=== PATIENT | male | born 1965 | race Caucasian/White ===

== ENCOUNTER → 2018-06-15 20:23 | Outpatient (CLI) | payer OTHER, SELFPAY | PROVIDERS: Visit Provider Family Medicine | DX: G47.33 Obstructive sleep apnea (adult) (pediatric) (principal) | CPT/HCPCS: 95811 ==

== ENCOUNTER → 2018-07-01 10:51 | Outpatient (CLI) | payer OTHER, SELFPAY ==
[2018-07-01 11:22] LABS: Hematocrit 40.5 % (40-54); Hemoglobin 13.4 g/dl (13.0-16.5); Mean Corp Hgb Conc 33.1 g/gl (32-36); Mean Corpuscular Hgb 29.5 pg (27.0-32.0); Mean Platelet Vol. 10.6 fl (6.2-12.0); Platelet Count 250 K/mm3 (150-450); RBC Distribution Width CV 12.7 % (11.6-14.6); RBC Distribution Width SD 40.6 fl (35.1-43.9); Red Blood Count 4.55 M/mm3 (4.6-6.2); White Blood Count 6.9 K/mm3 (4.4-11.0)
[2018-07-01 11:23] LABS: Scan Indicated on CBC? Y/N NO
[2018-07-01 12:01] LABS: ALB/GLOB Ratio 0.9 RATIO (0.9-2.4); AST(SGOT) 21 U/L (15-37); Alanine Aminotransfer ALT/SGPT 30 U/L (16-61); Albumin, Serum 3.4 g/dL (3.2-5.0); Alkaline Phosphatase 79 U/L (45-117); Anion Gap 5 (5-15); BUN 9 mg/dL (7-18); BUN/Creat Ratio 7.3 RATIO (10-20); Calcium,Total 8.2 mg/dL (8.5-10.1); Chloride 106 mmol/L (98-107); Cholesterol 159 mg/dL (200); Creatinine, Serum 1.23 mg/dL (0.70-1.30); EST Glomerular Filtration Rate 65 mL/min (>60); Est Glom Filt Rate - Afr Amer 79 mL/min (>60); Globulin 3.7 g/dL (2.2-4.2); Glucose 99 mg/dL (74-106); High Density Lipoprotein 36 mg/dL; Potassium 3.7 mmol/L (3.5-5.1); Protein, Total 7.1 g/dL (6.4-8.2); Sodium Level 140 mmol/L (136-145); Thyroid Stim Hormone (TSH) 2.18 uIU/mL (0.358-3.74); Triglycerides 140 mg/dL; Very Low Density Lipoprotein 28 mg/dL (5-40)
== END ==
PROVIDERS: Family Provider Family Medicine; PCP Family Medicine; Visit Provider Family Medicine
DX: Z00.00 Encounter for general adult medical examination without abnormal findings (principal); E03.9 Hypothyroidism, unspecified; E55.9 Vitamin D deficiency, unspecified
CPT/HCPCS: 36415; 80053; 80061; 82306; 84443; 85027

== ENCOUNTER → 2020-08-14 13:02 | Outpatient (CLI) | payer OTHER, SELFPAY ==
[2019-12-14 13:54] VITALS: BMI 34.8
[2020-08-14 13:30] LABS: Hematocrit 39.7 % (40-54); Mean Corp Hgb Conc 32.7 g/dL (32-36); Mean Corpuscular Hgb 29.7 pg (27.0-32.0); Mean Corpuscular Volume 90.8 fL (80-94); Mean Platelet Vol. 11.1 fl (6.2-12.0); Platelet Count 251 K/mm3 (150-450); RBC Distribution Width CV 12.2 % (11.6-14.6); RBC Distribution Width SD 40.4 fl (35.1-43.9); Red Blood Count 4.37 M/mm3 (4.6-6.2); White Blood Count 6.8 K/mm3 (4.4-11.0)
[2020-08-14 13:34] LABS: Erythrocyte Sedimentation Rate 6 mm/hr (0-20)
[2020-08-14 14:08] LABS: ALB/GLOB Ratio 1.1 RATIO (0.9-2.4); AST(SGOT) 21 U/L (15-37); Alanine Aminotransfer ALT/SGPT 30 U/L (16-61); Albumin, Serum 3.7 g/dL (3.2-5.0); Alkaline Phosphatase 66 U/L (45-117); Anion Gap 2 (5-15); BUN 20 mg/dL (7-18); BUN/Creat Ratio 17.7 RATIO (10-20); Calcium,Total 8.6 mg/dL (8.5-10.1); Chloride 108 mmol/L (98-107); Cholesterol 143 mg/dL (200); Creatinine, Serum 1.13 mg/dL (0.70-1.30); EST Glomerular Filtration Rate 72 mL/min (>60); Est Glom Filt Rate - Afr Amer 87 mL/min (>60); Globulin 3.3 g/dL (2.2-4.2); Glucose 83 mg/dL (74-106); High Density Lipoprotein 46 mg/dL; Potassium 4.4 mmol/L (3.5-5.1); Sodium Level 139 mmol/L (136-145); Thyroid Stim Hormone (TSH) 1.73 uIU/mL (0.358-3.74); Triglycerides 91 mg/dL; Very Low Density Lipoprotein 18 mg/dL (5-40)
== END ==
PROVIDERS: PCP Family Medicine; Referring Provider Family Medicine; Visit Provider Family Medicine
DX: Z00.00 Encounter for general adult medical examination without abnormal findings (principal); R06.02 Shortness of breath; E03.9 Hypothyroidism, unspecified; U07.1 COVID-19; I25.10 Atherosclerotic heart disease of native coronary artery without angina pectoris
CPT/HCPCS: 36415; 80053; 80061; 84443; 85027; 85652; 86141

== ENCOUNTER → 2020-09-06 | Outpatient (CLI) | payer OTHER, SELFPAY ==
[2019-12-14 13:54] VITALS: BMI 34.8
--- NOTE | 2020-09-06 12:35 | ECHOCS_ITS ---
Reason For Study: SOB Procedure This was a 2D Doppler, Color Flow transthoracic echocardiogram. The study was technically difficult. Contrast injection was performed. Exam performed in department. Left Ventricle Normal LV size. Left ventricular systolic function is normal. The estimated ejection fraction is 60 %. Transmitral doppler flow suggestive of impaired relaxation of left ventricle. No regional wall motion abnormalities noted. Right Ventricle Normal RV size. Normal systolic function. Atria Normal left atrium. Normal right atrium. Agitated saline contrast study positive for right to left interatrial shunt compatible with either a PFO versus ASD. Mitral Valve There is no mitral annular calcification. Normal mitral valve. Trivial mitral valve insufficiency. Tricuspid Valve Normal tricuspid valve. Trivial tricuspid valve insufficiency. Unable to estimate RV systolic pressure/pulmonary artery pressure due to technically difficult study. Aortic Valve Trisinus/trileaflet aortic valve. Normal aortic valve. Pulmonic Valve The pulmonic valve is not well visualized. Trivial pulmonic valve insufficiency. Great Vessels Normal sized aortic root. Pericardium/Pleural No pericardial effusion. Medication 22 gauge I.V. with prn adaptor inserted into left arm. Diluted definity 4ml given slow IV push to enhance endocardial definition. MMode/2D Measurements & Calculations LVIDd: 5.2 cm IVSd: 0.88 cm Ao root diam: 3.4 cm LVIDs: 3.4 cm LVPWd: 1.0 cm RVDd: 3.6 cm FS: 34.1 % LAV(MOD-bp): 47.5 ml LVAd ap4: 35.4 cm2 SV(MOD-sp4): 77.0 ml LAV(MOD-bp) Indexed: 20.2 ml/m2 EDV(MOD-sp4): 132.8 ml LAV(MOD-sp2): 52.4 ml EDV(sp4-el): 137.1 ml LAV(MOD-sp4): 39.0 ml LVAs ap4: 21.5 cm2 ESV(MOD-sp4): 55.8 ml ESV(sp4-el): 56.8 ml EF(MOD-sp4): 58.0 % EF(sp4-el): 58.6 % SV(sp4-el): 80.3 ml LA A4 area: 15.6 cm2 LA dimension(2D): 4.2 cm RA A4 area: 15.5 cm2 Time Measurements MV dec time: 0.27 sec Doppler Measurements & Calculations MV E max hector: 71.5 cm/sec Lat Peak E' Hector: 9.3 cm/sec Med Peak E' Hector: 6.8 cm/sec MV A max hector: 88.5 cm/sec E/E' lat: 7.7 E/E' med: 10.5 MV E/A: 0.81 Ao V2 max: 147.4 cm/sec LV V1 max: 111.6 cm/sec PA V2 max: 99.3 cm/sec Ao max P.7 mmHg LV V1 max P.0 mmHg PI end-d hector: 69.6 cm/sec Interpretation Summary The study was technically difficult. Contrast injection was performed. Left ventricular systolic function is normal. The estimated ejection fraction is 60 %. Trivial mitral valve insufficiency. Trivial tricuspid valve insufficiency. Trivial pulmonic valve insufficiency. Unable to estimate RV systolic pressure/pulmonary artery pressure due to technically difficult study. Transmitral doppler flow suggestive of impaired relaxation of left ventricle Agitated saline contrast study positive for right to left interatrial shunt compatible with either a PFO versus ASD. Ordering Physician: Malcom Vivar Referring Physician: Malcom Vivar Performed By: Soniya Bryant RDCS
--- NOTE | 2020-09-06 12:35 | EKG12_ITS ---
Test Reason : PRE OP Blood Pressure : / mmHG Vent. Rate : 078 BPM Atrial Rate : 078 BPM P-R Int : 152 ms QRS Dur : 086 ms QT Int : 352 ms P-R-T Axes : 031 -12 040 degrees QTc Int : 401 ms Sinus rhythm with occasional Premature ventricular complexes Otherwise normal ECG Confirmed by ALEJANDRO URIARTE, SUKI ([id number]), newspaper photo editor DESTINEE TAYLOR ([id number]) on 09/09/2020 8:12:25 AM Referred By: Malcom Vivar Confirmed By:SUKI ALLEN MD
== END | disposition home or self-care (01) ==
LOC: PSN 12:33
PROVIDERS: PCP Family Medicine; Referring Provider Family Medicine; Visit Provider Family Medicine
DX: I25.10 Atherosclerotic heart disease of native coronary artery without angina pectoris (principal); R06.02 Shortness of breath; U07.1 COVID-19
CPT/HCPCS: 93005; 93306; Q9957; A4216; C8929

== ENCOUNTER → 2025-03-14 | Outpatient (CLI) | payer OTHER, SELFPAY ==
--- NOTE | 2025-03-14 10:17 | RAD_ITS ---
PROCEDURE: KNEE 4 OR MORE VIEWS 03/14/2025 REASON FOR EXAM: CHRONIC KNEE PAIN TECHNIQUE: 4 views of the right knee FINDINGS: Bones: No fracture. No suspicious bone lesion. Joints: Moderate degenerative changes. Effusion: Small joint effusion. Soft tissues: Soft tissues are unremarkable. Other: RAD/Knee 4 or More Views IMPRESSION: DEGENERATIVE OSTEOARTHROSIS. NO ACUTE FINDINGS. Reading Location: [id number]
--- NOTE | 2025-03-14 10:17 | RAD_ITS ---
PROCEDURE: KNEE 4 OR MORE VIEWS 03/14/2025 REASON FOR EXAM: CHRONIC KNEE PAIN TECHNIQUE: 4 views of the left knee FINDINGS: Bones: No fracture. No suspicious bone lesion. Joints: Moderate degenerative changes. Effusion: Small joint effusion. Soft tissues: Soft tissues are unremarkable. Other: RAD/Knee 4 or More Views IMPRESSION: DEGENERATIVE OSTEOARTHROSIS. NO ACUTE FINDINGS. Reading Location: [id number]
== END | disposition home or self-care (01) ==
LOC: MTRAD 10:17
PROVIDERS: PCP Family Medicine; Referring Provider Orthopaedic Surgery; Visit Provider Orthopaedic Surgery
DX: M25.562 Pain in left knee (principal); G89.29 Other chronic pain
CPT/HCPCS: 73564

== ENCOUNTER → 2025-03-29 | Outpatient (CLI) | payer OTHER, SELFPAY ==
[2025-03-29 11:55] LABS: Absolute Lymphocyte Count 1.68 X10^3/uL (0.83-4.51); Absolute Neutrophil Count 3.6 X10^3/uL (2.0-7.7); Basophil# 0.04 X10^3/uL; Basophil% 0.7 % (0-1); Eosinophil# 0.12 X10^3/uL; Eosinophils% 2.1 % (0-5); Hematocrit 42.3 % (40-54); Hemoglobin 13.8 g/dL (13.0-16.5); Lymphocyte # 1.68 X10^3/ul (0.83-4.51); Lymphocyte % 28.8 % (19-41); Mean Corp Hgb Conc 32.6 g/dL (32-36); Mean Corpuscular Hgb 30.6 pg (27.0-32.0); Mean Corpuscular Volume 93.8 fL (80-94); Mean Platelet Vol. 11.2 fl (6.2-12.0); Monocyte# 0.39 X10^3/uL; Monocyte% 6.7 % (0-10); NRBC Flagged by Analyzer 0 % (0-5); Neutrophil # 3.56 X10^3/uL (2.7-7.7); Platelet Count 252 K/mm3 (150-450); RBC Distribution Width CV 12.9 % (11.6-14.6); RBC Distribution Width SD 44.2 fl (35.1-43.9); Red Blood Count 4.51 M/mm3 (4.6-6.2); White Blood Count 5.8 K/mm3 (4.4-11.0)
[2025-03-29 12:03] LABS: Prothrombin Time (Protime)PT. 13.8 SECONDS (11.7-14.9)
[2025-03-29 12:04] LABS: Partial Thromboplast Time 26.4 Seconds (24.1-36.2)
[2025-03-29 12:28] LABS: Hemoglobin A1c 5.6 % (<=5.6)
[2025-03-29 12:31] LABS: Anion Gap 10 (5-15); BUN 17 mg/dL (4-19); BUN/Creat Ratio 18.2 RATIO (10-20); Calcium,Total 9.1 mg/dL (7.6-11.0); Carbon Dioxide 25.5 mmol/L (21.0-32.0); Chloride 105 mmol/L (98-108); Creatinine, Serum 0.93 mg/dL (0.70-1.20); EST Glomerular Filtration Rate 95 (>60); Glucose 96 mg/dL (70-99); Magnesium 2.3 mg/dL (1.5-2.2); Potassium 4.3 mmol/L (3.3-5.1); Sodium Level 140 mmol/L (133-145)
[2025-03-30 05:07] LABS: Fructosamine 235 umol/L (0-285)
== END | disposition home or self-care (01) ==
LOC: LAB 11:09
PROVIDERS: Anesthesiology; PCP Family Medicine; Referring Provider Orthopaedic Surgery; Visit Provider Orthopaedic Surgery
DX: Z01.818 Encounter for other preprocedural examination (principal)
CPT/HCPCS: 36415; 80048; 82985; 83036; 83735; 85025; 85610; 85730; 86850; 86900; 86901; 87077; 87081

== ENCOUNTER → 2025-04-03 | Outpatient (CLI) | payer OTHER, SELFPAY ==
--- NOTE | 2025-04-03 07:14 | CT_ITS ---
PROCEDURE: EXTREMITY LOWER WITHOUT CONTRA 04/03/2025 REASON FOR EXAM: TEMPLATING FOR RIGHT TKA Enrique protocol. TECHNIQUE: Axial CT images of the right lower extremity obtained without intravenous contrast. Coronal and Sagittal reconstruction series were provided. One or more dose reduction techniques were used (e.g., Automated exposure control, adjustment of the mA and/or kV according to patient size, use of iterative reconstruction technique). RADIATION DOSE SUMMARY: CTDlvol: 19 mGy DLP: 1419.78 mGycm COMPARISON: None FINDINGS: Bones: No evidence of fracture. Joints: Imaging of the right hip joint was obtained. There is marked degree of of the prior knee joint with moderate degree of osteoarthritis of the patellofemoral joint. Imaging of the ankle joint was obtained. No significant abnormality is seen. Soft Tissues: Tiny right knee joint effusion. CT/Extremity Lower without Contra IMPRESSION: Osteoarthritis of the right knee joint as described for Enrique protocol. Reading Location: [id number]
== END | disposition home or self-care (01) ==
LOC: CT 07:08
PROVIDERS: PCP Student in an Organized Health Care Education/Training Program; Referring Provider Orthopaedic Surgery; Visit Provider Orthopaedic Surgery
DX: M17.11 Unilateral primary osteoarthritis, right knee (principal)
CPT/HCPCS: 73700

== ENCOUNTER 2025-04-10 08:58 | Day surgery (SDC) | payer OTHER, SELFPAY ==
--- NOTE | 2025-03-29 11:35 | EKG12_ITS ---
Test Reason : PREOP Blood Pressure : */* mmHG Vent. Rate : 61 BPM Atrial Rate : 61 BPM P-R Int : 134 ms QRS Dur : 82 ms QT Int : 384 ms P-R-T Axes : 19 2 18 degrees QTcB Int : 386 ms Normal sinus rhythm Normal ECG Confirmed by Aren Madison ([id number]), editor index EMILY ESTES ([id number]) on 03/30/2025 12:20:17 PM Referred By: Ariel Antonio Confirmed By: Aren Madison
--- NOTE | 2025-03-29 15:13 | PAT.ANESEVAL ---
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 When Was Last Pacemaker Check QUESTION #4 FULL TEXT: You/Your Family Experience fever (hyperthermia) with Anesthesia Last Oral Intake Last Oral intake: Last Oral Intake NPO since Meds taken in AM with sips of water? Meds patient instructed to take am of surgery PONV PONV - senior drafter: PONV - senior drafter Female No 03/27/25 09:35 HX of Motion Sickness No 03/27/25 09:35 HX of N/V After Surgery No 03/27/25 09:35 Non-Smoker Yes 03/27/25 09:35 Duration of Surgery greater No 03/27/25 09:35 than 60 minutes Number of Risk Factors 1 03/27/25 09:35 PONV Score Low Risk 03/27/25 09:35 Height & Weight Height & Weight: Anesthesia: Height & Weight Height 5 ft 10 in 03/14/25 10:39 Respiratory Assessment Respiratory Assessment - senior drafter: Respiratory Tract Infection Hx - senior drafter Hx Respiratory Tract Infection No 03/27/25 09:35 STOP Sleep Apnea STOP Sleep Apnea - senior drafter: STOP Sleep Apnea - senior drafter Hx Hypertension No 03/27/25 09:35 Hx Sleep Apnea No 03/27/25 09:35 CPAP BIPAP Do you snore loudly (louder Yes 03/27/25 09:35 than talking or can be heard Do you often feel tired/ No 03/27/25 09:35 fatigued/ sleepy during daytime? Has anyone observed you stop No 03/27/25 09:35 breathing during sleep? STOP Results Negative 03/27/25 09:35 QUESTION #5 FULL TEXT : Do you snore loudly (louder than talking or can be heard through closed doors)? 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 Specify any problems Hx of Preganancy in last 3 N/A 03/27/25 09:35 Months Nurse Filling Out Transfusion VCHRISTIN 03/27/25 09:35 & Questions: Date: 03/27/25 03/27/25 09:35 Time: 09:44 03/27/25 09:35 Patient unable to answer at this time (ie. confused, unrespo /Reproduction History /Reproductive History - senior drafter: /Reproductive Hx- senior drafter Hx Now Gestational Age (in weeks): EDC: Hx Hx Para Hx Section SAB PFSH Medical History Wears glasses Wears contact lenses Alcohol use Kidney stones Back pain Injury of back Injury of head and neck Non-smoker Sleep apnea History of edema History of pain when walking History of echocardiogram History of stress test Osteoarthritis Chronic headaches Cataracts, bilateral Arthritis Home Medications ?Medication ?Instructions ?Recorded ?Last Taken ?Type hydrocodone-acetaminophen 5-325mg 1 tab PO BID PRN pain 03/14/25 Unknown History 5mg-325mg meloxicam 15 mg tablet 15 mg PO QDAY 03/14/25 Unknown History pregabalin 150 mg capsule (Lyrica) 150 mg PO TID 03/14/25 Unknown History acetaminophen 500 mg capsule 1,000 mg PO Q6H PRN pain 03/27/25 Unknown History cholecalciferol (vitamin D3) 25 25 mcg PO DAILY 03/27/25 Unknown History mcg (1,000 unit) capsule (Vitamin D3) Allergy/AdvReac Type Severity Reaction Status Date / Time Penicillins Allergy Rash Verified 03/28/25 15:11 Family History Other Cancer Melanoma Surgical History Hx of elbow surgery History of rhinoplasty Hx of knee surgery Hx of appendectomy History of cataract surgery History of lumbar fusion Social History Smoking Status: Never smoker alcohol intake: current alcohol intake frequency: holidays/special occasions only substance use type: does not use what type of physical activity do you participate in: aerobics and weight training frequency: 1-2 times per week Audit: Pertinent Findings Pertinent Findings EKG Perinent findings: 09/06/20. Sinus rhythm with occasional PVC. Echo (EF%) pertinent findings: 09/06/2020. EF is 60%. No aortic stenosis is noted. Recommendation Anesthesia Recommendation Anesthesia recommendation: OPTIMIZED for anesthesia
[2025-04-10] VITALS (11 sets, daily range): BP systolic 112–139; BP diastolic 49–88; PULSE 54–80; RESP 8–16; TEMP 36.1–36.6; O2SAT 95–100; BMI 33.8
--- NOTE | 2025-04-10 09:06 | PCM.PRE.AN2 ---
ASA Classification* ASA Classification ASA Classification: 2 Assessment & Plan Anesthesia* Anesthesia Assessment Anesthesia Assessment: Discussed sedation and/or anesthesia options, risks, benefits, and alternatives with patient/parents/legal guardian/POA. Questions invited. The patient/parents/legal guardian/POA seems to understand and agrees to proceed with anesthesia plan. Reviewed the physical assessment, medical history, allergy history and patient home medications list prior to surgery/procedure/anesthetic and documented any changes. Performed airway and anesthesia risk assessments. Anesthesia Type Anesthesia Type: Spinal and Block Anesthesia Focused Assessment* Airway Assessment Mouth opens: >3 cm Mallampati Score: II Focused Labs Anesthesia Preop lab: CBC WBC 5.8 K/mm3 (4.4-11.0) 03/29/25 11:03/29/25 RBC 4.51 M/mm3 (4.6-6.2) L 03/29/25 11:20 03/29/25 Hgb 13.8 g/dL (13.0-16.5) 03/29/25 11:20 03/29/25 Hct 42.3 % (40-54) 03/29/25 11:20 03/29/25 Plt Count 252 K/mm3 (150-450) 03/29/25 11:20 03/29/25 CHEMISTRY Potassium 4.3 mmol/L (3.3-5.1) 03/29/25 11:20 03/29/25 Sodium 140 mmol/L (133-145) 03/29/25 11:20 03/29/25 Magnesium 2.3 mg/dL (1.5-2.2) H 03/29/25 11:20 03/29/25 Phosphorus 2.8 mg/dL (2.5-4.9) 08/07/16 15:19 08/07/16 BUN 17 mg/dL (4-19) 03/29/25 11:20 03/29/25 Creatinine 0.93 mg/dL (0.70-1.20) 03/29/25 11:20 03/29/25 Glucose 96 mg/dL (70-99) 03/29/25 11:20 03/29/25 TSH 1.73 uIU/mL (0.358-3.74) 08/14/20 13:09 08/14/20 COAG PT 13.8 SECONDS (11.7-14.9) 03/29/25 11:20 03/29/25 Pre-Assessment Diagnosis/Proposed Procedure Planned Operative Procedure(s): (R) Right Total Knee Replacement Robotic Arm Assisted, ERAS Anesthesia History 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 When Was Last Pacemaker Check QUESTION #4 FULL TEXT: You/Your Family Experience fever (hyperthermia) with Anesthesia Last Oral Intake Last Oral intake: Last Oral Intake NPO since Meds taken in AM with sips of water? 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 manager Female No 03/27/25 09:35 HX of Motion Sickness No 03/27/25 09:35 HX of N/V After Surgery No 03/27/25 09:35 Non-Smoker Yes 03/27/25 09:35 Duration of Surgery greater No 03/27/25 09:35 than 60 minutes Number of Risk Factors 1 03/27/25 09:35 PONV Score Low Risk 03/27/25 09:35 Height & Weight Height & Weight: Anesthesia: Height & Weight Height 5 ft 10 in 03/14/25 10:39 Respiratory Assessment Respiratory Assessment - actuarial manager: Respiratory Tract Infection Hx - actuarial manager Hx Respiratory Tract Infection No 03/27/25 09:35 STOP Sleep Apnea STOP Sleep Apnea - actuarial manager: STOP Sleep Apnea - actuarial manager Hx Hypertension No 03/27/25 09:35 Hx Sleep Apnea No 03/27/25 09:35 CPAP BIPAP Do you snore loudly (louder Yes 03/27/25 09:35 than talking or can be heard Do you often feel tired/ No 03/27/25 09:35 fatigued/ sleepy during daytime? Has anyone observed you stop No 03/27/25 09:35 breathing during sleep? STOP Results Negative 03/27/25 09:35 QUESTION #5 FULL TEXT : Do you snore loudly (louder than talking or can be heard through closed doors)? 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 Specify any problems Hx of Preganancy in last 3 N/A 03/27/25 09:35 Months Nurse Filling Out Transfusion VCHRISTIN 03/27/25 09:35 & Questions: Date: 03/27/25 03/27/25 09:35 Time: 09:44 03/27/25 09:35 Patient unable to answer at this time (ie. confused, unrespo /Reproduction History /Reproductive History - actuarial manager: /Reproductive Hx- actuarial manager Hx Now Gestational Age (in weeks): EDC: Hx Hx Para Hx Section SAB Active Medications Active Medications: Current Medications Generic Name Dose Route Start Last Admin Trade Name Toyq PRN Reason Stop Dose Admin Acetaminophen 1,000 mg 04/10/25 11:15 Acetaminophen 500 Mg Tablet PO 04/10/25 11:16 PREOP ONE Celecoxib 400 mg 04/10/25 11:15 Celecoxib 200 Mg Capsule PO 04/10/25 11:16 PREOP ONE Dexamethasone Sodium Phosphate 10 mg 04/10/25 11:15 Dexamethasone 10 Mg/Ml Vial IV 04/10/25 11:16 INTRAOP ONE Gabapentin 600 mg 04/10/25 11:15 Gabapentin 600 Mg Tablet PO 04/10/25 11:16 PREOP ONE Tranexamic Acid 1,000 mg/ 110 mls @ 660 mls/hr 04/10/25 11:15 Sodium Chloride IV 04/10/25 11:24 INTRAOP ONE Tranexamic Acid 1,000 mg/ 110 mls @ 660 mls/hr 04/10/25 11:15 Sodium Chloride IV 04/10/25 11:24 INTRAOP ONE Lactated Ringer's 1,000 mls @ 125 mls/hr 04/10/25 11:15 IV 04/10/25 19:14 .Q8H GER Magnesium Sulfate 1 gm/ 102 mls @ 408 mls/hr 04/10/25 11:15 Dextrose IV 04/10/25 11:29 INTRAOP ONE Cefazolin Sodium 2 gm/ Sodium 110 mls @ 150 mls/hr 04/10/25 11:15 Chloride IV 04/10/25 11:58 INTRAOP ONE Lactated Ringer's 1,000 mls @ 15 mls/hr 04/10/25 09:15 IV .Q48H GER Insulin Human Lispro 1 - 6 unit 04/10/25 11:15 Insulin Lispro 100 Unit/Ml Insuln.Pen SC 04/10/25 18:00 Q4H PRN PRN BG>/= 180, SEE PROTOCOL Protocol Scopolamine HBr 1 patch 04/10/25 11:15 Scopolamine 1mg/72hr Patch TD 04/10/25 11:16 PREOP ONE PFSH Medical History Wears glasses Wears contact lenses Alcohol use Kidney stones Back pain Injury of back Injury of head and neck Non-smoker Sleep apnea History of edema History of pain when walking History of echocardiogram History of stress test Osteoarthritis Chronic headaches Cataracts, bilateral Arthritis Home Medications ?Medication ?Instructions ?Recorded ?Last Taken ?Type hydrocodone-acetaminophen 5-325mg 1 tab PO BID PRN pain 03/14/25 Unknown History 5mg-325mg meloxicam 15 mg tablet 15 mg PO QDAY 03/14/25 Unknown History pregabalin 150 mg capsule (Lyrica) 150 mg PO TID 03/14/25 Unknown History acetaminophen 500 mg capsule 1,000 mg PO Q6H PRN pain 03/27/25 Unknown History cholecalciferol (vitamin D3) 25 25 mcg PO DAILY 03/27/25 Unknown History mcg (1,000 unit) capsule (Vitamin D3) Allergy/AdvReac Type Severity Reaction Status Date / Time Penicillins Allergy Rash Verified 03/28/25 15:11 Family History Other Cancer Melanoma Surgical History Hx of elbow surgery History of rhinoplasty Hx of knee surgery Hx of appendectomy History of cataract surgery History of lumbar fusion Social History Smoking Status: Never smoker alcohol intake: current alcohol intake frequency: holidays/special occasions only substance use type: does not use what type of physical activity do you participate in: aerobics and weight training frequency: 1-2 times per week Review of Systems (Anesthesia) ROS Narrative System reviewed and no additional complaints, except as documented.
[2025-04-10] MEDS: Vancomycin HCl 1,500 MG in 0.9% Normal Saline (500mL Bag) 500 ML 250 MG IV (09:30)
[2025-04-10 09:43] LABS: Bedside Glucose 95 mg/dL (74-106)
[2025-04-10] MEDS: Scopolamine 1mg/72hr Patch 1 PATCH TD (10:07)
[2025-04-10] MEDS: Acetaminophen 500 MG Tablet 1000 MG PO ×2 (10:09→15:48)
[2025-04-10] MEDS: Gabapentin 600 MG Tablet PO (10:09)
[2025-04-10] MEDS: Celecoxib 200 MG Capsule 400 MG PO (10:09)
[2025-04-10] MEDS: Magnesium 1 GM over 15 mins IV (10:10)
--- NOTE | 2025-04-10 10:10 | HP.PCM_ITS ---
History and Physical Date of Admission: 04/10/25 [facility] [address] [place] [address] OFFICE VISIT Date of Service: 03/14/25 MR#: [id number] Acct: [id number] Name: ROXI MORELAND Jr. Rep #: [id number] : 1965 Provider: Dr. Ariel Antonio DO Age/Sex: 59/M Location: [facility] Status: Signed Intake Vital Signs 03/14/2510:39 Height 5 ft 10 in Weight: 232 lb BMI 33.3 Intake Visit Reasons: BILATERAL KNEES Chief Complaint: Bilateral knees Accompanied by: Self Is patient in pain?: Yes Pain scale (1-10): 7 Allergies Penicillins Allergy (Verified 03/14/25 10:43) Rash Medications ?Medication ?Instructions ?Recorded ?Confirmed ?Type ibuprofen 600 mg tablet 600 mg PO PRN PRN Pain 12/14/16 03/14/25 History hydrocodone-acetaminophen 5-325mg 1 tab PO BID PRN 03/14/25 03/14/25 Histo ry 5mg-325mg meloxicam 15 mg tablet 15 mg PO QDAY 03/14/25 03/14/25 History pregabalin 150 mg capsule (Lyrica) 150 mg PO QDAY 03/14/25 03/14/25 History Have you fallen in the past year?: [facility] History (Updated 03/14/25 @ 11:[address] Ariel Antonio DO) Infection of left elbow Osteoarthritis Chronic headaches Cataracts, bilateral Arthritis Surgical History History of cataract surgery History of lumbar fusion Family History Other Cancer Melanoma Social History (Updated 01/29/20 @ 12:[address] Ame Goncalves, JIM) Smoking Status: Never smoker alcohol intake: current alcohol intake frequency: holidays/special occasions only substance use type: does not use what type of physical activity do you participate in: aerobics and weight training frequency: 1-2 times per week HPI BILATERAL KNEES Details: This documentation accurately reflects the service provided and the decisions made by me, Dr. Ariel Antonio DO 03/14/25 0756. Part of today?s visit was documented by Ary Luque MA, acting as scribe. ROXI MORELAND is a 59 year old M with medical history significant for but not limited to lumbar degenerative disc disease, here today for bilateral knee pain. He states that the right knee is worse. His left leg symptoms are most related to his lumbar radiculopathy. His right knee pain is mostly medial. He has been having pain for 5-10 years and it getting worse over time. He does have a history of a lumbar fusion and does get radiculopathy down the left leg. 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 His left leg is weaker than the right. He did have an open surgery on his right knee where they cleaned out the knee in 1978. He did have steroid injections starting in 2018. He did have gel injection in 2020. His last steroid injection was in early November of this year. Over the years he has had about 10- 12 steroid injections. 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 Denies any drugs or tobacco. 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 Ortho Exam General General: Yes no acute distress and Yes well groomed Neurologic: Yes alert and Yes oriented x3 Psychologic: Yes reasonable and appropriate Right Knee Skin/Wound: No erythema, No ecchymosis and Yes swelling Homans Sign: No Knee ROM: Yes ROM-Extension -20 to 0 (-5) and Yes ROM-Flexion 0-140 (110) Examination: Yes Med jt line tenderness, Yes Lat jt line tenderness, Yes Crepitus, Yes Pain with flexion, Yes Pain with extention and Yes TTP Pes Anserine Stability: NML: Anterior Drawer, NML: Posterior Drawer, NML: Valgus 0, NML: Valgus 30, NML: Varus 0 and NML: Varus 30 Patella Translation: 1 Apprehension with Lateral Translation: No Patella Grind: Yes KNEE: no effusion pain with crepitation edema right leg worse than left medial scar from prior surgery no sign of infection no collateral instability Head: Normocephalic Atraumatic Chest: symmetrical rise, non-labored breathing, no audible wheeze Abdomen: no guarding, non-rigid Supplemental Info 03/14/2025 x-ray left knee: There is advanced medial compartment arthrosis with varus deformity there is spurring of the lateral tibial plateau moderate patellofemoral arthrosis 03/14/2025 x-ray right knee: There is advanced medial compartment arthrosis with varus deformity there is spurring of the lateral tibial plateau moderate patellofemoral arthrosis Coding Level of Care Code Off vis,new,level 3 Diagnoses Primary osteoarthritis of right knee M17.11 Osteoarthritis type: primary Primary osteoarthritis of left knee M17.12 Osteoarthritis type: primary Chronic narcotic use F11.90 Assessment and Plan Assessment and Plan (1) Right knee DJD: Status: Acute Qualifiers: Osteoarthritis type: primary Qualified Code(s): M17.11 - Unilateral primary osteoarthritis, right knee (2) Left knee DJD: Status: Acute Qualifiers: Osteoarthritis type: primary Qualified Code(s): M17.12 - Unilateral primary osteoarthritis, left knee (3) Chronic narcotic use: Status: Chronic Orders: Orders Knee 4 or More Views Today M25.562 - Pain in left knee Knee 4 or More Views Today M25.561 - Pain in right knee Plan Patient is here today for bilateral knee pain. I did obtained and review xrays today. I educated patient that he does have advanced arthritis of both knee more in the medial compartment and patellofemoral. I spoke with patient that his treatment options are do nothing, physical therapy, gel injections, steroid injections, anti-inflammatories, or a TKA. Patient wishes to proceed with a TKA of the right knee. Patient has had trial and failure of physical therapy, steroid injection, gel injections, knee bracing and anti-inflammatories. Reviewed the pre-operative plans with the patient. Risks and benefits of the procedure were fully explained, including but not limited to infection, neurovascular injury, continued pain, arthritis, stiffness, need for further surgery, re-injury, DVT, PE, general risks of anesthesia, and loss of limb or life. The patient understands all the risks and does wish to proceed with written consent. Risks, benefits and alternatives of surgery reviewed including but not limited to bleeding, infection, nerve, artery and/or tissue damage, fracture, VTE, mechanical feel of the knee, continued pain, stiffness and expected post-operative course.?Patient does have a crown that fell off one of his teeth that is not open or infected. Patient would like to hold off on having a new crown put on until after surgery. I would recommend patient wait until 3 months after surgery before getting the crown. We will need a dental clearance. He should plan to be off of work for 3 months. Patient does wok as an weight trainer and does know the exercises but I strongly recommend he go to physical therapy after the surgery or he will likely not be happy with his range of motion. I also encouraged him for preoperative therapy. I advised him that after a knee replacement he may not feel comfortable ever kneeling and if he does he should use a pad. Patient would like to do the Iovera procedure if insurance covers it. Tentative surgery date April 10, 2025 same-day surgery We did discuss MAKOplasty and will need a CT scan He will need to stop all NSAIDs 7 days prior to surgery. Plan Details Goals & Barriers: Goals Improve intersegmental motion Decrease inflammation Improve ROM Decrease pain Barriers Previous lumbar fusion at L2/L3 DDD Clinical Quality Measures Falls Risk Screening/Assistive Devices Have you fallen in the past year?: Yes 03/14/25 8531 <Electronically signed by Ariel Antonio DO> Date Ariel Antonio DO I have examined the patient and the H&P has been reviewed. There are no clinical changes since date of exam.
[2025-04-10] MEDS: Lactated Ringers 1,000 ML 15 ML IV (10:13)
[2025-04-10] MEDS: Cefazolin 2 GM in 0.9% Normal Saline (100mL Bag) 100 ML IV ×2 (11:00→16:45)
--- NOTE | 2025-04-10 11:00 | KNEE_PTH ---
PATIENT: ROXI MORELAND Jr. LOC: [facility] [place] U#:[id number] AGE/SX: 59/M ROOM: RE04/10/[address]: Dr. Ariel Antonio DO : 1965 BED: DIS: 04/10/2025 SPEC #: [id number] RECD: 04/10/25 18:17 STATUS: BEV REQ #: [id number] SARATH: 04/10/25 11:[address]: Ariel Antonio DEPT: SURGICAL PATHOLOGY RECD BY: Roger Cassidy ENTERED: 04/11/25 08:46 SP TYPE: TOTAL KNEE OTHR DR: Dr. Aren Jaimes DO Tissues: A - Knee, NOS Procedures: Decalcification bone/plaque Surgery Specimen Level III HEADER OPERATION: ERAS, right total knee replacement robotic arm assisted PRE-OP DIAGNOSIS: Right knee degenerative joint disease, left knee degenerative joint disease, chronic narcotic use TISSUE SUBMITTED: A- Bone and soft tissue right knee MICROSCOPIC DIAGNOSIS A. Right knee, degenerative joint disease, total knee arthroplasty: * Articular bone with reactive/degenerative changes. MICROSCOPIC DESCRIPTION Slides are reviewed. GROSS DESCRIPTION A. Received in formalin in a container labeled with the patient's name, date of , and bone and soft tissue R knee are multiple keen, firm, and irregular fragments of bone with minimal soft tissue measuring 9.5 x 8.0 x 5.2 cm in aggregate. The specimen consists of, but is not limited to, medial/lateral condyle and tibial plateau. The resection margins are smooth and firm and the cortical surfaces are pitted and granular with smooth areas of eburnation. Sectioning reveals firm and unremarkable surfaces. Toy Department Manager sections submitted in A1 following decalcification. [facility] 04-11-2025 CPT:23233,83859
[2025-04-10] MEDS: TXA 1000mg in NS100 100ml (IVPB at Incision) 660 MG IV (11:05)
[2025-04-10] MEDS: dexAMETHasone 10 MG/ML Vial IV (11:10)
[2025-04-10] MEDS: TXA 1000mg in NS100 100ml (IVPB at Closure) 660 MG IV (11:25)
[2025-04-10] MEDS: dexAMETHasone 4 MG/ML Vial (12:06)
[2025-04-10] MEDS: Epinephrine (1 mg/ml) 1 MG/ML VIAL (12:06)
[2025-04-10] MEDS: 0.9% Normal Saline (Pres. free 10 ML Vial (12:06)
[2025-04-10] MEDS: Bupivacaine 0.5% PF 10 ML VIAL (12:06)
--- NOTE | 2025-04-10 13:20 | PCM.OPRPT ---
Operative Report (Standard) Operative Information Date of Procedure: 04/10/25 Pre-Operative Diagnosis: Right knee DJD Post-Operative Diagnosis: Same Surgery/Procedure Performed: Right total knee arthroplasty business office director: Yes Emergency Department Aide: Pa Fermin Tasks completed by social human services assistants: Opening & closing, Implanting device and Retracting Type of Anesthesia: Spinal RN Documented Start/Stop Times: Operation Date: 04/10/25 11:00 Case Time Into Pre-Op 04/10/25 09:01 Out of Pre-Op 04/10/25 10:21 Anesthesia Start 04/10/25 10:30 Into Room 04/10/25 10:30 Procedure Start 04/10/25 11:12 Procedure Start Time: 11:12 Procedure Stop Time: 13:18 Select all DRAINS/GRAFTS/IMPLANTS that apply: Prosthetic device Prosthetic device details: [place] triathlon Estimated Blood Loss: 150 Specimen collected: Yes Description of specimen(s) removed: Bone and soft tissue Description of surgery: Preoperative diagnosis: Right knee DJD Postoperative diagnosis: Same Procedure: Right total knee arthroplasty CT guided Robotic Assisted Implant: [place] triathlon press fit, femoral component size 6, tibial baseplate size 6, asymmetric patella size 36, polyethylene X3 size 9 CS Anesthesia: Spinal with adductor canal block Tourniquet time: 12 minutes at 300 mmHg Complications: None Condition: Stable to PACU Estimated blood loss: 150 cc Electronic Installer Pa Fermin. My physician assistant clinical nurse manager was a vital part of this case. He was important in appropriate retraction during the case, and protection of soft tissues during procedure. His intimate knowledge of the case and my steps aided in safe and expedient completion of the procedure as well as appropriate position of the extremity during the case. He was also vital in assisting with closure under my direct supervision. Indication for procedure: This is a 59-year-old male with long standing degenerative joint disease of the knee who has failed conservative treatment and wished to proceed with elective total knee arthroplasty. Risk benefits and alternatives were reviewed including; risk of bleeding, infection, nerve artery and tissue damage, continued pain, postoperative stiffness, venous thromboembolism, need for postoperative rehabilitation, mechanical feel to the knee, and expected postoperative course. The pre- operative CT and templating was performed with component sizing. Procedure: The patient was met in the preoperative holding area. The operative extremity was identified by both patient and physician and was marked. Patient was met by anesthesia. An adductor canal block was placed by anesthesia postoperatively the patient was brought back to the operating room on a wheeled cart and transferred to the operating table in the supine position. Anesthesia was started. A well-padded tourniquet was placed on the operative extremity. The patient was prepped and draped in the usual sterile fashion. A timeout was called to ensure the proper patient procedure and extremity were being contemplated. An esmarch was used to exsanguinate the extremity. The tourniquet was inflated. A 10 blade scalpel was used to make a midline incision down through the skin and subcutaneous tissue. Skin retractors placed. Bovie and Aquamantis were used to perform meticulous hemostasis. full-thickness flaps were elevated medial and lateral along the joint capsule. A deep blade scalpel was used to perform a medial parapatellar arthrotomy. The knee was brought to full extension. A bovie was used to release the soft tissues off the most proximal aspect of the medial tibial plateau, a three-quarter inch curved osteotome was also used in this process. The infrapatellar fat pad was excised. The suprapatellar fat pad was excised partially anteriorolateraly and portion the anterioromedial pad was elevated from the femur. At this point our intra-articular femoral array was placed at a 45 degree angle proximal and posterior to the medial epicondyle. femoral checkpoint was placed at this time. Our tibial array was placed partially intra incisional 1 stab incision was made for the inferior pin with a 15 blade scaple, and pins were placed and attached to the tibial array , tibial checkpoint was placed in the proximal tibial metaphysis. Tourniquet was let down. At this point registration march were taken throughout the knee . Once the knee was registered we then tensioned the medial and lateral ligaments in extension and 90 degrees of flexion. We then used these numbers to adjust our components within parameters to balance the knee in both flexion and extension once this was done on our monitor we then proceeded with using the robotic arm to make our tibial plateau cut, anterior and posterior chamfer and distal femur cuts. we removed the cut fragments with the use of a bovie and Neris, we did use a lamina mobile sales assistant to insure we visualized and removed all posterior osteophytes and at this time also used the Aquamantis on the posterior joint capsule. we then trialed and achieved the desired plan with a well-balanced knee. we used the green probe to ariadne the corresponding tibial rotation based on our CT template. Lug holes were drilled in the femur the tibia preparation was completed with the appropriate sized base plate pinned based on previous rotation ariadne. An appropriate sized fin punch was used on the tibia and 4 corner drill was used for the press fit component and the patella was prepared by first using a caliper to ensure sufficient bone stock and a patellar reamer to remove the desired amount of bone. lug holes drilled for an asymmetric poly. We then brought the knee through range of motion with excellent patellar tracking. We thoroughly irrigated the knee. Trial components were removed a posterior capsular injection was preformed with our standard cocktail. In addition the aqua Mantis was also used to aid in hemostasis. Betadine rinse was allowed to sit and washed out completely. Components were press-fit into place. Aricept rinse was then used followed by several more liters of irrigation after it was allowed to sit. The joint capsule was closed with #1 Ethibond [id number] in the upper part of the arthrotomy and #1 Vicryl in the lower part of the arthrotomy. , Followed by 2-0 Vicryl in the subcutaneous tissues with denny in the skin. Arrays and checkpoints were removed prior to closure all counts were correct stab incisions were closed with a staple standard dressing in the form of Mepilex AG for the main incision and a small Mepilex over the pin holes. Thigh-high OMA hose applied over top of dressing. Patient tolerated the procedure well and was directed to PACU in stable condition . There were no intraoperative complications. Surgical Findings: DJD knee Complications Complications: No
--- NOTE | 2025-04-10 13:24 | EX.PCM.DISCH ---
Discharge Instructions Diet Discharge Diet: No restrictions Activity Weight Bearing Status: Full weight bearing Dressing / Incision Call your doctor if you observe: Shortness of breath and Chest pain Additional Dressing/Incision Instructions:: Ice and elevate lower extremities 2 weeks while not ambulating. Ambulation is encouraged. Weight bearing as tolerated. Use assistive devise for stability. Encourage FULL knee extension and flexion 1 time EVERY time you get up and down and MULTIPLE times per day. No showering until 72 hours after surgery. May begin showering postop day #3. Remove the dressing prior to shower and gently wash with warm water and antibacterial soap then pat dry and place abdominal pad (or plain gauze) and OMA hose over top. If you decide not to begin showering 72 hrs post operatively and wish to sponge bath only, then you may leave dressing undisturbed for up to 1 week, but must remove prior to first shower. Do not submerge for 3 weeks. If not showering daily after the initial dressing is removed you must clean incision and change dressing daily after the dressing comes off, must come off by 7 days postop. Do not allow animals near the incision area. Keep clean. Follow anti-coagulation recommendations as prescribed. Do not take any NSAIDs while on blood thinner. Do not take any additional narcotic pain medication other than what was prescribed on your surgery day without discussing with physician. Narcotic medication can be addictive. Do not drink alcohol while taking narcotics. Supplement narcotic prescription with acetaminophen 1000 mg 4 times a day. Start physical therapy. If you are not currently scheduled for physical therapy or you are unsure of appointment time please call office [facility] to arrange. Call Dr. Antonio's office ) with any concerns. Follow Up Care Please Follow Up With: Ariel Antonio DO When: 2 weeks Test Results: Test results from this visit will be discussed in further detail at your follow-up appointment, if applicable. Discharge Plan Admission Primary Reason for Your Visit: Right total knee arthroplasty Attending Provider: Ariel Antonio Primary Care Provider: Aren Jaimes Instructions Print Language: Malian Discharge Orders/Prescriptions Prescriptions: New acetaminophen 500 mg tablet 1,000 mg PO Q6H Qty: 100 0RF cephalexin 500 mg capsule 1,000 mg PO Q8H Qty: 4 0RF Rx Instructions: Take 2 tabs before you go to bed and 2 tabs after 5 AM morning after surgery when you wake up Eliquis 2.5 mg tablet 2.5 mg PO BID Qty: 28 0RF Rx Instructions: Begin morning after surgery. oxycodone 5 mg tablet 5 - 10 mg PO Q4H PRN (Reason: pain) 7 Days Qty: 60 0RF Continued pregabalin [Lyrica] 150 mg capsule 150 mg PO TID cholecalciferol (vitamin D3) [Vitamin D3] 25 mcg (1,000 unit) capsule 25 mcg PO DAILY Held meloxicam 15 mg tablet 15 mg PO QDAY Hold Instructions: May resume after completion of blood thinner if needed Discontinued hydrocodone-acetaminophen 5-325 mg tablet 1 tab PO BID PRN (Reason: pain) acetaminophen 500 mg capsule 1,000 mg PO Q6H PRN (Reason: pain) Referrals / Follow Up: Malcom Vivar MD [Non-Staff] - Disposition Disposition (needs filled in before D/C Order can be placed): Home, Self Care
--- NOTE | 2025-04-10 13:42 | RAD_ITS ---
PROCEDURE: KNEE 1 OR 2 VIEWS 04/10/2025 REASON FOR EXAM: POST OP IN PACU TECHNIQUE: Right knee two views COMPARISON: None FINDINGS: There is a total knee prosthesis in position. Surgical clips and soft tissue air noted consistent with recent surgery. RAD/Knee 1 or 2 Views IMPRESSION: Hardware in position. Reading Location: [facility]
--- NOTE | 2025-04-10 13:43 | PCM.POST.ANE ---
Anesthesia: Postop Eval I Current Vital Signs Temperature: 97.6 F Pulse Rate: 71 Blood Pressure: 115/68 Respiratory Rate: 16 Pulse Ox: 97 Oxygen Delivery Method: Room Air Assessment Airway patent: Yes Spontaneous unlabored respirations: Yes Mental status: Awake and Calm nausea: No Vomiting: No Anesthesia Complication: No Fluid Hydration Crystalloid volume administer (ml): 1,300 Total IV fluid infused: 1,300 Progress Note Anesthesia document: Postop Eval 1 completed: Yes
[2025-04-10] MEDS: Ketorolac 30 MG/ML Syringe IV (14:22)
--- NOTE | 2025-04-10 15:39 | POSTOPAN2_ITS ---
Anesthesia Postop Eval I Sum Postop Eval Completion status Anesthesia document: Postop Eval 1 completed: Yes Anesthesia Postop Eval I Summary Anesthesia Postop Eval I Summary: Anesthesia Postop Eval I: Assessment Summary Airway patent Yes 04/10/25 13:43 [email or web address] [email or web address] Spontaneous unlabored Yes 04/10/25 13:43 GRADE [email or web address] respirations Mental status Awake,Calm 04/10/25 13:43 GRADE [email or web address] nausea No 04/10/25 13:43 GRADE [email or web address] Vomiting No 04/10/25 13:43 GRADE [email or web address] Anesthesia Postop Eval I: Fluid Summary Crystalloid volume administer 1,300 04/10/25 13:43 GRADE [email or web address] (ml) Colloids volume administered ( ml) Blood Product volume administered (ml) Total IV fluid infused 1,300 04/10/25 13:43 GRADE [email or web address] Anesthesia Postop Eval I: Summary Notes Anesthesia Complication No 04/10/25 13:43 GRADE [email or web address] Anesthesia Complication Comment: Post-operative progress note Anesthesia: Postop Eval II Evaluation Mental status: Awake Pain Level: 3 nausea: No Vomiting: No
--- NOTE | 2025-04-10 15:39 | PCM.POSTANE2 ---
Anesthesia Postop Eval I Sum Postop Eval Completion status Anesthesia document: Postop Eval 1 completed: Yes Anesthesia Postop Eval I Summary Anesthesia Postop Eval I Summary: Anesthesia Postop Eval I: Assessment Summary Airway patent Yes 04/10/25 13:43 [email or web address] [email or web address] Spontaneous unlabored Yes 04/10/25 13:43 LINER [email or web address] respirations Mental status Awake,Calm 04/10/25 13:43 LINER [email or web address] nausea No 04/10/25 13:43 LINER MAN.SOBR Vomiting No 04/10/25 13:43 LINER [email or web address] Anesthesia Postop Eval I: Fluid Summary Crystalloid volume administer 1,300 04/10/25 13:43 LINER MAN.SOBR (ml) Colloids volume administered ( ml) Blood Product volume administered (ml) Total IV fluid infused 1,300 04/10/25 13:43 LINER [email or web address] Anesthesia Postop Eval I: Summary Notes Anesthesia Complication No 04/10/25 13:43 LINER [email or web address] Anesthesia Complication Comment: Post-operative progress note Anesthesia: Postop Eval II Evaluation Mental status: Awake Pain Level: 3 nausea: No Vomiting: No
[2025-04-10] MEDS: oxyCODONE 5 MG Tablet PO (15:51)
== END 2025-04-10 17:53 | disposition home or self-care (01) ==
LOC: SDC 08:59 → AC 09:00
PROVIDERS: PCP Student in an Organized Health Care Education/Training Program; Referring Provider Orthopaedic Surgery; Visit Provider Orthopaedic Surgery
PROC: 0SRC0JZ Replacement of Right Knee Joint with Synthetic Substitute, Open Approach (ICD-10-PCS; CPT 27447; principal; 2025-04-10 10:30)
DX: M17.0 Bilateral primary osteoarthritis of knee (principal); R29.898 Other symptoms and signs involving the musculoskeletal system; M54.16 Radiculopathy, lumbar region
CPT/HCPCS: 27447; S2900; 01402; 73560; 82962; 88304; 88311; 93005; 97161; C1776; J2405; J3475

== ENCOUNTER → 2025-05-02 | Outpatient (CLI) | payer OTHER, SELFPAY ==
[2025-05-02 14:35] LABS: Hemoglobin 12.9 g/dL (13.0-16.5); Mean Corp Hgb Conc 33.1 g/dL (32-36); Mean Corpuscular Hgb 30.1 pg (27.0-32.0); Mean Corpuscular Volume 91.1 fL (80-94); Mean Platelet Vol. 10.7 fl (6.2-12.0); Platelet Count 408 K/mm3 (150-450); RBC Distribution Width CV 12.7 % (11.6-14.6); RBC Distribution Width SD 41.6 fl (35.1-43.9); Red Blood Count 4.28 M/mm3 (4.6-6.2); White Blood Count 5.8 K/mm3 (4.4-11.0)
[2025-05-02 15:10] LABS: Hemoglobin A1c 5.4 % (<=5.6)
[2025-05-02 15:24] LABS: ALB/GLOB Ratio 1.4 RATIO (0.9-2.4); AST(SGOT) 20 U/L (<=37); Alanine Aminotransfer ALT/SGPT 14 U/L (<=46); Albumin, Serum 4.3 g/dL (3.5-5.0); Alkaline Phosphatase 104 U/L (40-129); Anion Gap 13 (5-15); BUN 13 mg/dL (4-19); BUN/Creat Ratio 14.6 RATIO (10-20); Calcium,Total 9.5 mg/dL (7.6-11.0); Carbon Dioxide 22.8 mmol/L (21.0-32.0); Chloride 103 mmol/L (98-108); Cholesterol 161 mg/dL (<=200); Creatinine, Serum 0.91 mg/dL (0.70-1.20); EST Glomerular Filtration Rate 97 (>60); Glucose 90 mg/dL (70-99); High Density Lipoprotein 47 mg/dL; Low Density Lipoprotein Calc. 96 mg/dL; PSA,Total - Annual Screen 5.51 ng/mL (0.02-4.00); Protein, Total 7.2 g/dL (5.9-8.4); Sodium Level 138 mmol/L (133-145); Total Bilirubin 0.59 mg/dL (0.00-1.30); Triglycerides 90 mg/dL; Very Low Density Lipoprotein 18 mg/dL (5-40)
[2025-05-08 11:08] LABS: Testosterone, % Free 1.86 % (1.50-4.20); Testosterone, Free 6.62 ng/dL (5.00-21.00); Testosterone, Total 356 ng/dL (264-916)
== END | disposition home or self-care (01) ==
LOC: LAB 13:38
PROVIDERS: PCP Student in an Organized Health Care Education/Training Program; Referring Provider Student in an Organized Health Care Education/Training Program; Visit Provider Student in an Organized Health Care Education/Training Program
DX: Z12.5 Encounter for screening for malignant neoplasm of prostate (principal); Z13.6 Encounter for screening for cardiovascular disorders; E55.9 Vitamin D deficiency, unspecified; R68.82 Decreased libido
CPT/HCPCS: 36415; 80053; 80061; 82306; 83036; 84153; 84402; 84403; 85027; G0103

== ENCOUNTER 2025-05-17 13:30 | Outpatient (RCR) | payer OTHER, SELFPAY ==
--- NOTE | 2025-04-13 12:58 | HP.PTEVAL_ITS ---
Patient's Visit Information Visit Information Visit Information: ROXI MORELAND Jr. is a 59 year old M referred to Physical Therapy by Dr. Ariel Antonio DO with a diagnosis of R TKA 04/10/25. Date of Evaluation: 04/13/25 Physical Therapist: Enzo Carr, PT, ATC Visit Plan Frequency: 2-3x /Week Duration: 6-8 weeks Plan: R knee PROM/mobs, stretching and strengthening, balance and proprio, gait training, stair negotiation, nustep, and HEP Subjective Subjective: DOS: 04/10/25. Pt notes he had a R TKA performed at that time. pt reports he is in a lot more pain than he expected. Pt reports he has tried to sleep in his bed, but has significant difficulty at this time secondary to pain. Pt reports he has some tingling and numbness in R LE along the lateral aspect of R LE. 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 Pt reports he is using a walker At this time, but notes he used no AD prior to surgery. Pt reports he has stairs at home, and has to negotiate them one step at a time. Pt reports he is limited with all house and yard duties at this time secondary to pain. 8/10 pain while sitting here at rest, 10/10 pain at worst Pain R TKA: Pain Intensity (Out of 10): 8 Pain Intensity Range: 10 Objective Objective: MMT: L knee flex= 34, ext= 45 #F; R knee flex= 4, ext= 0 #F ROM: L knee 0-115, R knee 0-20-80 degrees TUG 37 seconds Gait: Pt is able to ambulate 140 feet with walker. Very slow cadance Balance/Special Test Scores Lower Extremity Functional Score: 11 Goals Goal 1:: Decrease R knee pain x 50% to aid with sleep Goal Time Frame: 6-8 Weeks Goal 2:: Increase R knee ROM x 30 degrees to aid with restoring a more normalized gait pattern Goal Time Frame: 6-8 Weeks Goal 3:: Increase R knee strength to equal 90% of L knee strength to aid with RTW Goal Time Frame: 6-8 Weeks Goal 4:: I with HEP Goal Time Frame: 6-8 Weeks Rehabilitation Potential Physical Therapy Diagnosis: Pt has R knee pain, weakness, and limited ROM secondary to R TKA Rehabilitation Potential: Good Anticipated Interventions Patient/Client Instruction: Educate patient on: Condition and Plan of Care For the Purpose of:: To improve self management Therapeutic Exercise to Include: Strength training, Endurance training, Balance training, Flexibilty training, Gait and locomotor training, Passive ROM, Active ROM and Dynamic Lumbar Stabilization For the Purpose of:: To decrease pain, To increase ROM and To improve muscle performance and motor function Cryotherapy (ice pack, ice massage): Yes For the Purpose of:: To decrease pain Text: Thank you for the opportunity to evaluate your patient. For Medicare and Medicare HMO plans, please review the plan of care and approve it. It will need to be FAXED BACK to us at [phone] for Medicare purposes. For Medicare only, by signing this I certify the plan of care. Please let me know if there are questions or concerns regarding this plan of care. Physician Signature: __Date:
--- NOTE | 2025-07-17 08:58 | HP.PT.NRP ---
Patient Information Patient Information: ROXI MORELAND Jr. was seen in my office for initial evaluation on 04/13/25. The following Plan of Care was established for this patient: POC Established Initial Frequency: 2-3x /Week Initial Duration: 6-8 weeks Anticipated Interventions Patient/Client Instruction: Educate patient on: Condition and Plan of Care For the Purpose of:: To improve self management Therapeutic Exercise to Include: Strength training, Endurance training, Balance training, Flexibilty training, Gait and locomotor training, Passive ROM, Active ROM and Dynamic Lumbar Stabilization For the Purpose of:: To decrease pain, To increase ROM and To improve muscle performance and motor function Cryotherapy (ice pack, ice massage): Yes For the Purpose of:: To decrease pain Last Seen Last Seen: This patient was last seen in our office . Pertinent comments regarding their Physical therapy will appear below: Pt has not returned in greater than 30 days and is discontinued at this time. At this point I will be discontinuing this patient from physical therapy. I would be happy to see this patient again in the future if found appropriate by the physician. Thank you! Enzo Carr, PT, ATC Balance/Gait/Functional tests Balance/Special Test Scores Lower Extremity Functional Score: 11
== END 2025-05-17 19:00 | disposition home or self-care (01) ==
LOC: PT 13:30
PROVIDERS: PCP Student in an Organized Health Care Education/Training Program; Visit Provider Orthopaedic Surgery
DX: M17.11 Unilateral primary osteoarthritis, right knee (principal); Z96.651 Presence of right artificial knee joint
CPT/HCPCS: 97110; 97140; 97161; 97530

== ENCOUNTER → 2025-05-23 | Outpatient (CLI) | payer OTHER, SELFPAY ==
--- NOTE | 2025-05-23 10:41 | RAD_ITS ---
PROCEDURE: KNEE 3 VIEWS 05/23/2025 REASON FOR EXAM: S/P TKA TECHNIQUE: KNEE 3 VIEWS COMPARISON: 03/14/2025. FINDINGS: Status post right knee total arthroplasty. No evidence of acute complication. No knee joint effusion. No evidence of acute fracture. RAD/Knee 3 Views IMPRESSION: Intact right knee arthroplasty. Reading Location: [place] [id number]
--- OUTSIDE RECORDS SUMMARY | 2025-05-23 21:40 | XMS RPT_ITS | CCD ---
Author Organization [facility] Care Team Providers Care Rounder And Backer Name Role Phone Amber Holman MD Primary Care Provider [phone] AMBER HOLMAN Primary Care Unavailable ROBINA POLLARD Attending Unavailable AMBER HOLMAN Primary Care Unavailable AMBER HOLMAN Attending Unavailable AMBER HOLMAN Primary Care Unavailable CLAUDETTE STARK Attending Unavailable CLAUDETTE STARK Admitting Unavailable AMBER HOLMAN Primary Care Unavailable AMBER HOLMAN Primary Care Unavailable ROBINA POLLARD Referring Unavailable Dr. Amber Holman Primary Care Unava ilable Rl, Dr. David George Attending Unavail able Amber Holman MD Primary Care Provider CHRISTAL MIKE Attending Unavailable AMBER HOLMAN Primary Care Unavailab Dr. Amber Fabian MD Primary Care Provider Dr. Amber Holman MD Referring Provider Dr. Ariel Antonio DO Attending Provider Dr. Ariel Antonio DO Referring Provider Dr. Aren Jaimes DO Primary Care Provider [phone] Dr. Aren Jaimes DO Primary Care Provider [phone] Dr. Aren Madison MD Attending Provider Dr. Ariel Antonio DO Other Provider Yolanda Palomino Attending Provider Dr. Aren Jaimes DO Attending Provider Dr. Aren Jaimes DO Referring Provider NAZANIN URIARTE~[id number], NAZANIN JAVIER Attending Unavailable AMBER MCFARLANE~[id number] ROBERTA Prim eddie Care Unavailable NAZANIN URIARTE~[id number], NAZANIN JAVIER Admitting Unavailable NAZANIN URIARTE~[id number], NAZANIN JAVIER Attending Unavailable NAZANIN URIARTE~[id number], NAZANIN JAVIER Admitting Unavailable AMBER MCFARLANE~[id number] ROBERTA Prim eddie Care Unavailable NAZANIN URIARTE~[id number], NAZANIN JAVIER Admitting Unavailable AA NO PCP, NO PCP Primary Care Unavailable NAZANIN URIARTE~[id number], NAZANIN JAVIER Attending Unavailable NAZANIN URIARTE~[id number], NAZANIN JAVIER Admitting Unavailable ROBERTA AMBER CLARK~[id number] ROBERTA Prim eddie Care Unavailable NAZANIN URIARTE~[id number], NAZANIN JAVIER Attending Unavailable BHAVANI URIARTE~[id number], BHAVANI Ramirez Admittin g Unavailable BHAVANI URIARTE~[id number], BHAVANI Ramirez Attendin g Unavailable ROBERTA AMBER AMBER~[id number] ROBERTA Prim eddie Care Unavailable NAZANIN URIARTE~[id number], NAZANIN JAVIER Attending Unavailable ROBERTA AMBER AMBER~[id number] ROBERTA Prim eddie Care Unavailable NAZANIN URIARTE~[id number], NAZANIN JAVIER Admitting Unavailable Ariel Antonio Attending Unavailable Ariel Antonio Referring Unavailable Halko, Aren Primary Care Unavailable Ariel Antonio Referring Unavailable Ariel Antonio Attending Unavailable Manda Amber Primary Care Unavailable Halsterling, Aren Primary Care Unavailable Aren Jaimes Attending Unavailable Fiona, Aren Referring Unavailable Ariel Antonio Attending Unavailable Ariel Antonio Referring Unavailable Halko, Aren Primary Care Unavailable Ariel Antonio Attending Unavailable Halko, Aren Primary Care Unavailable Ariel Antonio Attending Unavailable Manda Amber Primary Care Unavailable Holman, Amber Referring Unavailable Ariel Antonio Attending Unavailable Holman, Amber Primary Care Unavailable Holman, Amber Referring Unavailable Aren Madison Attending Unavailable Ariel Antonio Referring Unavailable Halko, Aren Primary Care Unavailable Ariel Antonio Referring Unavailable Ariel Antonio Consulting Unavailable Ariel Antonio Attending Unavailable Halko, Aren Primary Care Unavailable Halko, Aren Primary Care Unavailable Holman, Amber Referring Unavailable Yolanda Palomo Attending Unavailable Ariel Antonio Attending Unavailable Holman, Amber Referring Unavailable Halko, Aren Primary Care Unavailable Ariel Antonio Referring Unavailable Borruso, Ariel Attending Unavailable Aren Jaimes Primary Care Unavailable Ariel Antonio Attending Unavailable Ariel Antonio Referring Unavailable Amber Holman Primary Care Unavailable Allergies Allergy Classification Reported Allergen(s) Allergy Type Date of Onset Reaction(s) Facility Penicillins (antibiotic) (1 source) Penicillins Drug Allergy 6 [facility] (3 sources) Penicillins; Translations: [PENICILLINS] Propensity to adverse reactions to drug 6 [facility] (8 sources) Penicillins Drug Allergy 6 [facility] (1 source) Penicillins Propensity to adverse reactions 4 [facility] (6 sources) Penicillins Allergy to substance 5 [facility] (1 source) Penicillin Drug Allergy [facility] (1 source) Penicillins Drug allergy (disorder) 5 [facility] Repository Medications Current Medications Medication Drug Class(es) Dates Sig (Normalized) Sig (Original) acetaminophen 500 mg oral tablet (14 sources) Start: 04-10-2025 take 2 tablets by mouth every six hours Acetaminophen 500 mg tablet Active 1000 mg PO EVERY 6 HOURS 100 0 April 10, 2025 12:00am Start: 03-27-2025 End: 04-10-2025 take 2 capsules by mouth every six hours as needed for pain Acetaminophen 500 mg capsule Discontinued 1000 mg PO EVERY 6 HOURS as needed for pain March 27, 2025 12:00am April 10, 2025 1:25pm take 1 tablet by adan th every six hours as needed for pain acetaminophen (TYLENOL) 500 MG tablet Take 500 mg by mouth every 6 hours as needed for Pain 0 Active azelastine hydrochloride 0.137 mg/actuat metered dose nasal spray (2 sources) Histamine-1 Receptor Antagonist Start: 08-13-2020 take 1 spray(s) nasal route twice daily azelastine (ASTELIN) 0.1 % nasal spray 1 spray by Nasal route 2 times daily Use in each nostril as directed 2 Bottle 1 08/13/2020 Active BiPAP Machine MISC (3 sources) BiPAP Machine [place] Indications: MARY - Auto Pap - Settings Unkown by Does not apply route Indications: MARY - Auto Pap - Settings Unkown 0 Active cholecalciferol 0.025 mg oral capsule (6 sources) Vitamin D Start: 03-27-2025 take 1 capsule by mouth once daily Cholecalciferol (Vitamin D3) (Vitamin D3) 25 mcg (1,000 unit) capsule Active 25 ug PO DAILY March 27, 2025 12:00am cyclobenzaprine hydrochloride 10 mg oral tablet (2 sources) Muscle Relaxant Start: 04-30-2025 take 1 tablet by mouth at bedtime as needed for muscle spasms Cyclobenzaprine 10 mg tablet Active 10 mg PO BEDTIME as needed for muscle spasm 10 0 April 30, 2025 12:00am Do not drive, operate machinery or perform safety sensitive work with in 8 hrs of dosing. ergocalciferol 1.25 mg oral capsule (3 sources) Provitamin D2 Compound Start: 10-18-2018 take 1 capsule by mouth every week vitamin D (ERGOCALCIFEROL) 48409 units CAPS capsule Take 1 capsule by mouth once a week 50,000 IU weekly, or as directed by physician 12 capsule 0 10/18/2018 Active fexofenadine hydrochloride 180 mg oral tablet (1 source) Histamine-1 Receptor Antagonist take 1 tablet by mouth once daily as needed fexofenadine (MICHEAL ALLERGY) 180 MG tablet Indications: prn Take 180 mg by mouth daily Indications: prn 0 Active Loratadine / Pseudoephedrine (1 source) alpha-Adrenergic Agonist Loratadine-Pseudoeph edrine (CLARITIN-D 12 HOUR PO) Indications: prn Take by mouth Indications: prn 0 Active naproxen 250 mg oral tablet (8 sources) Nonsteroidal Anti-inflammatory Drug naproxen (Naprosyn) 250 MG tablet Take by mouth. 0 Active take 200 mg by mouth once daily as needed for pain NAPROXEN PO Indications: Pain PRN Take 2 00 mg by mouth daily as needed Indications: Pain PRN 0 Active omeprazole 20 mg delayed release oral capsule (3 sources) Proton Pump Inhibitor Start: 04-25-2019 take 1 capsule by mouth once daily omeprazole (PRILOSEC) 20 MG delayed release capsule Take 1 capsule by mouth daily 30 capsule 3 04/25/2019 Active pregabalin 150 mg oral capsule (6 sources) Start: 03-14-2025 take 1 capsule by mouth three times daily Pregabalin (Lyrica) 150 mg capsule Active 150 mg PO THREE TIMES A DAY March 14, 2025 12:00am rizatriptan 10 mg disintegrating oral tablet (9 sources) Serotonin-1b and Serotonin-1d Receptor Agonist Start: 02-12-2023 End: 03-14-2023 rizatriptan CASINO OPERATIONS SUPERVISOR (Maxalt-CASINO OPERATIONS SUPERVISOR) 10 MG disintegrating tablet Take 1 tablet (10 mg) by mouth Once as needed for migraine. May repeat in 2 hours if unresolved. Do not exceed 30 mg in 24 hours. 9 tablet 1 02/12/2023 Active tadalafil 10 mg oral tablet (5 sources) Phosphodiesterase 5 Inhibitor Start: 08-13-2020 take 1 tablet by mouth once daily as needed tadalafil (CIALIS) 10 MG tablet Take 1 tablet by mouth daily as needed for Erectile Dysfunction 90 tablet 1 08/13/2020 Active Start: 12-05-2019 take 1 tablet by adan th once daily tadalafil (CIALIS) 5 MG tablet Take 1 tablet by mouth daily 90 tablet 1 12/05/2019 Active Completed/Discontinued Medications Medication Drug Class(es) Dates Sig (Normalized) Sig (Original) acetaminophen 325 mg / HYDROcodone bitartrate 5 mg oral tablet (6 sources) Opioid Agonist Start: 03-14-2025 End: 04-10-2025 Hydrocodone-Acetamin ophen 5-325 mg tablet Discontinued 1 {tbl} PO TWICE A DAY as needed for pain March 14, 2025 12:00am April 10, 2025 1:25pm apixaban 2.5 mg oral tablet (5 sources) Factor Xa Inhibitor Start: 04-10-2025 End: 04-25-2025 take 1 tablet by mouth twice daily in the morning Apixaban (Eliquis) 2.5 mg tablet Discontinued 2.5 mg PO TWICE A DAY 28 April 10, 2025 12:00am April 25, 2025 10:41am Begin morning after surgery. calcium chloride 0.0014 meq/ml / potassium chloride 0.004 meq/ml / sodium chloride 0.103 meq/ml / sodium lactate 0.028 meq/ml injectable solution (2 sources) Start: 03-30-2023 End: 03-30-2023 lactated Ringer's (LR) infusion cephalexin 500 mg oral capsule (5 sources) Cephalosporin Antibacterial Start: 04-10-2025 End: 04-25-2025 Cephalexin 500 mg capsule Discontinued 1000 mg PO Q8H 4 0 April 10, 2025 12:00am April 25, 2025 10:41am Take 2 tabs before you go to bed and 2 tabs after 5 AM morning after surgery when you wake up diphenhydrAMINE hydrochloride 25 mg oral tablet (6 sources) Histamine-1 Receptor Antagonist Start: 04-08-2017 End: 12-14-2019 take 1 tablet by mouth once daily as needed Diphenhydramine Hcl 25 MG tablet Discontinued 25 mg PO DAILY NEEDED as needed for Allergies April 08, 2017 12:00am December 14, 2019 2:55pm ibuprofen 600 mg oral tablet (9 sources) Nonsteroidal Anti-inflammatory Drug Start: 12-14-2016 End: 03-27-2025 Ibuprofen 600 MG tablet Discontinued 600 mg PO NEEDED as needed for Pain December 14, 2016 1:00am March 27, 2025 9:14am take 1 tablet by adan th every six hours as needed for pain ibuprofen (ADVIL;MOTRIN) 200 MG tablet T barbara 200 mg by mouth every 6 hours as needed for Pain 0 Active ibuprofen (ADVIL ;MOTRIN) 100 MG/5ML suspension Indications: prn Take by mouth every 4 hours as needed for Fever Indications: prn 0 Active 10 ml lidocaine hydrochloride 10 mg/ml injection (4 sources) Antiarrhythmic, Amide Local Anesthetic Start: 02-26-2023 End: 02-26-2023 lidocaine (Xylocaine) 1 % injection 8 mL Start: 02-26-2023 End: 02-26-2023 lidocaine (Xylocaine) 1 % in jection 8 mL Start: 02-26-2023 End: 02-26-2023 lidocaine (Xylocaine) 1 % in jection 8 mL Start: 02-26-2023 End: 02-26-2023 lidocaine (Xylocaine) 1 % in jection 8 mL meloxicam 15 mg oral tablet (11 sources) Nonsteroidal Anti-inflammatory Drug Start: 03-14-2025 take 1 tablet by mouth once daily Meloxicam 15 mg tablet Active 15 mg PO daily March 14, 2025 12:00am On Hold: May resume after completion of blood thinner if needed Start: 03-15-2023 End: 03-14-2024 take 1 tablet by mouth once daily meloxicam (Mobic) 15 MG tablet Indications: Pain in both knees, unspecified chronicity , Primary osteoarthritis of both knees Take 1 tablet (15 mg) by mouth daily. 30 tablet 11 03/15/2023 03/14/2024 Active oxyCODONE hydrochloride 5 mg oral tablet (5 sources) Opioid Agonist Start: 04-10-2025 End: 04-25-2025 take 5-10 mg by mouth every four hours as needed for pain Oxycodone 5 mg tablet Discontinued 5 - 10 mg PO Q4H as needed for pain 60 7 0 April 10, 2025 April 25, 2025 10:41am Other acute postprocedural pain Other acute postprocedural pain 5 ml sodium chloride 9 mg/ml injection (6 sources) Start: 03-30-2023 End: 03-30-2023 sodium chloride 0.9% (NS) flush 10 mL Start: 03-30-2023 End: 03-30-2023 sodium chloride 0.9% (NS) fl ush 10 mL Start: 03-30-2023 End: 03-30-2023 sodium chloride 0.9 % infusi on Start: 03-30-2023 End: 03-30-2023 sodium chloride 0.9% (NS) fl ush 10 mL 1 ml triamcinolone acetonide 40 mg/ml prefilled syringe (4 sources) Corticosteroid Start: 02-26-2023 End: 02-26-2023 triamcinolone acetonide (Kenalog-40) injection 160 mg Start: 02-26-2023 End: 02-26-2023 triamcinolone acetonide (Jorge alog-40) injection 160 mg Start: 02-26-2023 End: 02-26-2023 triamcinolone acetonide (Jorge alog-40) injection 160 mg Start: 02-26-2023 End: 02-26-2023 triamcinolone acetonide (Jorge alog-40) injection 160 mg Problems Active Problems Problem Classification Problem Date Documented Da te Episodic/Chronic Fracture of lower limb (9 sources) Fracture of fibula; Translations: [Stress fracture, right tibia, subsequent encounter for fracture with delayed healing] Onset: 02-26-2023 Episodic Gastritis and duodenitis (12 sources) Chronic superficial gastritis; Translations: [Chronic superficial gastritis without bleeding] Onset: 04-25-2019 04-25-2019 Chronic Osteoarthritis (20 sources) Osteoarthritis of right knee joint; Translations: [Unilateral primary osteoarthritis, right knee] Onset: 12-05-2021 12-05-2021 Chronic Other aftercare (1 source) Other care home (current) drug therapy; Translations: [OTH METAL FILER CURRENT DRUG THERAPY] Onset: 03-22-2025 Episodic Other aftercare (1 source) 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) use of opiate analgesic; Translations: [JAIL CURRNT USE OPIATE ANALGES] Onset: 03-22-2025 Episodic Other aftercare (1 source) 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) use of non-steroidal anti-inflammatories (NSAID); Translations: [JAIL USE NSAID] Onset: 03-22-2025 Episodic Other bone disease and musculoskeletal deformities (20 sources) Segmental and somatic dysfunction; Translations: [Segmental and somatic dysfunction of abdomen and other regions] Onset: 02-26-2023 02-26-2023 Episodic Other connective tissue disease (5 sources) History of total knee arthroplasty; Translations: [Presence of unspecified artificial knee joint] 04-25-2025 Chronic Other connective tissue disease (2 sources) Presence of right artificial knee joint; Translations: [Presence of right artificial knee joint] Onset: 05-23-2025 Chronic Other connective tissue disease (1 source) Pain of right lower leg; Translations: [Pain in right lower leg] 05-11-2025 Episodic Other connective tissue disease (1 source) Myalgia, other site; Translations: [MYALGIA OTHER SITE] Onset: 03-22-2025 Episodic Other connective tissue disease (1 source) Arthrodesis status; Translations: [ARTHRODESIS STATUS] Onset: 03-22-2025 Episodic Other nervous system disorders (5 sources) Acute postoperative pain; Translations: [Other acute postprocedural pain] 04-10-2025 Episodic Other non-traumatic joint disorders (19 sources) Pain in right knee; Translations: [Pain in joint, lower leg] Onset: 03-15-2023 Episodic Other non-traumatic joint disorders (3 sources) Pain in left knee; Translations: [Pain in left knee] Onset: 03-15-2023 Episodic Other non-traumatic joint disorders (2 sources) Pain in left elbow; Translations: [Pain in left elbow] Onset: 08-11-2023 Episodic Other nutritional; endocrine; and metabolic disorders (2 sources) Obesity; Translations: [Morbid (severe) obesity due to excess calories] 04-25-2019 Chronic Other nutritional; endocrine; and metabolic disorders (10 sources) Severe obesity; Translations: [Morbid (severe) obesity due to excess calories] Onset: 04-25-2019 04-25-2019 Chronic Other screening for suspected conditions (not mental disorders or infectious disease) (12 sources) Patient encounter status; Translations: [Encounter for screening for malignant neoplasm of colon] Onset: 03-12-2023 Episodic Residual codes; unclassified (12 sources) Obstructive sleep apnea syndrome; Translations: [Obstructive sleep apnea (adult) (pediatric)] Onset: 01-31-2019 01-31-2019 Chronic Spondylosis; intervertebral disc disorders; other back problems (15 sources) Degeneration of lumbar intervertebral disc; Translations: [Other intervertebral disc degeneration, lumbar region] Onset: 02-26-2023 02-26-2023 Chronic Comment on above: Previous lumbar fusi on at L2-L3. Spondylosis; intervertebral disc disorders; other back problems (17 sources) Backache; Translations: [Dorsalgia, unspecified] Onset: 01-31-2019 01-31-2019 Episodic Substance-related disorders (12 sources) Narcotic drug user; Translations: [Opioid use, unspecified, uncomplicated] 03-14-2025 Episodic Unclassified (13 sources) Osteoarthritis of right knee; Translations: [M17.11 - Unilateral primary osteoarthritis, right knee] Unclassified (1 source) LOW BACK PAIN, UNSPECIFIED; Translations: [LOW BACK PAIN, UNSPECIFIED] Onset: 03-22-2025 Past or Other Problems Problem Classification Problem Date Documented Da te Episodic/Chronic Coma; stupor; and brain damage (12 sources) Daytime somnolence; Translations: [Somnolence] Onset: 01-31-2019 01-31-2019 Episodic Esophageal disorders (12 sources) Esophagitis; Translations: [Esophagitis] Onset: 04-25-2019 04-25-2019 Episodic Malaise and fatigue (12 sources) Fatigue; Translations: [Other fatigue] Onset: 01-31-2019 01-31-2019 Episodic Other lower respiratory disease (12 sources) Dyspnea on exertion; Translations: [Shortness of breath] Onset: 01-31-2019 01-31-2019 Episodic Other non-traumatic joint disorders (11 sources) Pain in unspecified knee; Translations: [Pain in joint, lower leg] Onset: 01-31-2019 01-31-2019 Episodic Other non-traumatic joint disorders (12 sources) Hip pain; Translations: [Pain in unspecified hip] Onset: 01-31-2019 01-31-2019 Episodic Other non-traumatic joint disorders (1 source) Pain in right hip joint Episodic Other non-traumatic joint disorders (1 source) Knee pain 01-31-2019 Episodic Results Test Name Value Interpretation Reference Range Facility Knee 3 Viewson 05-23-2025 Knee 3 Views [facility] Services [address] [place] [address] Knee 3 Views MR#: [id number] Acct: [id number] Name: ROXI MORELAND Jr. Rep #: [id number] : 1965 M 59 From: Pa Lobo MD PCP: Dr. Aren Jaimes DO Status: REG CLI Study: Knee 3 Views Date of Exam: 05/23/25 Exam# [id number] Ordering Dr: Ariel Antonio DO PROCEDURE: KNEE 3 VIEWS 05/23/2025 REASON FOR EXAM: S/P TKA TECHNIQUE: KNEE 3 VIEWS COMPARISON: 03/14/2025. FINDINGS: Status post right knee total arthroplasty. No evidence of acute complication. No knee joint effusion. No evidence of acute fracture. RAD/Knee 3 Views IMPRESSION: Intact right knee arthroplasty. Reading Location: [id number] CC: Dr. Ariel Antonio DO; Dr. 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 Rep #: [id number] : 1965 Provider: Dr. Ariel gamboa DO Age/Sex: 59/M Location: [facility].CARMELINA Status: Signed Intake Vital Signs 03/14/25 10:39 04/10/25 09:28 05/23/25 10:55 Height 5 ft 10 in 5 ft 10 in 5 ft 10 in Intake Visit Reasons: right knee Chief Complaint: Right knee 6 week post op Accompanied by: Self Is patient in pain?: Yes Pain scale (1-10): 4 Allergies Penicillins Allergy (Verified 05/23/25 10:58) Rash Medications ???Medication ???Instructions ???Recorded ???Confirmed ???Type meloxicam 15 mg tablet 15 mg PO QDAY 03/14/25 05/23/25 Hi story Held on 04/10/25. Instructions: May resume after completion of blood thinner if needed pregabalin 150 mg capsule (Lyrica) 150 mg PO TID 03/14/25 05/23/25 History cholecalciferol (vitamin D3) 25 25 mcg PO DAILY 03/27/25 05/23/25 History mcg (1,000 unit) capsule (Vitamin D3) acetaminophen 500 mg tablet 1,000 mg (2 x 500 mg) PO Q6H #100 04/10/25 05/23/25 Rx tabs cyclobenzaprine 10 mg tablet 10 mg PO HS PRN muscle spasm #10 0 04/30/25 05/23/25 Rx tabs cephalexin 500 mg capsule 2,000 mg (4 x 500 mg) PO ONCE #4 0 05/23/25 05/23/25 Rx caps Have you fallen in the past year?: No PFSH Medical History Wears glasses Wears contact lenses Alcohol use Kidney stones Back pain Injury of back Injury of head and neck Non-smoker Sleep apnea History of edema History of pain when walking History of echocardiogram History of stress test Osteoarthritis Chronic headaches Cataracts, bilateral Arthritis Surgical History Hx of elbow surgery History of rhinoplasty Hx of knee surgery Hx of appendectomy History of cataract surgery History of lumbar fusion Family History Other Cancer Melanoma Social History Smoking Status: Never smoker alcohol intake: current alcohol intake frequency: holidays/special occasions only substance use type: does not use what type of physical activity do you participate in: aerobics and weight training frequency: 1-2 times per week HPI right knee Details: This documentation accurately reflects the service provided and the decisions made by me, Dr. Ariel Antonio, DO 05/23/25 0808. Part of today???s visit was documented by Ary Luque MA, acting as scribe. ROXI MORELAND is a 59 year old M here today for 6 weeks postop right total knee arthroplasty DOS 04/10/2025. Patient states that his right knee has been like a roller coaster. He has bee feeling sharp pain lateral from the knee cap. Patient stated when he lifted his right knee he felt a severe pop in the knee lateral to the fibula head. He states when the popping happened his knee swelled. Patient has been doing physical therapy. He has been doing very well, he's not having any pain bedsides soreness with physical therapy. Patient states that he is still not able to go up and down steps, he can tell it's quad weakness. Ortho Exam General General: Yes no acute distress and Yes well groomed Neurologic: Yes alert and Yes oriented x3 Psychologic: Yes reasonable and appropriate Right Knee Date of Surgery: 04/10/25 Skin/Wound: No erythema, No ecchymosis and Yes swelling Homans Sign: No Knee ROM: Yes ROM-Extension -20 to 0 (-5) and Yes ROM-Flexion 0-140 (120) Examination: Yes Illiotibial band tenderness Stability: NML: Valgus 0, NML: Valgus 30, NML: Varus 0 and NML: Varus 30 Patella Translation: 1 KNEE: joint effusion He does have some tenderness over his fibular head Left Knee Patella Translation: 1 Office Procedures Ortho Injections Injections Yes Knee Left Is this a patient provided medication?: No Details: Obtained consent for injection. Under sterile conditions, injected the patients left knee with 1.5cc bupivacaine 1.5cc lidocaine 1cc depo medrol. The patient tolerated the injection well without any noted complication. Patient should call our office if redness develops, pain worsens or if they have any concerns. Office Meds Depo-Medrol 40 mg/mL suspension for injection Performing Provider: Ariel Antonio DO Performing Location: [facility] Administered by: Ariel Antonio DO on 05/23/25 11:28 Dose Route Admin Location Dispensed Lot Number Expiration Date JENNIFER Jluis ufacturer 40 mg intra-articular left knee 1 mL [id number] 02/20/27 5984-9890-85 PHARM ACIA-UPJ (more content not included)... Normal [facility] Testosterone, Total / Freeon 05-08-2025 TESTOSTER,FREE 6.62 ng/dL Normal 5.00-21.00 [facility] Comment on above: Order Comment: N Performed By: #### L 501.9985, L3100.5310, L100.0500, L500.4100, L501.9910, L500.4050, L506.1001 ####[facility] [id number] [place], [place], [id number]) TESTOSTER,TOTAL 356 ng/dL Normal [id number] [facility] Comment on above: Order Comment: N Result Comment: Adul t male reference interval is based on a population of healthy nonobese males (BMI <30) between 19 and 39 years old. Sunil et.al. JCEM 2017,102;[id number]. PMID: [id number]. Performed By: #### L 501.9985, L3100.5310, L100.0500, L500.4100, L501.9910, L500.4050, L506.1001 ####[facility] [address] [place], [place], [id number] TESTOSTERONE,%F 1.86 Normal 1.50-4.20 [facility] Comment on above: Order Comment: N Result Comment: Perf ormed at: [facility] [address] [id number] Learning And Development Assistant: Rob Sotomayor PhD, Phone: [phone] Performed at: [facility] [address] [id number] Learning And Development Assistant: Shana Wakefield MD, Phone: [phone] Performed By: #### L 501.9985, L3100.5310, L100.0500, L500.4100, L501.9910, L500.4050, L506.1001 ####[facility] [address] [place], [address] Anion gap in Serum or Plasma Ordered By: Aren Jaimes on 05-02-2025 Anion gap [Moles/Vol] 13 mmol/L 5-15 [facility] BUN/creatinine ratioOrdered By: Aren Jaimes on 05-02-2025 Urea nitrogen/Creatinine [Mass ratio] 14.6 mg/mg 10-20 [facility] Bilirubin, totalOrdered By: Aren Jaimes on 05-02-2025 Bilirubin [Mass/Vol] 0.59 mg/dL 0.00-1.30 [facility] CBC-Complete Blood Cnt No Di ffon 05-02-2025 Erythrocyte distribution width (RBC) [Ratio] 12.7 % Normal 11.6-14.6 [facility] Comment on above: Performed By: #### L 501.9985, L3100.5310, L100.0500, L500.4100, L501.9910, L500.4050, L506.1001 ####[facility] [address] [place], [address] Hematocrit (Bld) [Volume fraction] 39.0 % Low 40-54 [facility] Comment on above: Performed By: #### L 501.9985, L3100.5310, L100.0500, L500.4100, L501.9910, L500.4050, L506.1001 ####[facility] [address] [place], [address] Hemoglobin (Bld) [Mass/Vol] 12.9 g/dL Low 13.0-16.5 [facility] Comment on above: Performed By: #### L 501.9985, L3100.5310, L100.0500, L500.4100, L501.9910, L500.4050, L506.1001 ####[facility] [address] [place], [address] MCH (RBC) [Entitic mass] 30.1 pg Normal 27.0-32.0 [facility] Comment on above: Performed By: #### L 501.9985, L3100.5310, L100.0500, L500.4100, L501.9910, L500.4050, L506.1001 ####[facility] [address] [place], [address] MCHC (RBC) [Mass/Vol] 33.1 g/dL Normal 32-36 [facility] Comment on above: Performed By: #### L 501.9985, L3100.5310, L100.0500, L500.4100, L501.9910, L500.4050, L506.1001 ####[facility] [address] [place], [address] MCV (RBC) [Entitic vol] 91.1 fL Normal 80-94 [facility] Comment on above: Performed By: #### L 501.9985, L3100.5310, L100.0500, L500.4100, L501.9910, L500.4050, L506.1001 ####[facility] [address] [place], [address] Platelet mean volume (Bld) [Entitic vol] 10.7 fL Normal 6.2-12.0 [facility] Comment on above: Performed By: #### L 501.9985, L3100.5310, L100.0500, L500.4100, L501.9910, L500.4050, L506.1001 ####[facility] [address] [place], [address] Platelets (Bld) [#/Vol] 408 10*3/uL Normal 150-450 [facility] Comment on above: Performed By: #### L 501.9985, L3100.5310, L100.0500, L500.4100, L501.9910, L500.4050, L506.1001 ####[facility] [address] [place], [place], [id number] RBC (Bld) [#/Vol] 4.28 10*6/uL Low 4.6-6.2 [facility] Comment on above: Performed By: #### L 501.9985, L3100.5310, L100.0500, L500.4100, L501.9910, L500.4050, L506.1001 ####[facility] [address] [place], [address] RDW SD 41.6 fl Normal 35.1-43.9 [facility] Comment on above: Performed By: #### L 501.9985, L3100.5310, L100.0500, L500.4100, L501.9910, L500.4050, L506.1001 ####[facility] [address] [place], [address] WBC (Bld) [#/Vol] 5.8 10*3/uL Normal 4.4-11.0 [facility] Comment on above: Performed By: #### L 501.9985, L3100.5310, L100.0500, L500.4100, L501.9910, L500.4050, L506.1001 ####[facility] [address] [place], [address] Calculated very low density lipoprotein (VLDL) cholesterol measurementOrdered By: Aren Jaimes on 05-02-2025 Calculated very low density lipoprotein (VLDL) cholesterol measurement 18 mg/dL 5-40 [facility] Carbon dioxide, total [Moles /volume] in Central venous bloodOrdered By: Aren Jaimes on 05-02-2025 CO2 [Moles/Vol] 22.8 mmol/L 21.0-32.0 [facility] Chloride assayOrdered By: Maritza Jaimes on 05-02-2025 Chloride [Moles/Vol] 103 mmol/L 98-108 [facility] Comprehensive Metabolic Prof ilon 05-02-2025 Albumin [Mass/Vol] 4.3 g/dL Normal 3.5-5.0 [facility] Comment on above: Performed By: #### L 501.9985, L3100.5310, L100.0500, L500.4100, L501.9910, L500.4050, L506.1001 ####[facility] [address] [place], [address] Albumin/Globulin [Mass ratio] 1.4 {ratio} Normal 0.9-2.4 [facility] Comment on above: Performed By: #### L 501.9985, L3100.5310, L100.0500, L500.4100, L501.9910, L500.4050, L506.1001 ####[facility] [address] [place], [address] ALK PHOS 104 U/L Normal 40-129 [facility] Comment on above: Performed By: #### L 501.9985, L3100.5310, L100.0500, L500.4100, L501.9910, L500.4050, L506.1001 ####[facility] [address] [place], [address] ALT [Catalytic activity/Vol] 14 U/L Normal <=46 [facility] Comment on above: Performed By: #### L 501.9985, L3100.5310, L100.0500, L500.4100, L501.9910, L500.4050, L506.1001 ####[facility] [address] [place], [address] AST [Catalytic activity/Vol] 20 U/L Normal <=37 [facility] Comment on above: Performed By: #### L 501.9985, L3100.5310, L100.0500, L500.4100, L501.9910, L500.4050, L506.1001 ####[facility] [address] [place], [address] Bilirubin [Mass/Vol] 0.59 mg/dL Normal 0.00-1.30 [facility] Comment on above: Performed By: #### L 501.9985, L3100.5310, L100.0500, L500.4100, L501.9910, L500.4050, L506.1001 ####[facility] [address] [place], [address] BUN/CRE 14.6 RATIO Normal 10-20 [facility] Comment on above: Performed By: #### L 501.9985, L3100.5310, L100.0500, L500.4100, L501.9910, L500.4050, L506.1001 ####[facility] [address] [place], [address] Calcium [Mass/Vol] 9.5 mg/dL Normal 7.6-11.0 [facility] Comment on above: Performed By: #### L 501.9985, L3100.5310, L100.0500, L500.4100, L501.9910, L500.4050, L506.1001 ####[facility] [address] [place], [address] Chloride [Moles/Vol] 103 mmol/L Normal 98-108 [facility] Comment on above: Performed By: #### L 501.9985, L3100.5310, L100.0500, L500.4100, L501.9910, L500.4050, L506.1001 ####[facility] [address] [place], [address] CO2 [Moles/Vol] 22.8 mmol/L Normal 21.0-32.0 [facility] Comment on above: Performed By: #### L 501.9985, L3100.5310, L100.0500, L500.4100, L501.9910, L500.4050, L506.1001 ####[facility] [address] [place], [place], [phone]) Creatinine [Mass/Vol] 0.91 mg/dL Normal 0.70-1.20 [facility] Comment on above: Performed By: #### L 501.9985, L3100.5310, L100.0500, L500.4100, L501.9910, L500.4050, L506.1001 ####[facility] [address] [place], [place], [phone]) GAP 13 Normal 5-15 [facility] Comment on above: Performed By: #### L 501.9985, L3100.5310, L100.0500, L500.4100, L501.9910, L500.4050, L506.1001 ####[facility] [address] [place], [address]) GFR/1.73 sq M.predicted among non-blacks MDRD (S/P/Bld) [Vol rate/Area] 97 mL/min/{1.73_m2} Normal >60 [facility] Comment on above: Result Comment: mL/m in/1.73m2 CKD-EPI Creatinine Equation (2020) Performed By: #### L 501.9985, L3100.5310, L100.0500, L500.4100, L501.9910, L500.4050, L506.1001 ####[facility] [address] [place], [place], [phone]) Globulin (S) [Mass/Vol] 3.0 g/dL Normal 2.2-4.2 [facility] Comment on above: Performed By: #### L 501.9985, L3100.5310, L100.0500, L500.4100, L501.9910, L500.4050, L506.1001 ####[facility] [address] [place], [address] Glucose [Mass/Vol] 90 mg/dL Normal 70-99 [facility] Comment on above: Performed By: #### L 501.9985, L3100.5310, L100.0500, L500.4100, L501.9910, L500.4050, L506.1001 ####[facility] [address] [place], [address] Potassium [Moles/Vol] 4.0 mmol/L Normal 3.3-5.1 [facility] Comment on above: Performed By: #### L 501.9985, L3100.5310, L100.0500, L500.4100, L501.9910, L500.4050, L506.1001 ####[facility] [address] [place], [address] Sodium [Moles/Vol] 138 mmol/L Normal 133-145 [facility] Comment on above: Performed By: #### L 501.9985, L3100.5310, L100.0500, L500.4100, L501.9910, L500.4050, L506.1001 ####[facility] [address] [place], [address] T PROT 7.2 g/dL Normal 5.9-8.4 [facility] Comment on above: Performed By: #### L 501.9985, L3100.5310, L100.0500, L500.4100, L501.9910, L500.4050, L506.1001 ####[facility] [address] [place], [address] Urea nitrogen [Mass/Vol] 13 mg/dL Normal 4-19 [facility] Comment on above: Performed By: #### L 501.9985, L3100.5310, L100.0500, L500.4100, L501.9910, L500.4050, L506.1001 ####[facility] [address] [place], [address] Erythrocyte distribution wid th ratioOrdered By: Aren Jaimes on 05-02-2025 Erythrocyte distribution width (RBC) [Ratio] 12.7 % 11.6-14.6 [facility] Erythrocyte distribution wid th standard deviationOrdered By: Aren Jaimes on 05-02-2025 Erythrocyte distribution width (RBC) [Ratio] 41.6 fl 35.1-43.9 [facility] Free testosterone percentage Ordered By: Aren Jaimes on 05-02-2025 Testosterone Free/Testosterone.total [Mass fraction] 1.86 % 1.50-4.20 [facility] Comment on above: Performed at: [address] [id number] Director: Rob Sotomayor PhD, Phone: [phone] at: [facility] [address] [id number] Director: Shana Wakefield MD, Phone: [phone] Glomerular filtration rate ( GFR) estimation/1.73 sq m using serum, plasma, or whole bOrdered By: Aren Jaimes on 05-02-2025 GFR/1.73 sq M.predicted among non-blacks MDRD (S/P/Bld) [Vol rate/Area] 97 mL/min/{1.73_m2} >60 [facility] Comment on above: mL/min/1.73m2 CKD-EP I Creatinine Equation (2020) Hematocrit Auto (Bld) [Volum e fraction]Ordered By: Aren Jaimes on 05-02-2025 Hematocrit (Bld) [Volume fraction] 39.0 % Low 40-54 [facility] Hemoglobin A1con 05-02-2025 HbA1c (Bld) [Mass fraction] 5.4 % Normal <=5.6 [facility] Comment on above: Result Comment: Norm al < 5.7 % Prediabetic 5.7 - 6.4 % Diabetic >or= 6.5 % Please note range changes. Performed By: #### L 501.9985, L3100.5310, L100.0500, L500.4100, L501.9910, L500.4050, L506.1001 ####[facility] [address] [place], [place], [id number] Hemoglobin A1c percentageOrd ered By: Aren Jaimes on 05-02-2025 HbA1c (Bld) [Mass fraction] 5.4 % <5.7 [facility] Comment on above: Normal < 5.7 % Predi abetic 5.7 - 6.4 % Diabetic >or= 6.5 % Please note range changes. Hemoglobin measurementOrdere d By: Aren Jaimes on 05-02-2025 Hemoglobin (Bld) [Mass/Vol] 12.9 g/dL Low 13.0-16.5 [facility] LDL calc ser/plasOrdered By: Aren Jaimes on 05-02-2025 Cholesterol in LDL [Mass/Vol] 96 mg/dL [facility] Comment on above: Jrvgeyfkoe=562-054 m g/dL & Higher Hclo=247 mg/dL or greater Laboratory - Chemistry and C hemistry - challengeOrdered By: Aren Jaimes on 05-02-2025 AST [Catalytic activity/Vol] 20 U/L <38 [facility] Lipid Profileon 05-02-2025 CHOL:HDL 3.40 Normal [facility] Comment on above: Performed By: #### L 501.9985, L3100.5310, L100.0500, L500.4100, L501.9910, L500.4050, L506.1001 ####[facility] [address] [place], [address] Cholesterol [Mass/Vol] 161 mg/dL Normal <=200 [facility] Comment on above: Result Comment: Chol esterol level, Desirable <200 mg/dL Borderline high cholesterol 200-239 mg/dL High cholesterol >=240 mg/dL Recommendations of the NCEP Adult Treatment Panel for the following risk-cutoff thresholds for the [place] population. Performed By: #### L 501.9985, L3100.5310, L100.0500, L500.4100, L501.9910, L500.4050, L506.1001 ####[facility] [address] [place], [address] Cholesterol in HDL [Mass/Vol] 47 mg/dL Normal [facility] Comment on above: Result Comment: Sanjana onal Cholesterol Education Program (NCEP) guidelines: <40 mg/dL: Low HDL-cholesterol (major risk factor for CHD) >= 60 mg/dL: High HDL-cholesterol (negative risk factor for CHD) HDL-cholesterol is affected by a number of factors, e.g. smoking, exercise, hormones, sex and age. Performed By: #### L 501.9985, L3100.5310, L100.0500, L500.4100, L501.9910, L500.4050, L506.1001 ####[facility] [address] [place], [address] Cholesterol in LDL [Mass/Vol] 96 mg/dL Normal [facility] Comment on above: Result Comment: Bord igrlic=382-577 mg/dL Higher Sphs=301 mg/dL or greater Performed By: #### L 501.9985, L3100.5310, L100.0500, L500.4100, L501.9910, L500.4050, L506.1001 ####[facility] [address] [place], [address] Cholesterol in VLDL [Mass/Vol] 18 mg/dL Normal 5-40 [facility] Comment on above: Performed By: #### L 501.9985, L3100.5310, L100.0500, L500.4100, L501.9910, L500.4050, L506.1001 ####[facility] [address] [place], [address] Triglyceride [Mass/Vol] 90 mg/dL Normal [facility] Comment on above: Result Comment: The drugs N-Acetylcysteine and Metamizole may falsely depress this assay. Normal range: <150 mg/dL Borderline High: 150-199 mg/dL High: 200-499 mg/dL Very High: >500 mg/dL Performed By: #### L 501.9985, L3100.5310, L100.0500, L500.4100, L501.9910, L500.4050, L506.1001 ####[facility] [address] [place], [place], [id number] MCV (mean corpuscular volume ) determinationOrdered By: Aren Jaimes on 05-02-2025 MCV (RBC) [Entitic vol] 91.1 fL 80-94 [facility] Mean corpuscular hemoglobin (MCH) determinationOrdered By: Aren Jaimes on 05-02-2025 MCH (RBC) [Entitic mass] 30.1 pg 27.0-32.0 [facility] Mean corpuscular hemoglobin concentration (MCHC) determinationOrdered By: Aren Jaimes on 05-02-2025 MCHC (RBC) [Mass/Vol] 33.1 g/dL 32-36 [facility] Mean platelet volume determi nationOrdered By: Aren Jaimes on 05-02-2025 Platelet mean volume (Bld) [Entitic vol] 10.7 fL 6.2-12.0 [facility] PSA,Total - Annual Screenon 05-02-2025 PSA,TOT SCREEN 5.51 ng/mL High 0.02-4.00 [facility] Comment on above: Result Comment: This test was performed using the [employer] tPSA method. Measured values of a patient??sample can vary depending on the testing procedure used. PSA values determined on patient samples by different testing procedures cannot be used interchangeably. If there is a change in PSA assays while monitoring therapy, sequential testing should be performed to confirm baseline values. Performed By: #### L 501.9985, L3100.5310, L100.0500, L500.4100, L501.9910, L500.4050, L506.1001 ####[facility] [address] [place], [place], [id number] Platelet countOrdered By: Maritza Jaimes on 05-02-2025 Platelets (Bld) [#/Vol] 408 10*3/uL 150-450 [facility] Potassium measurement (mass/ volume)Ordered By: Aren Jaimes on 05-02-2025 Potassium (Unsp spec) [Mass/Vol] 4.0 mmol/L 3.3-5.1 [facility] RBC Auto (Bld) [#/Vol]Ordere d By: Aren Jaimes on 05-02-2025 RBC (Bld) [#/Vol] 4.28 10*6/uL Low 4.6-6.2 [facility] Screening total cholesterol/ high density lipoprotein (HDL) cholesterol ratioOrdered By: Aren Jaimes on 05-02-2025 Cholesterol.total/Choles terol in HDL [Mass ratio] 3.40 {ratio} [facility] Serum creatinine measurement (mass/volume)Ordered By: Aren Jaimes on 05-02-2025 Creatinine [Mass/Vol] 0.91 mg/dL 0.70-1.20 [facility] Serum globulin measurementOr dered By: Aren Jaimes on 05-02-2025 Globulin (S) [Mass/Vol] 3.0 g/dL 2.2-4.2 [facility] Serum glucose measurement (m ass/volume)Ordered By: Aren Jaimes on 05-02-2025 Glucose [Mass/Vol] 90 mg/dL 70-99 [facility] Serum or plasma alanine partida otransferase (ALT) measurementOrdered By: rAen Jaimes on 05-02-2025 ALT [Catalytic activity/Vol] 14 U/L <47 [facility] Serum or plasma albumin carley urement (mass/volume)Ordered By: Aren Jaimes on 05-02-2025 Albumin [Mass/Vol] 4.3 g/dL 3.5-5.0 [facility] Serum or plasma albumin/glob ulin mass ratioOrdered By: Aren Jaimes on 05-02-2025 Albumin/Globulin [Mass ratio] 1.4 {ratio} 0.9-2.4 [facility] Serum or plasma alkaline nell sphatase measurementOrdered By: Aren Jaimes on 05-02-2025 ALP [Catalytic activity/Vol] 104 U/L 40-129 [facility] Serum or plasma calcium carley urement (mass/volume)Ordered By: Aren Jaimes on 05-02-2025 Calcium [Mass/Vol] 9.5 mg/dL 7.6-11.0 [facility] Serum or plasma cholesterol in HDL measurement (mass/volume)Ordered By: Aren Jaimes on 05-02-2025 Cholesterol in HDL [Mass/Vol] 47 mg/dL >40 [facility] Comment on above: National Cholesterol Education Program (NCEP) guidelines:<40 mg/dL: Low HDL-cholesterol (major risk factor for CHD)>= 60 mg/dL: High HDL-cholesterol (negative risk factor for CHD)HDL-cholesterol is affected by a number of factors, e.g. smoking, exercise, hormones, sex and age. Serum or plasma cholesterol measurement (mass/volume)Ordered By: Aren Jaimes on 05-02-2025 Cholesterol [Mass/Vol] 161 mg/dL <201 [facility] Comment on above: Cholesterol level, D esirable <200 mg/dLBorderline high cholesterol 200-239 mg/dLHigh cholesterol >=240 mg/dLRecommendations of the NCEP Adult Treatment Panel for the following risk-cutoff thresholds for the [place] population. Serum or plasma free testost erone measurement (mass/volume)Ordered By: Aren Jaimes on 05-02-2025 Testosterone Free [Mass/Vol] 6.62 ng/dL 5.00-21.00 [facility] Serum or plasma urea nitroge n measurement (mass/volume)Ordered By: Aren Jaimes on 05-02-2025 Urea nitrogen [Mass/Vol] 13 mg/dL 4-19 [facility] Sodium levelOrdered By: Alex Jaimes on 05-02-2025 Sodium [Moles/Vol] 138 mmol/L 133-145 [facility] Testosterone, totalOrdered B y: Aren Jaimes on 05-02-2025 Testosterone [Mass/Vol] 356 ng/dL 264-916 [facility] Comment on above: Adult male reference interval is based on a population ofhealthy nonobese males (BMI <30) between 19 and 39 yearsold. Sunil et.al. JCEM 2017,102;2493-8335. PMID:[id number]. Total proteinOrdered By: Jasiel Jaimes on 05-02-2025 Protein [Mass/Vol] 7.2 g/dL 5.9-8.4 [facility] Triglycerides measurementOrd ered By: Aren Jaimes on 05-02-2025 Triglyceride [Mass/Vol] 90 mg/dL <199 [facility] Comment on above: The drugs N-Acetylcy steine and Metamizole may falsely depress this assay. Normal range: <150 mg/dLBorderline High: 150-199 mg/dLHigh: 200-499 mg/dLVery High: >500 mg/dL Vitamin D,25 Hydroxyon 05-02 Vitamin D 25-OH 29.0 ng/mL Low 30-100 [facility] Comment on above: Result Comment: Clover min D Status Deficiency: <20 ng/mL (50nmol/L) Insufficiency: 20-30 ng/mL (50-75 nmol/L) Sufficiency: 30-100 ng/mL (75-250 nmol/L) Toxicity: >100 ng/mL (>250 nmol/L) Performed By: #### L 501.9985, L3100.5310, L100.0500, L500.4100, L501.9910, L500.4050, L506.1001 ####[facility] [address] [place], [address] White blood cell (WBC) count Ordered By: Aren Jaimes on 05-02-2025 WBC (Bld) [#/Vol] 5.8 10*3/uL 4.4-11.0 [facility] Orthopedic Visit Reporton Orthopedic Visit Report [facility] [address] [place] [address] [address] [place], [place] [address] OFFICE VISIT Date of Service: 04/25/25 MR#: [id number] Acct: [id number] Name: MERLY,ROXI ANEESH Lewis Rep #: [id number] : 1965 Provider: MARIBELL winkler Age/Sex: 59/M Location: [facility] Status: Signed Intake Vital Signs 03/14/25 10:39 04/10/25 09:28 Height 5 ft 10 in 5 ft 10 in Intake Visit Reasons: right knee Allergies Penicillins Allergy (Verified 04/25/25 10:40) Rash Medications ???Medication ???Instructions ???Recorded ???Confirmed ???Type meloxicam 15 mg tablet 15 mg PO QDAY 03/14/25 03/28/25 Hi story Held on 04/10/25. Instructions: May resume after completion of blood thinner if needed pregabalin 150 mg capsule (Lyrica) 150 mg PO TID 03/14/25 04/25/25 History cholecalciferol (vitamin D3) 25 25 mcg PO DAILY 03/27/25 04/25/25 History mcg (1,000 unit) capsule (Vitamin D3) acetaminophen 500 mg tablet 1,000 mg (2 x 500 mg) PO Q6H #100 04/10/25 04/25/25 Rx tabs PFSH Medical History Wears glasses Wears contact lenses Alcohol use Kidney stones Back pain Injury of back Injury of head and neck Non-smoker Sleep apnea History of edema History of pain when walking History of echocardiogram History of stress test Osteoarthritis Chronic headaches Cataracts, bilateral Arthritis Surgical History Hx of elbow surgery History of rhinoplasty Hx of knee surgery Hx of appendectomy History of cataract surgery History of lumbar fusion Family History Other Cancer Melanoma Social History Smoking Status: Never smoker alcohol intake: current alcohol intake frequency: holidays/special occasions only substance use type: does not use what type of physical activity do you participate in: aerobics and weight training frequency: 1-2 times per week HPI right knee Details: This documentation accurately reflects the service provided and the decisions made by me, MARIBELL Jennings 04/25/25 1037. Part of today???s visit was documented by Christina LOPEZ, acting as scribe. ROXI MORELAND is a 59 year old M here today for 2 week post-op right TKA, dos: 04/10/25. Patient is doing well but his biggest complaint is not being able to get comfortable at night to go to sleep. The first Wednesday after his surgery he stopped taking the oxycodone but has been taking [place] that he was previously prescribed for a different issues. He has been taking the [place] at night for the past 3 nights which has helped with the pain. During the day he does take Tylenol for pain. He did discontinue his walker this past Wednesday and has transitioned to a cane. Agree with above. Roxi is a pleasant 59-year-old 2 weeks status post right TKA. Patient is participating in PT, reports 0 to 120 degree range of motion this morning. Patient is using Tylenol for symptom control during the day and [place] at night as noted above. Patient did have some constipation after use of the oxycodone, that has resolved at this time. Patient is using ice machine several times daily as well as elevation and positioning which helps with achy pain. Reports difficulty sleeping through the night when symptoms become more agitated. Patient has history of lumbar DDD and surgical intervention, that is mildly flared and contributes to difficulty with sleeping. No paresthesias reported. ROS Const All systems reviewed are unremarkable except as noted in H and other (A O x 3, no apparent distress. No recent illness.) ENT Denies dizziness Card Denies chest pain, Denies dyspnea, Denies edema and Reports other (No palpitations) Resp Denies cough, Denies dyspnea and Reports other (No recent URI) GI Reports system reviewed and no additional complaints, except as documented, Denies nausea and Denies vomiting Musc Reports as per HPI Neuro No dizziness Psych Reports system reviewed and no additional complaints, except as documented Raheel/Lymph Denies easy bleeding and Denies easy bruising Ortho Exam Right Knee Date of Surgery: 04/10/25 Skin/Wound: Yes healing and Yes suture/denny removed Contralateral Normal: Yes Homans Sign: No KNEE: Mid anterior knee incision is well-approximated with denny in place, removed during today's visit. There is small amount scabbing. There is no alicja-incisional erythema, warmth, no drainage is present, no streaking. Otherwise leg skin is pink, warm, dry and intact. There is faded ecchymosis to the anterior and medial thigh as well as lower extremity. Lower leg is soft, nontender, easily compressible, Homans ne (more content not included)... Normal [facility] Inital Evaluation (1) - PTon 04-13-2025 Inital Evaluation (1) - PT [facility] Physical Therapy [facility] [address] [place] [address] / REHABILITATION SERVICES INITIAL EVALUATION MR#: [id number] Acct: [id number] Name: ROXI MORELAND Jr. Rep #: [id number] : 1965 59 From: Enzo Carr PT, ATC Referring Dr.: Dr. Ariel Antonio DO Status: R EG RCR Insurance: [facility] [employer]/[facility] SELF PAY INSURANCE Patient's Visit Information Visit Information Visit Information: ROXI MORELAND Jr. is a 59 year old M referred to Physical Therapy by Dr. Ariel Antonio DO with a diagnosis of R TKA 04/10/25. Date of Evaluation: 04/13/25 Physical Therapist: Enzo Carr, PT, ATC Visit Plan Frequency: 2-3x /Week Duration: 6-8 weeks Plan: R knee PROM/mobs, stretching and strengthening, balance and proprio, gait training, stair negotiation, nustep, and HEP Subjective Subjective: DOS: 04/10/25. Pt notes he had a R TKA performed at that time. pt reports he is in a lot more pain than he expected. Pt reports he has tried to sleep in his bed, but has significant difficulty at this time secondary to pain. Pt reports he has some tingling and numbness in R LE along the lateral aspect of R LE. 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 Pt reports he is using a walker At this time, but notes he used no AD prior to surgery. Pt reports he has stairs at home, and has to negotiate them one step at a time. Pt reports he is limited with all house and yard duties at this time secondary to pain. 8/10 pain while sitting here at rest, 10/10 pain at worst Pain R TKA: Pain Intensity (Out of 10): 8 Pain Intensity Range: 10 Objective Objective: MMT: L knee flex= 34, ext= 45 #F; R knee flex= 4, ext= 0 #F ROM: L knee 0-115, R knee 0-20-80 degrees TUG 37 seconds Gait: Pt is able to ambulate 140 feet with walker. Very slow cadance Balance/Special Test Scores Lower Extremity Functional Score: 11 Goals Goal 1:: Decrease R knee pain x 50% to aid with sleep Goal Time Frame: 6-8 Weeks Goal 2:: Increase R knee ROM x 30 degrees to aid with restoring a more normalized gait pattern Goal Time Frame: 6-8 Weeks Goal 3:: Increase R knee strength to equal 90% of L knee strength to aid with RTW Goal Time Frame: 6-8 Weeks Goal 4:: I with HEP Goal Time Frame: 6-8 Weeks Rehabilitation Potential Physical Therapy Diagnosis: Pt has R knee pain, weakness, and limited ROM secondary to R TKA Rehabilitation Potential: Good Anticipated Interventions Patient/Client Instruction: Educate patient on: Condition and Plan of Care For the Purpose of:: To improve self management Therapeutic Exercise to Include: Strength training, Endurance training, Balance training, Flexibilty training, Gait and locomotor training, Passive ROM, Active ROM and Dynamic Lumbar Stabilization For the Purpose of:: To decrease pain, To increase ROM and To improve muscle performance and motor function Cryotherapy (ice pack, ice massage): Yes For the Purpose of:: To decrease pain Text: Thank you for the opportunity to evaluate your patient. For Medicare and Medicare HMO plans, please review the plan of care and approve it. It will need to be FAXED BACK to us at [phone] for Medicare purposes. For Medicare only, by signing this I certify the plan of care. Please let me know if there are questions or concerns regarding this plan of care. Physician Signature: Date : 04/13/25 1258 CC: Dr. Ariel Antonio DO; Dr. Aren Jaimes DO [facility] Signed Normal [facility] Bedside Glucoseon 04-10-2025 FINGERSTICK GLU 95 mg/dL Normal 74-106 [facility] Comment on above: Result Comment: ADDISON BOOKER OF PATIENT CARE PER NURSING PROTOCOL Performed By: #### L [phone] ####[facility] [id number] [place], [place], [address] Decalcification bone/plaqueo n 04-10-2025 Decalcification bone/plaque -------- Patient Age/Sex Location Account Attending Physician -------- ROXI MORELAND Jr. 59/[place] [facility] [id number]. Ariel Antonio, -------- Specimen: [id number] Received: 04/10/25 Status: BEV Vogel Num: [id number] Spec Type: TOTAL KNEE Subm Dr: Dr. Ariel Antonio, HEAD OPERATION: ERAS, right total knee replacement robotic arm assisted PRE-OP DIAGNOSIS: Right knee degenerative joint disease, left knee degenerative joint disease, chronic narcotic use TISSUE SUBMITTED: A- Bone and soft tissue right knee -------- MICROSCOPIC DIAGNOSIS A. Right knee, degenerative joint disease, total knee arthroplasty: * Articular bone with reactive/degenerative changes. MICROSCOPIC DESCRIPTION Slides are reviewed. GROSS DESCRIPTION A. Received in formalin in a container labeled with the patient's name, date of , and bone and soft tissue R knee are multiple keen, firm, and irregular fragments of bone with minimal soft tissue measuring 9.5 x 8.0 x 5.2 cm in aggregate. The specimen consists of, but is not limited to, medial/lateral condyle and tibial plateau. The resection margins are smooth and firm and the cortical surfaces are pitted and granular with smooth areas of eburnation. Sectioning reveals firm and unremarkable surfaces. Police Service Technician sections submitted in A1 following decalcification. [facility] 04-11-2025 CPT:54393,32692 -------- Patient Age/Sex Location Account Attending Physician -------- ROXI MORELAND Jr. 59/[place] [facility] [id number]. Ariel Antonio DO -------- Signed (signature on file) Dr. Anali Carlos MD 04/17/25 0753 -------- Normal [facility] Comment on above: Performed By: #### P DEC ####[facility] [id number] [facility] [place], [address] Discharge Instructionon 05 Discharge Instruction [facility] Medical Records Department [address] [place] [address] Instructions for Home/Discharge Instructions 04/10/25 1324 MR#: [id number] Acct: [id number] Name: ROXI MORELAND Rep #: [id number] : 1965 59 From: Ariel Antonio DO PCP: Dr. Aren Jaimes, DO Status:REG [facility] [place]charge Instructions Diet Discharge Diet: No restrictions Activity Weight Bearing Status: Full weight bearing Dressing / Incision Call your doctor if you observe: Shortness of breath and Chest pain Additional Dressing/Incision Instructions:: Ice and elevate lower extremities 2 weeks while not ambulating. Ambulation is encouraged. Weight bearing as tolerated. Use assistive devise for stability. Encourage FULL knee extension and flexion 1 time EVERY time you get up and down and MULTIPLE times per day. No showering until 72 hours after surgery. May begin showering postop day #3. Remove the dressing prior to shower and gently wash with warm water and antibacterial soap then pat dry and place abdominal pad (or plain gauze) and OMA hose over top. If you decide not to begin showering 72 hrs post operatively and wish to sponge bath only, then you may leave dressing undisturbed for up to 1 week, but must remove prior to first shower. Do not submerge for 3 weeks. If not showering daily after the initial dressing is removed you must clean incision and change dressing daily after the dressing comes off, must come off by 7 days postop. Do not allow animals near the incision area. Keep clean. Follow anti-coagulation recommendations as prescribed. Do not take any NSAIDs while on blood thinner. Do not take any additional narcotic pain medication other than what was prescribed on your surgery day without discussing with physician. Narcotic medication can be addictive. Do not drink alcohol while taking narcotics. Supplement narcotic prescription with acetaminophen 1000 mg 4 times a day. Start physical therapy. If you are not currently scheduled for physical therapy or you are unsure of appointment time please call office EDDIE to arrange. Call Dr. Antonio's office ) with any concerns. Follow Up Care Please Follow Up With: Ariel Antonio DO When: 2 weeks Test Results: Test results from this visit will be discussed in further detail at your follow-up appointment, if applicable. Discharge Plan Admission Primary Reason for Your Visit: Right total knee arthroplasty Attending Provider: Ariel Antonio Primary Care Provider: Aren Jaimes Instructions Print Language: Setswana Discharge Orders/Prescriptions Prescriptions: New acetaminophen 500 mg tablet 1,000 mg PO Q6H Qty: 100 0RF cephalexin 500 mg capsule 1,000 mg PO Q8H Qty: 4 0RF Rx Instructions: Take 2 tabs before you go to bed and 2 tabs after 5 AM morning after surgery when you wake up Eliquis 2.5 mg tablet 2.5 mg PO BID Qty: 28 0RF Rx Instructions: Begin morning after surgery. oxycodone 5 mg tablet 5 - 10 mg PO Q4H PRN (Reason: pain) 7 Days Qty: 60 0RF Continued pregabalin [Lyrica] 150 mg capsule 150 mg PO TID cholecalciferol (vitamin D3) [Vitamin D3] 25 mcg (1,000 unit) capsule 25 mcg PO DAILY Held meloxicam 15 mg tablet 15 mg PO QDAY Hold Instructions: May resume after completion of blood thinner if needed Discontinued hydrocodone-acetamino phen 5-325 mg tablet 1 tab PO BID PRN (Reason: pain) acetaminophen 500 mg capsule 1,000 mg PO Q6H PRN (Reason: pain) Referrals / Follow Up: Amber Holman MD [Non-Staff] - Disposition Disposition (needs filled in before D/C Order can be placed): Home, Self Care 04/10/25 1328 Ariel Antonio DO CC: Dr. Aren Jaimes DO Signed [facility] Glucose measurement at [facility] deOrdered By: Areil Antonio on 04-10-2025 Glucose [Mass/Vol] 95 mg/dL 74-106 [facility] Comment on above: MANAGEMENT OF PATIEN T CARE PER NURSING PROTOCOL Knee 1 or 2 Viewson 04-10-20 Knee 1 or 2 Views [facility] Imaging Services [address] [place] [address] Knee 1 or 2 Views MR#: [id number] Acct: [id number] Name: ROXI MORELAND Jr. Rep #: [id number] : 1965 M 59 From: Praveen Pascual MD PCP: Dr. Aren Jaimes DO Status: [facility] Study: Knee 1 or 2 Views Date of Exam: 04/10/25 Exam# [id number] Ordering Dr: Ariel Antonio DO PROCEDURE: KNEE 1 OR 2 VIEWS 04/10/2025 REASON FOR EXAM: POST OP IN PACU TECHNIQUE: Right knee two views COMPARISON: None FINDINGS: There is a total knee prosthesis in position. Surgical clips and soft tissue air noted consistent with recent surgery. RAD/Knee 1 or 2 Views IMPRESSION: Hardware in position. Reading Location: [facility] CC: Dr. Ariel Antonio DO; Dr. Aren Jaimes DO Basin Finish Operator Tig Welder: Signed Normal [facility] MR/POSTOP.ANEon 04-10-2025 MR/POSTOP.[facility] Medical Records Department [address] [place] [address] Anesthesia Postop Eval I 04/10/25 1343 MR#: [id number] Acct: [id number] Name: ROXI MORELAND Jr. Rep #: [id number] : 1965 59 From: Enzo Pendleton PIANO INSTRUCTOR PCP: Dr. Aren Jaimes, DO Status:REG SDC Y Race: C Location: [place] [address] Anesthesia: Postop Eval I Current Vital Signs Temperature: 97.6 F Pulse Rate: 71 Blood Pressure: 115/68 Respiratory Rate: 16 Pulse Ox: 97 Oxygen Delivery Method: Room Air Assessment Airway patent: Yes Spontaneous unlabored respirations: Yes Mental status: Awake and Calm nausea: No Vomiting: No Anesthesia Complication: No Fluid Hydration Crystalloid volume administer (ml): 1,300 Total IV fluid infused: 1,300 Progress Note Anesthesia document: Postop Eval 1 completed: Yes 04/10/25 1343 Date Enzo Pendleton PIANO INSTRUCTOR Cosigner Signature: Date CC: Signed Normal [facility] MR/WEPRUDNW9is 04-10-2025 /[facility] Medical Records Department [address] [place] [address] Anesthesia Postop Eval II 04/10/25 1539 MR#: [id number] Acct: [id number] Name: MERLYROXI SPENCER Jr. Rep #: [id number] : 1965 59 From: Stewart Cee MD PCP: Dr. Aren Jaimes, DO Status:REG SDC Y Race: C Location: [place] [address] Anesthesia Postop Eval I Sum Postop Eval Completion status Anesthesia document: Postop Eval 1 completed: Yes Anesthesia Postop Eval I Summary Anesthesia Postop Eval I Summary: Anesthesia Postop Eval I: Assessment Summary Airway patent Yes 04/10/25 13:43 PIANO INSTRUCTOR.SOBR Spontaneous unlabored Yes 04/10/25 13:43 PIANO INSTRUCTOR.SOBR respirations Mental status Awake,Calm 04/10/25 13:43 PIANO INSTRUCTOR.SOBR nausea No 04/10/25 13:43 PIANO INSTRUCTOR.SOBR Vomiting No 04/10/25 13:43 PIANO INSTRUCTOR.SOBR Anesthesia Postop Eval I: Fluid Summary Crystalloid volume administer 1,300 04/10/25 13:43 PIANO INSTRUCTOR.SOBR (ml) Colloids volume administered ( ml) Blood Product volume administered (ml) Total IV fluid infused 1,300 04/10/25 13:43 PIANO INSTRUCTOR.SOBR Anesthesia Postop Eval I: Summary Notes Anesthesia Complication No 04/10/25 13:43 PIANO INSTRUCTOR.SOBR Anesthesia Complication Comment: Post-operative progress note Anesthesia: Postop Eval II Evaluation Mental status: Awake Pain Level: 3 nausea: No Vomiting: No 04/10/25 1539 Date Stewart Coleman Baker Signature: Date CC: Signed Normal [facility] Operative Reporton 5 Operative Report [facility] Medical Records Department [address] [place] [address] Operative Report 04/10/25 1320 MR#: [id number] Acct: [id number] Name: ROXI MORELAND Rep #: [id number] : 1965 59 From: Ariel Antonio DO PCP: Dr. Aren Jaimes, DO Status:[facility] Location: [place] [address] Operative Report (Standard) Operative Information Date of Procedure: 04/10/25 Pre-Operative Diagnosis: Right knee DJD Post-Operative Diagnosis: Same Surgery/Procedure Performed: Right total knee arthroplasty packaging operator: Yes Manager Lvn: Pa Fermin Tasks completed by wheelchair van operator first responder: Opening closing, Implanting device and Retracting Type of Anesthesia: Spinal RN Documented Start/Stop Times: Operation Date: 04/10/25 11:00 Case Time Into Pre-Op 04/10/25 09:01 Out of Pre-Op 04/10/25 10:21 Anesthesia Start 04/10/25 10:30 Into Room 04/10/25 10:30 Procedure Start 04/10/25 11:12 Procedure Start Time: 11:12 Procedure Stop Time: 13:18 Select all DRAINS/GRAFTS/IMPLANT S that apply: Prosthetic device Prosthetic device details: Sobeida triathlon Estimated Blood Loss: 150 Specimen collected: Yes Description of specimen(s) removed: Bone and soft tissue Description of surgery: Preoperative diagnosis: Right knee DJD Postoperative diagnosis: Same Procedure: Right total knee arthroplasty CT guided Robotic Assisted Implant: Sobeida triathlon press fit, femoral component size 6, tibial baseplate size 6, asymmetric patella size 36, polyethylene X3 size 9 CS Anesthesia: Spinal with adductor canal block Tourniquet time: 12 minutes at 300 mmHg Complications: None Condition: Stable to PACU Estimated blood loss: 150 cc Line Leader Pa Fermin. My physician design assistant was a vital part of this case. He was important in appropriate retraction during the case, and protection of soft tissues during procedure. His i ntimate knowledge of the case and my steps aided in safe and expedient completion of the procedure as well as appropriate position of the extremity during the case. He was also vital in assisting with closure under my direct supervision. Indication for procedure: This is a 59-year-old male with long standing degenerative joint disease of the knee who has failed conservative treatment and wished to proceed with elective total knee arthroplasty. Risk benefits and alternatives were reviewed including; risk of bleeding, infection, nerve artery and tissue damage, continued pain, postoperative stiffness, venous thromboembolism, need for postoperative rehabilitation, mechanical feel to the knee, and expected postoperative course. The pre- operative CT and templating was performed with component sizing. Procedure: The patient was met in the preoperative holding area. The operative extremity was identified by both patient and physician and was marked. Patient was met by anesthesia. An a dductor canal block was placed by anesthesia postoperatively the patient was brought back to the operating room on a wheeled cart and transferred to the operating table in the supine position. Anesthesia was started. A well-padded tourniquet was placed on the operative extremity. The patient was prepped and draped in the usual sterile fashion. A timeout was called to ensure the proper patient procedure and extremity were being contemplated. An esmarch was used to exsanguinate the extremity. The tourniquet was inflated. A 10 blade scalpel was used to make a midline incision down through the skin and subcutaneous tissue. Skin retractors placed. Bovie and Aquamantis were used to perform meticulous hemostasis. full-thickness flaps were elevated medial and lateral along the joint capsule. A deep blade scalpel was used to perform a medial parapatellar arthrotomy. The knee was brought to full extension. A bovie was used to release the soft tissues off the most proximal aspect of the medial tibial plateau, a three-quarter inch curved osteotome was also used in this process. The infrapatellar fat pad was excised. The suprapatellar fat pad was excised partially anteriorolateraly and portion the anterioromedial pad was elevated from the femur. At this point our intra-articular femoral array was placed at a 45 degree angle proximal and posterior to the medial epicondyle. femoral checkpoint was placed at this time. Our tibial array was placed partially intra incisional 1 stab incision was made for the inferior pin with a 15 blade scaple, and pins were placed and attached to the tibial array , tibial checkpoint was placed in the proximal tibial metaphysis. Tourniquet was let down. At this point registration march were taken throughout the knee . Once the knee was registered we then tensioned the medial and lateral ligaments in extension and 90 degrees of flexion. We then used these numbers to adjust our components within parameters t (more content not included)... Normal [facility] Extremity Lower without Cont raon 04-03-2025 Extremity Lower without Contra [facility] Imaging Services [address] [place], [place] [id number] Extremity Lower without Contra MR#: [id number] Acct: [id number] Name: ROXI MORELAND Rep #: [id number] : 1965 M 59 From: Fernando mo MD PCP: Dr. Aren Jaimes DO Status: REG CLI Study: Extremity Lower without Contra Date of Exam: 0 04/03/25 Exam# [id number] Ordering Dr: Ariel Antonio DO PROCEDURE: EXTREMITY LOWER WITHOUT CONTRA 04/03/2025 REASON FOR EXAM: TEMPLATING FOR RIGHT TKA Enrique protocol. TECHNIQUE: Axial CT images of the right lower extremity obtained without intravenous contrast. Coronal and Sagittal reconstruction series were provided. One or more dose reduction techniques were used (e.g., Automated exposure control, adjustment of the mA and/or kV according to patient size, use of iterative reconstruction technique). RADIATION DOSE SUMMARY: CTDlvol: 19 mGy DLP: 1419.78 mGycm COMPARISON: None FINDINGS: Bones: No evidence of fracture. Joints: Imaging of the right hip joint was obtained. There is marked degree of of the prior knee joint with moderate degree of osteoarthritis of the patellofemoral joint. Imaging of the ankle joint was obtained. No significant abnormality is seen. Soft Tissues: Tiny right knee joint effusion. CT/Extremity Lower without Contra IMPRESSION: Osteoarthritis of the right knee joint as described for Enrique protocol. Reading Location: [facility] CC: Dr. Ariel Antonio DO; Dr. Aren Jaimes DO Basin Finish Operator Tig Welder: Signed Normal [facility] Electrocardiogram reportOrde red By: Aren Madison on 03-30-2025 EKG study [facility] Cardiovascular Services [address] [place] [address] 6[address] 12 Lead EKG 03/29/25 1139 MR#: [id number] Acct: [id number] Name: ROXI MORELAND Rep #:[id number] : 1965 59 From: Aren prabhakar MD Attending Dr: Dr. Ariel Antonio DO Status: PRE CAC Ordering Dr: Ariel Antonio DO Date: 03/29/25 [place] [facility] [place] M C Admitted: Test Reason : PREOP Blood Pressure : */* mmHG Vent. Rate : 61 BPM Atrial Rate : 61 BPM P-R Int : 134 ms QRS Dur : 82 ms QT Int : 384 ms P-R-T Axes : 19 2 18 degrees QTcB Int : 386 ms Normal sinus rhythm Normal ECG Confirmed by Aren Madison ([id number]), video news editor EMILY ESTES ([id number]) on 03/30/2025 12:20:17 PM Referred By: Ariel Antonio Confirmed By: Aren Madison 03/30/25 1220 Date _ Aren Madison MD CC: Dr. Ariel Antonio DO; Dr. Aren Jaimes, DO ~ Signed [facility] Work Phone: Fructosamineon 03-30-2025 FRUCTOSAMINE 235 umol/L Normal 0-285 [facility] Comment on above: Result Comment: Publ ished reference interval for apparently healthy subjects between age 20 and 60 is 205 - 285 umol/L and in a poorly controlled diabetic population is 228 - 563 umol/L with a mean of 396 umol/L. Performed at: - [facility] [id number] Learning And Development Assistant: Rob Sotomayor PhD, Phone: [phone] Performed By: #### M 100.651, BTSPAT, L100.0100, L300.4310, L501.9985, L3400.0100, L300.3900 ####[facility] [address] [place], [place], [address] MRSA/SAID NASAL SCREENon MRSA+SAID SCRN Reason for Exam: Surgery Copy of report sent to Infection Control Printer [id number] 03/30/25 1409 VSICK. MRSA MRSA Positive A S. AUREUS S. aureus PositiveA Normal [facility] Comment on above: Performed By: #### M 100.651, BTSPAT, L100.0100, L300.4310, L501.9985, L3400.0100, L300.3900 ####[facility] [address] [place], [place], [address] 12 Lead EKGon 03-29-2025 12 Lead EKG [facility] Cardiovascular Services [address] [place] [address] 12 Lead EKG 03/29/25 1139 MR#: [id number] Acct: [id number] Name: ROXI MORELAND Rep #: [id number] : 1965 59 From: Aren Madison MD Attending Dr: Dr. Ariel Antonio DO Status: MA E SDC Ordering Dr: Ariel Antonio DO Date: 03/29/25 [place] [facility] [place] Sex: M C Admitted: Test Reason : PREOP Blood Pressure : */* mmHG Vent. Rate : 61 BPM Atrial Rate : 61 BPM P-R Int : 134 ms QRS Dur : 82 ms QT Int : 384 ms P-R-T Axes : 19 2 18 degrees QTcB Int : 386 ms Normal sinus rhythm Normal ECG Confirmed by Aren Madison ([id number]), video news editor EMILY ESTES ([id number]) on 03/30/2025 12:20:17 PM Referred By: Ariel Antonio Confirmed By: Aren Madison 03/30/25 1220 Date Aren Madison MD CC: Dr. Ariel Antonio DO; Dr. Aren Jaimes DO Signed Normal [facility] Absolute lymphocyte countOrd ered By: Ariel Antonio on 03-29-2025 Lymphocytes Auto (Unsp spec) [#/Vol] 1.68 10*3/uL 0.83-4.51 [facility] Absolute neutrophil countOrd ered By: Ariel Antonio on 03-29-2025 Neutrophils (Bld) [#/Vol] 3.6 10*3/uL 2.0-7.7 [facility] Activated partial thrombopla stin time (aPTT) in platelet poor plasma by coagulation aOrdered By: Ariel Antonio on 03-29-2025 aPTT Coag (PPP) [Time] 26.4 s 24.1-36.2 [facility] Anion gap in Serum or Plasma Ordered By: Ariel Antonio on 03-29-2025 Anion gap [Moles/Vol] 10 mmol/L 5-15 [facility] Automated lymphocyte count a s percentage of total leukocytesOrdered By: Ariel Antonio on 03-29-2025 Lymphocytes/100 WBC Auto (Unsp spec) 28.8 % 19-41 [facility] BUN/creatinine ratioOrdered By: Ariel Antonio on 03-29-2025 Urea nitrogen/Creatinine [Mass ratio] 18.2 mg/mg 10-20 [facility] Basic Metabolic Profile (BMP )on 03-29-2025 BUN/CRE 18.2 RATIO Normal 10-20 [facility] Comment on above: Performed By: #### L 501.5200, L500.2500 ####[facility] [address] [place], [address] Calcium [Mass/Vol] 9.1 mg/dL Normal 7.6-11.0 [facility] Comment on above: Performed By: #### L 501.5200, L500.2500 ####[facility] [address] [place], [address] Chloride [Moles/Vol] 105 mmol/L Normal 98-108 [facility] Comment on above: Performed By: #### L 501.5200, L500.2500 ####[facility] [address] [place], [address] CO2 [Moles/Vol] 25.5 mmol/L Normal 21.0-32.0 [facility] Comment on above: Performed By: #### L 501.5200, L500.2500 ####[facility] [address] [place], [address] Creatinine [Mass/Vol] 0.93 mg/dL Normal 0.70-1.20 [facility] Comment on above: Performed By: #### L 501.5200, L500.2500 ####[facility] [address] [place], [address] GAP 10 Normal 5-15 [facility] Comment on above: Performed By: #### L 501.5200, L500.2500 ####[facility] [address] [place], [address] GFR/1.73 sq M.predicted among non-blacks MDRD (S/P/Bld) [Vol rate/Area] 95 mL/min/{1.73_m2} Normal >60 [facility] Comment on above: Result Comment: mL/m in/1.73m2 CKD-EPI Creatinine Equation (2020) Performed By: #### L 501.5200, L500.2500 ####[facility] [address] [place], [address] Glucose [Mass/Vol] 96 mg/dL Normal 70-99 [facility] Comment on above: Performed By: #### L 501.5200, L500.2500 ####[facility] [address] [place], [address] Potassium [Moles/Vol] 4.3 mmol/L Normal 3.3-5.1 [facility] Comment on above: Performed By: #### L 501.5200, L500.2500 ####[facility] [address] [place], [address] Sodium [Moles/Vol] 140 mmol/L Normal 133-145 [facility] Comment on above: Performed By: #### L 501.5200, L500.2500 ####[facility] [address] [place], [address] Urea nitrogen [Mass/Vol] 17 mg/dL Normal 4-19 [facility] Comment on above: Performed By: #### L 501.5200, L500.2500 ####[facility] [address] [place], [address] Basophil percentageOrdered B y: Ariel Goelcooper on 03-29-2025 Basophils/100 WBC (Bld) 0.7 % 0-1 [facility] CBC W/Diff, Automatedon Absolute Lymph 1.68 X10 3/uL Normal 0.83-4.51 [facility] Comment on above: Performed By: #### M 100.651, BTSPAT, L100.0100, L300.4310, L501.9985, L3400.0100, L300.3900 #### [facility] Laboratory [address] [place], [address] Absolute Neut 3.6 X10 3/uL Normal 2.0-7.7 [facility] Comment on above: Performed By: #### M 100.651, BTSPAT, L100.0100, L300.4310, L501.9985, L3400.0100, L300.3900 #### [facility] Laboratory [address] [place], [address] Basophils/100 WBC (Bld) 0.7 % Normal 0-1 [facility] Comment on above: Performed By: #### M 100.651, BTSPAT, L100.0100, L300.4310, L501.9985, L3400.0100, L300.3900 #### [facility] Laboratory [address] [facility] [place], [address] Eosinophils/100 WBC (Bld) 2.1 % Normal 0-5 [facility] Comment on above: Performed By: #### M 100.651, BTSPAT, L100.0100, L300.4310, L501.9985, L3400.0100, L300.3900 #### [facility] Laboratory [address] [place], [address] Erythrocyte distribution width (RBC) [Ratio] 12.9 % Normal 11.6-14.6 [facility] Comment on above: Performed By: #### M 100.651, BTSPAT, L100.0100, L300.4310, L501.9985, L3400.0100, L300.3900 #### [facility] Laboratory [address] [place], [address] Hematocrit (Bld) [Volume fraction] 42.3 % Normal 40-54 [facility] Comment on above: Performed By: #### M 100.651, BTSPAT, L100.0100, L300.4310, L501.9985, L3400.0100, L300.3900 #### [facility] Laboratory [address] [place], [address] Hemoglobin (Bld) [Mass/Vol] 13.8 g/dL Normal 13.0-16.5 [facility] Comment on above: Performed By: #### M 100.651, BTSPAT, L100.0100, L300.4310, L501.9985, L3400.0100, L300.3900 #### [facility] Laboratory [address] [place], [address] IG% 0.700 Normal 0.0-0.9 [facility] Comment on above: Result Comment: IG% - Immature Granulocytes (promyelocytes, myelocytes and metamyelocytes) > 1% indicates that a LEFT SHIFT is Present. Performed By: #### M 100.651, BTSPAT, L100.0100, L300.4310, L501.9985, L3400.0100, L300.3900 #### [facility] Laboratory [address] [place], [address] Lymphocytes/100 WBC (Bld) 28.8 % Normal 19-41 [facility] Comment on above: Performed By: #### M 100.651, BTSPAT, L100.0100, L300.4310, L501.9985, L3400.0100, L300.3900 #### [facility] Laboratory [address] [place], [address] MCH (RBC) [Entitic mass] 30.6 pg Normal 27.0-32.0 [facility] Comment on above: Performed By: #### M 100.651, BTSPAT, L100.0100, L300.4310, L501.9985, L3400.0100, L300.3900 #### [facility] Laboratory [address] [place], [address] MCHC (RBC) [Mass/Vol] 32.6 g/dL Normal 32-36 [facility] Comment on above: Performed By: #### M 100.651, BTSPAT, L100.0100, L300.4310, L501.9985, L3400.0100, L300.3900 #### [facility] Laboratory [address] [place], [address] MCV (RBC) [Entitic vol] 93.8 fL Normal 80-94 [facility] Comment on above: Performed By: #### M 100.651, BTSPAT, L100.0100, L300.4310, L501.9985, L3400.0100, L300.3900 #### [facility] Laboratory [address] [place], [address] Monocytes/100 WBC (Bld) 6.7 % Normal 0-10 [facility] Comment on above: Performed By: #### M 100.651, BTSPAT, L100.0100, L300.4310, L501.9985, L3400.0100, L300.3900 #### [facility] Laboratory [address] [place], [address] Neutrophils/100 WBC (Bld) 61.0 % Normal 47-70 [facility] Comment on above: Performed By: #### M 100.651, BTSPAT, L100.0100, L300.4310, L501.9985, L3400.0100, L300.3900 #### [facility] Laboratory [address] [place], [address] Nucleated RBC (Bld) [#/Vol] 0 10*3/uL Normal 0-5 [facility] Comment on above: Performed By: #### M 100.651, BTSPAT, L100.0100, L300.4310, L501.9985, L3400.0100, L300.3900 #### [facility] Laboratory [address] [place], [address] Platelet mean volume (Bld) [Entitic vol] 11.2 fL Normal 6.2-12.0 [facility] Comment on above: Performed By: #### M 100.651, BTSPAT, L100.0100, L300.4310, L501.9985, L3400.0100, L300.3900 #### [facility] Laboratory [address] [place], [address] Platelets (Bld) [#/Vol] 252 10*3/uL Normal 150-450 [facility] Comment on above: Performed By: #### M 100.651, BTSPAT, L100.0100, L300.4310, L501.9985, L3400.0100, L300.3900 #### [facility] Laboratory [address] [place], [address] RBC (Bld) [#/Vol] 4.51 10*6/uL Low 4.6-6.2 [facility] Comment on above: Performed By: #### M 100.651, BTSPAT, L100.0100, L300.4310, L501.9985, L3400.0100, L300.3900 #### [facility] Laboratory [address] [place], [address] RDW SD 44.2 fl High 35.1-43.9 [facility] Comment on above: Performed By: #### M 100.651, BTSPAT, L100.0100, L300.4310, L501.9985, L3400.0100, L300.3900 #### [facility] Laboratory [address] [place], [address] WBC (Bld) [#/Vol] 5.8 10*3/uL Normal 4.4-11.0 [facility] Comment on above: Performed By: #### M 100.651, BTSPAT, L100.0100, L300.4310, L501.9985, L3400.0100, L300.3900 #### [facility] [place], [address] Carbon dioxide, total [Moles /volume] in Central venous bloodOrdered By: Ariel Antonio on 03-29-2025 CO2 [Moles/Vol] 25.5 mmol/L 21.0-32.0 [facility] Chloride assayOrdered By: Anju Antonio on 03-29-2025 Chloride [Moles/Vol] 105 mmol/L 98-108 [facility] Eosinophil percentageOrdered By: Ariel Antonio on 03-29-2025 Eosinophils/100 WBC (Bld) 2.1 % 0-5 [facility] Erythrocyte distribution wid th ratioOrdered By: Ariel Antonio on 03-29-2025 Erythrocyte distribution width (RBC) [Ratio] 12.9 % 11.6-14.6 [facility] Erythrocyte distribution wid th standard deviationOrdered By: Ariel Antonio on 03-29-2025 Erythrocyte distribution width (RBC) [Ratio] 44.2 fl High 35.1-43.9 [facility] Glomerular filtration rate ( GFR) estimation/1.73 sq m using serum, plasma, or whole bOrdered By: Ariel Antonio on 03-29-2025 GFR/1.73 sq M.predicted among non-blacks MDRD (S/P/Bld) [Vol rate/Area] 95 mL/min/{1.73_m2} >60 [facility] Comment on above: mL/min/1.73m2 CKD-EP I Creatinine Equation (2020) Hematocrit Auto (Bld) [Volum e fraction]Ordered By: Ariel Antonio on 03-29-2025 Hematocrit (Bld) [Volume fraction] 42.3 % 40-54 [facility] Hemoglobin A1con 03-29-2025 HbA1c (Bld) [Mass fraction] 5.6 % Normal <=5.6 [facility] Comment on above: Result Comment: Norm al < 5.7 % Prediabetic 5.7 - 6.4 % Diabetic >or= 6.5 % Please note range changes. Performed By: #### M 100.651, BTSPAT, L100.0100, L300.4310, L501.9985, L3400.0100, L300.3900 ####[facility] [address] [place], [address] Hemoglobin A1c percentageOrd ered By: Ariel Paco on 03-29-2025 HbA1c (Bld) [Mass fraction] 5.6 % <5.7 [facility] Comment on above: Normal < 5.7 % Predi abetic 5.7 - 6.4 % Diabetic >or= 6.5 % Please note range changes. Hemoglobin measurementOrdere d By: Ariel Paco on 03-29-2025 Hemoglobin (Bld) [Mass/Vol] 13.8 g/dL 13.0-16.5 [facility] Immature granulocytes/100 WB C Auto (Bld)Ordered By: Ariel Josuécooper on 03-29-2025 Immature granulocytes/100 WBC (Bld) 0.700 % 0.0-0.9 [facility] Comment on above: IG% - Immature Granu locytes (promyelocytes, myelocytes and metamyelocytes) > 1% indicates that a LEFT SHIFT is Present. International normalized rat io (INR) calculationOrdered By: Ariel Paco on 03-29-2025 INR Coag (Bld) [Relative time] 1.0 {INR} [facility] MCV (mean corpuscular volume ) determinationOrdered By: [facility] on 03-29-2025 MCV (RBC) [Entitic vol] 93.8 fL 80-94 [facility] MR/PAT.ANEon 03-29-2025 MR/PAT.ANE [facility] Medical Records Department [address] [place] [address] PAT - Anesthesia 03/29/25 1513 MR#: [id number] Acct: [id number] Name: ROXI MORELAND Jr. Rep #: [id number] : 1965 59 From: Caden Toledo MD PCP: Dr. 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 When Was Last Pacemaker Check QUESTION #4 FULL TEXT: You/Your Family Experience fever (hyperthermia) with Anesthesia Last Oral Intake Last Oral intake: Last Oral Intake NPO since Meds taken in AM with sips of water? Meds patient instructed to take am of surgery PONV PONV - rip tailer: PONV - rip tailer Female No 03/27/25 09:35 HX of Motion Sickness No 03/27/25 09:35 HX of N/V After Surgery No 03/27/25 09:35 Non-Smoker Yes 03/27/25 09:35 Duration of Surgery greater No 03/27/25 09:35 than 60 minutes Number of Risk Factors 1 03/27/25 09:35 PONV Score Low Risk 03/27/25 09:35 Height Weight Height Weight: Anesthesia: Height Weight Height 5 ft 10 in 03/14/25 10:39 Respiratory Assessment Respiratory Assessment - rip tailer: Respiratory Tract Infection Hx - rip tailer Hx Respiratory Tract Infection No 03/27/25 09:35 STOP Sleep Apnea STOP Sleep Apnea - rip tailer: STOP Sleep Apnea - rip tailer Hx Hypertension No 03/27/25 09:35 Hx Sleep Apnea No 03/27/25 09:35 CPAP BIPAP Do you snore loudly (louder Yes 03/27/25 09:35 than talking or can be heard Do you often feel tired/ No 03/27/25 09:35 fatigued/ sleepy during daytime? Has anyone observed you stop No 03/27/25 09:35 breathing during sleep? STOP Results Negative 03/27/25 09:35 QUESTION #5 FULL TEXT : Do you snore loudly (louder than talking or can be heard through closed doors)? 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 Specify any problems Hx of Preganancy in last 3 N/A 03/27/25 09:35 Months Nurse Filling Out Transfusion VCHRISTIN 03/27/25 09:35 Questions: Date: 03/27/25 03/27/25 09:35 Time: 09:44 03/27/25 09:35 Patient unable to answer at this time (ie. confused, unrespo /Reproductio n History /Reproductiv e History - rip tailer: /Reproductiv e Hx- rip tailer Hx Now Gestational Age (in weeks): EDC: Hx Hx Para Hx Section SAB PFSH Medical History Wears glasses Wears contact lenses Alcohol use Kidney stones Back pain Injury of back Injury of head and neck Non-smoker Sleep apnea History of edema History of pain when walking History of echocardiogram History of stress test Osteoarthritis Chronic headaches Cataracts, bilateral Arthritis Home Medications ???Medication ???Instructions ???Recorded ???Last Taken ???Type hydrocodone-acetamino phen 5-325mg 1 tab PO BID PRN pain 03/14/25 Un known History 5mg-325mg meloxicam 15 mg tablet 15 mg PO QDAY 03/14/25 Unknown His tory pregabalin 150 mg capsule (Lyrica) 150 mg PO TID 03/14/25 Unknown H istory acetaminophen 500 mg capsule 1,000 mg PO Q6H PRN pain 03/27/25 Unknown History cholecalciferol (vitamin D3) 25 25 mcg PO DAILY 03/27/25 Unknown H istory mcg (1,0 (more content not included)... Normal [facility] MRSA screenOrdered By: Wilfred Antonio on 03-29-2025 MRSA DNA SARTHAK+probe Ql (Unsp spec) [facility] Magnesiumon 03-29-2025 Magnesium [Mass/Vol] 2.3 mg/dL High 1.5-2.2 [facility] Comment on above: Performed By: #### L 501.5200, L500.2500 ####[facility] [address] [place], [place], [id number] Magnesium measurement (mass/ volume)Ordered By: Caden Toledo on 03-29-2025 Magnesium (Unsp spec) [Mass/Vol] 2.3 mg/dL High 1.5-2.2 [facility] Mean corpuscular hemoglobin (MCH) determinationOrdered By: Ariel Antonio on 03-29-2025 MCH (RBC) [Entitic mass] 30.6 pg 27.0-32.0 [facility] Mean corpuscular hemoglobin concentration (MCHC) determinationOrdered By: Ariel Antonio on 03-29-2025 MCHC (RBC) [Mass/Vol] 32.6 g/dL 32-36 [facility] Mean platelet volume determi nationOrdered By: Ariel Antonio on 03-29-2025 Platelet mean volume (Bld) [Entitic vol] 11.2 fL 6.2-12.0 [facility] Monocyte percentageOrdered B y: Ariel Antonio on 03-29-2025 Monocytes/100 WBC (Bld) 6.7 % 0-10 [facility] Neutrophil percentageOrdered By: Ariel Antonio on 03-29-2025 Neutrophils/100 WBC (Bld) 61.0 % 47-70 [facility] Nucleated red blood cell per centageOrdered By: Ariel Antonio on 03-29-2025 Nucleated RBC/100 WBC (Bld) [Ratio] 0 % 0-5 [facility] Partial Thromboplast Timeon 03-29-2025 aPTT Coag (Bld) [Time] 26.4 s Normal 24.1-36.2 [facility] Comment on above: Performed By: #### M 100.651, BTSPAT, L100.0100, L300.4310, L501.9985, L3400.0100, L300.3900 #### [facility] Laboratory [address] [place], [address] Platelet countOrdered By: Anju Antonio on 03-29-2025 Platelets (Bld) [#/Vol] 252 10*3/uL 150-450 [facility] Potassium measurement (mass/ volume)Ordered By: Ariel Antonio on 03-29-2025 Potassium (Unsp spec) [Mass/Vol] 4.3 mmol/L 3.3-5.1 [facility] Prothrombin Time w/INRon INR Coag (PPP) [Relative time] 1.0 {INR} Normal [facility] Comment on above: Performed By: #### M 100.651, BTSPAT, L100.0100, L300.4310, L501.9985, L3400.0100, L300.3900 #### [facility] Laboratory [address] [place], [address] PT Coag (PPP) [Time] 13.8 s Normal 11.7-14.9 [facility] Comment on above: Performed By: #### M 100.651, BTSPAT, L100.0100, L300.4310, L501.9985, L3400.0100, L300.3900 #### [facility] Laboratory [address] [place], [address] Prothrombin timeOrdered By: Ariel Antonio on 03-29-2025 PT Coag (PPP) [Time] 13.8 s 11.7-14.9 [facility] RBC Auto (Bld) [#/Vol]Ordere d By: Ariel Antonio on 03-29-2025 RBC (Bld) [#/Vol] 4.51 10*6/uL Low 4.6-6.2 [facility] Serum creatinine measurement (mass/volume)Ordered By: Ariel Antonio on 03-29-2025 Creatinine [Mass/Vol] 0.93 mg/dL 0.70-1.20 [facility] Serum glucose measurement (m ass/volume)Ordered By: Ariel Antonio on 03-29-2025 Glucose [Mass/Vol] 96 mg/dL 70-99 [facility] Serum or plasma calcium carley urement (mass/volume)Ordered By: Ariel Antonio on 03-29-2025 Calcium [Mass/Vol] 9.1 mg/dL 7.6-11.0 [facility] Serum or plasma urea nitroge n measurement (mass/volume)Ordered By: Ariel Antonio on 03-29-2025 Urea nitrogen [Mass/Vol] 17 mg/dL 4-19 [facility] Sodium levelOrdered By: Shiva Antonio on 03-29-2025 Sodium [Moles/Vol] 140 mmol/L 133-145 [facility] Type AND Screen - PAT ONLYon 03-29-2025 ABO and Rh group Nom (Bld) Blood group O Rh(D) positive Normal [facility] Comment on above: Order Comment: Surge ry Date: 04/10/25Reason for Laboratory Test [id number](R) Right Total Knee Replacement Robotic Arm Assisted, Performed By: #### M 100.651, BTSPAT, L100.0100, L300.4310, L501.9985, L3400.0100, L300.3900 ####[facility] [id number] [place], [address] White blood cell (WBC) count Ordered By: Ariel Anotnio on 03-29-2025 WBC (Bld) [#/Vol] 5.8 10*3/uL 4.4-11.0 [facility] Orthopedic Visit Reporton Orthopedic Visit Report [facility] [address] [place] [address] [address] [place], [place] [address] OFFICE VISIT Date of Service: 03/28/25 MR#: [id number] Acct: [id number] Name: ROXI MORELAND Jr. Rep #: [id number] : 1965 Provider: Dr. Ariel gamboa DO Age/Sex: 59/M Location: [facility] Status: Signed Intake Vital Signs 03/14/25 10:39 Height 5 ft 10 in Weight: 232 lb BMI 33.3 Intake Visit Reasons: right knee Chief Complaint: Bilateral knees Allergies Penicillins Allergy (Verified 03/28/25 15:11) Rash Medications ???Medication ???Instructions ???Recorded ???Confirmed ???Type hydrocodone-acetamino phen 5-325mg 1 tab PO BID PRN pain 03/14/25 History 5mg-325mg meloxicam 15 mg tablet 15 mg PO QDAY 03/14/25 03/28/25 Hi story pregabalin 150 mg capsule (Lyrica) 150 mg PO TID 03/14/25 03/28/25 History acetaminophen 500 mg capsule 1,000 mg PO Q6H PRN pain 03/27/25 03/28/25 History cholecalciferol (vitamin D3) 25 25 mcg PO DAILY 03/27/25 03/28/25 History mcg (1,000 unit) capsule (Vitamin D3) PFSH Medical History Wears glasses Wears contact lenses Alcohol use Kidney stones Back pain Injury of back Injury of head and neck Non-smoker Sleep apnea History of edema History of pain when walking History of echocardiogram History of stress test Osteoarthritis Chronic headaches Cataracts, bilateral Arthritis Surgical History Hx of elbow surgery History of rhinoplasty Hx of knee surgery Hx of appendectomy History of cataract surgery History of lumbar fusion Family History Other Cancer Melanoma Social History Smoking Status: Never smoker alcohol intake: current alcohol intake frequency: holidays/special occasions only substance use type: does not use what type of physical activity do you participate in: aerobics and weight training frequency: 1-2 times per week HPI right knee Details: This documentation accurately reflects the service provided and the decisions made by me, Dr. Ariel Antonio, DO 03/28/25 0938. Part of today???s visit was documented by Christina LOPEZ, acting as scribe. ROXI MORELAND is a 59 year old M here today for right knee Iovera procedure, dos: 04/10/25. Ortho Exam General General: Yes no acute distress and Yes well groomed Neurologic: Yes alert and Yes oriented x3 Psychologic: Yes reasonable and appropriate Right Knee Skin/Wound: No erythema, No ecchymosis and Yes swelling Homans Sign: No Knee ROM: Yes ROM-Extension -20 to 0 (-5) and Yes ROM-Flexion 0-140 (110) Examination: Yes Med jt line tenderness, Yes Lat jt line tenderness, Yes Crepitus, Yes Pain with flexion, Yes Pain with extention and Yes TTP Pes Anserine Stability: NML: Anterior Drawer, NML: Posterior Drawer, NML: Valgus 0, NML: Valgus 30, NML: Varus 0 and NML: Varus 30 Patella Translation: 1 Apprehension with Lateral Translation: No Patella Grind: Yes KNEE: no effusion pain with crepitation edema right leg worse than left medial scar from prior surgery no sign of infection no collateral instability Left Knee Skin/Wound: No ecchymosis, No erythema and No swelling Homans Sign: No Knee ROM: Yes ROM-Extension -20 to 0 and Yes ROM-Flexion 0-140 (118) Examination: No med jt line tenderness, No Lat jt line tenderness, Yes Crepitus, Yes Pain with flexion and No TTP Pes Anserine Stability: NML: Anterior Drawer, NML: Feliciano, NML: Posterior Drawer, NML: Valgus 0, NML: Valgus 30, NML: Varus 0 and NML: Varus 30 Patella Translation: 1 Patella Grind: Yes KNEE: no effusion Office Procedures Iovera Procedure Details:: Preoperative diagnosis :chronic knee pain Postoperative diagnosis: Same Procedure: Cryotherapy with Iovera device to anterior femoral cutaneous nerve and 2 branches of the infrapatellar saphenous nerve. Three nerves in total. Description of procedure: Patient was brought back to the procedure room the operative extremity was identified by both patient and physician. Entire extremity was cleaned with alcohol. The superior inferior and medial lateral borders of the patella were marked followed by the center of the patella. We then measured 12 cm proximal to this and with the knee in flexion marked the medial and lateral edges of the patella continuing proximally to give us our proximal treatment line.This was our treatment line for the anterior femoral cutaneous nerve. A second treatment line was made 5 cm medial to the inferior pole of the patella and 5 cm distally. The treatment lines were then prepped with Betadine and 1 last time with alcohol. Lidocaine 1% with epi (more content not included)... Normal [facility] Knee 4 or More Viewson 03-14 Knee 4 or More Views [facility] Imaging Services [address] [place], [place] [address] Knee 4 or More Views MR#: [id number] Acct: [id number] Name: ROXI MORELAND Jr. Rep #: [id number] : 1965 M 59 From: Lloyd Reardon MD PCP: Dr. Amber Holman MD Status: REG CLI Study: Knee 4 or More Views Date of Exam: 03/14/25 Exam# [id number] Ordering Dr: Ariel Antonio DO PROCEDURE: KNEE 4 OR MORE VIEWS 03/14/2025 REASON FOR EXAM: CHRONIC KNEE PAIN TECHNIQUE: 4 views of the right knee FINDINGS: Bones: No fracture. No suspicious bone lesion. Joints: Moderate degenerative changes. Effusion: Small joint effusion. Soft tissues: Soft tissues are unremarkable. Other: RAD/Knee 4 or More Views IMPRESSION: DEGENERATIVE OSTEOARTHROSIS. NO ACUTE FINDINGS. Reading Location: [facility] CC: Dr. Ariel Antonio DO; Dr. Amber Holman MD Basin Finish Operator Tig Welder: Signed Normal [facility] Knee 4 or More Views [facility] Imaging Services [address] [place], [place] [address] Knee 4 or More Views MR#: [id number] Acct: [id number] Name: MERLYROXI MELENDREZ Rep #: [id number] : 1965 M 59 From: Lloyd Reardon MD PCP: Dr. Amber Holman MD Status: REG CLI Study: Knee 4 or More Views Date of Exam: 03/14/25 Exam# [id number] Ordering Dr: Ariel Antonio DO PROCEDURE: KNEE 4 OR MORE VIEWS 03/14/2025 REASON FOR EXAM: CHRONIC KNEE PAIN TECHNIQUE: 4 views of the left knee FINDINGS: Bones: No fracture. No suspicious bone lesion. Joints: Moderate degenerative changes. Effusion: Small joint effusion. Soft tissues: Soft tissues are unremarkable. Other: RAD/Knee 4 or More Views IMPRESSION: DEGENERATIVE OSTEOARTHROSIS. NO ACUTE FINDINGS. Reading Location: [id number] CC: Dr. Ariel Antonio DO; Dr. Amber Holman MD Basin Finish Operator Tig Welder: Signed Normal [facility] Orthopedic Visit Reporton Orthopedic Visit Report [facility] [address] [place] [address] OFFICE VISIT Date of Service: 03/14/25 MR#: [id number] Acct: [id number] Name: ROXI MORELAND ANEESH Lewis Rep #: [id number] : 1965 Provider: Dr. Ariel gamboa DO Age/Sex: 59/M Location: [facility] Status: Signed Intake Vital Signs 03/14/25 10:39 Height 5 ft 10 in Weight: 232 lb BMI 33.3 Intake Visit Reasons: BILATERAL KNEES Chief Complaint: Bilateral knees Accompanied by: Self Is patient in pain?: Yes Pain scale (1-10): 7 Allergies Penicillins Allergy (Verified 03/14/25 10:43) Rash Medications ???Medication ???Instructions ???Recorded ???Confirmed ???Type ibuprofen 600 mg tablet 600 mg PO PRN PRN Pain 12/14/16 History hydrocodone-acetamino phen 5-325mg 1 tab PO BID PRN 03/14/25 5 History 5mg-325mg meloxicam 15 mg tablet 15 mg PO QDAY 03/14/25 03/14/25 Hi story pregabalin 150 mg capsule (Lyrica) 150 mg PO QDAY 03/14/25 03/14/25 History Have you fallen in the past year?: Yes [facility] Medical History (Updated 03/14/25 @ 11:[address] Ariel Antonio DO) Infection of left elbow Osteoarthritis Chronic headaches Cataracts, bilateral Arthritis Surgical History History of cataract surgery History of lumbar fusion Family History Other Cancer Melanoma Social History (Updated 01/29/20 @ 12:[address] Ame Goncalevs, [place]) Smoking Status: Never smoker alcohol intake: current alcohol intake frequency: holidays/special occasions only substance use type: does not use what type of physical activity do you participate in: aerobics and weight training frequency: 1-2 times per week HPI BILATERAL KNEES Details: This documentation accurately reflects the service provided and the decisions made by me, Dr. Ariel Antonio, DO 03/14/25 0756. Part of today???s visit was documented by Ary Luque MA, acting as scribe. ROXI MORELAND is a 59 year old M with medical history significant for but not limited to lumbar degenerative disc disease, here today for bilateral knee pain. He states that the right knee is worse. His left leg symptoms are most related to his lumbar radiculopathy. His right knee pain is mostly medial. He has been having pain for 5-10 years and it getting worse over time. He does have a history of a lumbar fusion and does get radiculopathy down the left leg. 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 His left leg is weaker than the right. He did have an open surgery on his right knee where they cleaned out the knee in 1978. He did have steroid injections starting in 2018. He did have gel injection in 2020. His last steroid injection was in early November of this year. Over the years he has had about 10-12 steroid injections. 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 Denies any drugs or tobacco. He has tried toys and games hand finisher bracing. Ortho Exam General General: Yes no acute distress and Yes well groomed Neurologic: Yes alert and Yes oriented x3 Psychologic: Yes reasonable and appropriate Right Knee Skin/Wound: No erythema, No ecchymosis and Yes swelling Homans Sign: No Knee ROM: Yes ROM-Extension -20 to 0 (-5) and Yes ROM-Flexion 0-140 (110) Examination: Yes Med jt line tenderness, Yes Lat jt line tenderness, Yes Crepitus, Yes Pain with flexion, Yes Pain with extention and Yes TTP Pes Anserine Stability: NML: Anterior Drawer, NML: Posterior Drawer, NML: Valgus 0, NML: Valgus 30, NML: Varus 0 and NML: Varus 30 Patella Translation: 1 Apprehension with Lateral Translation: No Patella Grind: Yes KNEE: no effusion pain with crepitation edema right leg worse than left medial scar from prior surgery no sign of infection no collateral instability Left Knee Skin/Wound: No ecchymosis, No erythema and No swelling Homans Sign: No Knee ROM: Yes ROM-Extension -20 to 0 and Yes ROM-Flexion 0-140 (118) Examination: No med jt line tenderness, No Lat jt line tenderness, Yes Crepitus, Yes Pain with flexion and No TTP Pes Anserine Stability: NML: Anterior Drawer, NML: Feliciano, NML: Posterior Drawer, NML: Valgus 0, NML: Valgus 30, NML: Varus 0 and NML: Varus 30 Patella Translation: 1 Patella Grind: Yes KNEE: no effusion Supplemental Info 03/14/2025 x-ray left knee: There is advanced medial compartment arthrosis with varus deformity there is spurring of the lateral tibial plat (more content not included)... Normal [facility] ELBOW COMPLETE MIN. 3 VIEWSo n 08-11-2023 ELBOW COMPLETE MIN. 3 VIEWS Patient Name: ROXI MORELAND STUDY: ELBOW COMPLETE MIN 3 VIEWS; 08/11/2023 2:53 pm INDICATION: Pain in left elbow. COMPARISON: No priors ACCESSION NUMBER(S): [id number] ORDERING CLINICIAN: DAVID MOJICA FINDINGS: Left elbow, three views There is no fracture. There is no dislocation. There is no joint effusion. No significant degenerative changes seen. There is severe soft tissue edema posterior to the olecranon. IMPRESSION: Severe soft tissue edema especially posterior to the olecranon suggestive of hematoma or olecranon bursitis. Underlying infectious process is also in the differential. No osseous abnormality seen. No fracture or effusion. Electronically signed by: PEDRO FLOOD MD Normal [facility] 36on 03-25-2023 36 Spoke w/the patient confirmed he will attend the scheduled Colonoscopy on 03/30/23 w/Dr. Stark. All questions/concerns answered. Normal [facility] 36on 03-19-2023 36 Patient called in to be scheduled for his screening Colonoscopy, patient was held a slot for 03.30.[address] [place] [address] Stark @ 1pm with the arrival time of 12pm. [facility] schedule updated Order submitted Open Case request submitted Case # [id number] Rx called into pharmacy Christopher Patten @ 10:11am 03.19.23 Endo packet mailed to patient Prep sent via [employer] if pt acct active Pt is aware they will need a airport driver to take them home from procedure. Must be family member or friend. They cannot use any ride programs. Ex: Uber, Lyft, SCAT, bus, etc...) Normal [facility] No Panel Informationon 03-15 Radiology Study observation (narrative) [facility] Office Visiton 03-15-2023 Follow-up visit [id number] Selvin Moreland 1965 M Date Provider Department Center 03/15/2023 ROBINA PAZ [facility] None Family History Problem Relation Age of Onset Heart disease Maternal Grandmother Obesity Maternal Grandfather Obesity Father Obesity Maternal Grandmother Heart disease Father Hypertension Father Diabetes Maternal Grandfather Heart disease Paternal Grandmother Obesity Paternal Grandmother Cancer Mother Cancer Paternal Grandfather Family Status - Relation Status Age at Maternal Grandmother Maternal Grandfather Father Alive Paternal Grandmother Mother Alive Paternal Grandfather Level of Service:85852 MA OFFICE/OUTPATIENT NEW MODERATE MDM 45-59 MINUTES Reason for Visit and Comments: New Patient [542] - Bilat knee pain Normal [facility] Progress Noteon 03-15-2023 Progress Note [facility] [address] [place] [address] [place] [id number] Dept: [phone] Dept 03/15/2023 Chief Complaint Patient presents with New Patient Bilat knee pain Subjective: Roxi is a 57 y.o. male who presents for evaluation of the bilateral knee. Right worse then right Symptoms began gradually several years ago. He describes the symptoms as aching, burning, sharp, shooting, and throbbing. The pain is diffusely around the knee. Symptoms improve with rest, heat, ice, medication: Naprosyn used but not effective. The symptoms are exacerbated by stair climbing, deep knee bending, weight bearing, walking . The knee has given out or felt unstable. The patient can bend and straighten the knee fully and does have mechanical symptoms (catching, locking). Able to walk 0 blocks and is able to use stairs. Overall, the patient feels as if this condition is severely impacting their quality of life and ability to do activities of daily living. No associated radicular pain contributing nor any radiating hip pain. Previous Surgery: Yes. Right knee scope 1982. Non-operative treatment to date has consisted of: NSAIDS: Yes Narcotics: No Therapy: None. Cortisone injections: Yes 02/26/23 Viscosupplementation: Yes Assistive Devices: None Bracing: No knee sleeves Attempted Weight Loss: No Medications reviewed. Review of Systems Constitutional: Negative for activity change. HENT: Negative for congestion. Cardiovascular: Negative for leg swelling. Musculoskeletal: Positive for arthralgias, gait problem and joint swelling. Skin: Negative for wound. Neurological: Negative for weakness. Past Medical History: Diagnosis Date Abdominal pain Adverse exposure in workplace Anesthesia complication Patient wakes up extremely anxious, feels like he can't breathe/swallow Back pain Lumbar Fusion L2 & L3 Daytime sleepiness Depression Difficulty sleeping Difficulty swallowing Fatigue History of kidney stones Joint pain, hip Joint pain, knee Morbid obesity due to excess calories (HCC) MARY treated with BiPAP faitgue Osteoarthritis Seasonal allergies Snoring SOBOE (shortness of breath on exertion) Tattoos Past Surgical History: Procedure Laterality Date APPENDECTOMY 2008 CATARACT EXTRACTION Left 2017 CATARACT EXTRACTION Right 2018 COLONOSCOPY 04/25/2019 EGD EYE SURGERY Cataract KNEE SURGERY 1982 [place] LUMBAR FUSION 2010 [place] LUMBAR FUSION 2010 [facility] Social History Socioeconomic History Marital status: Spouse name: Not on file Number of children: Not on file Years of education: Not on file Highest education level: Not on file Occupational History Not on file Tobacco Use Smoking status: Never Smokeless tobacco: Never Substance and Sexual Activity Alcohol use: Yes Drug use: No Sexual activity: Not on file Other Topics Concern Not on file Social History Narrative Not on file Social Determinants of Health Financial Resource Strain: Not on file Food Insecurity: Not on file Transportation Needs: Not on file Physical Activity: Not on file Stress: Not on file Social Connections: Not on file Intimate Partner Violence: Not on file Housing Stability: Not on file Family History Problem Relation Name Age of Onset Heart disease Maternal Grandmother Obesity Maternal Grandfather Obesity Father Obesity Maternal Grandmother Heart disease Father Hypertension Father Diabetes Maternal Grandfather Heart disease Paternal Grandmother Obesity Paternal Grandmother Cancer Mother Cancer Paternal Grandfather Allergies Allergen Reactions Penicillins Rash Other reaction(s): Rash Objective: BP 126/79 Ht 5' 10 (1.778 m) Wt 258 lb (117 kg) BMI 37.02 kg/m? Pt is a WD/WN male in no acute distress. He appears his stated age. Mood and affect are normal. He is A&O x 3. Gait: antalgic. RIGHT KNEE: Inspection shows skin is warm, dry and intact. There are scars/previous incisions, well-healed.. Alignment is significant varus. ROM shows extension is -2-3, flexion 125. The knee is stable to varus/valgus stress (<6 degrees) and is correctable. Additional findings include medial joint line tenderness and lateral joint line tenderness, no erythema. Anterior, posterior drawer negative. +PF/DF/EHL. SILT distally. DP/PT palpable. Straight leg raise negative for inciting radicular symptoms. LEFT KNEE: Inspection shows skin is warm, dry and intact. There are no obvious scars or previous incisions.. Alignment is significant varus. ROM shows extension is -1-2, flexion 125. The knee is stable to varus/valgus stress (<6 degrees) and is correctable. Additional findings include medial joint line tenderness and lateral joint line tenderness, no erythema. Anterior, posterior drawer negative. +PF/DF/EHL. SILT distally. DP/PT palpable. Strai (more content not included)... Normal [facility] XR KNEE 4+ VIEWS LEFTon 02-21 XR KNEE 4+ VIEWS LEFT Indication: Bilate ral knee pain. Exam Ordered: Radiographs of the knee include a standing anteroposterior view, a standing posteroanterior view, a lateral view in flexion, and a sunrise view. Details of Examination: Exam shows evidence of significant joint space narrowing (bone on bone) particularly in the medial compartment, significant peripheral osteophyte formation, and subchondral sclerosis; all consistent with end-stage degenerative arthritis of the knee. Significant progression from imaging in 2020. No other significant findings are noted. Impression: Degenerative Arthritis, bilateral knee. Normal [facility] XR KNEE 4+ VIEWS RIGHTon XR KNEE 4+ VIEWS RIGHT Indication: Bilat eral knee pain. Exam Ordered: Radiographs of the knee include a standing anteroposterior view, a standing posteroanterior view, a lateral view in flexion, and a sunrise view. Details of Examination: Exam shows evidence of significant joint space narrowing (bone on bone) particularly in the medial compartment, significant peripheral osteophyte formation, and subchondral sclerosis; all consistent with end-stage degenerative arthritis of the knee. Significant progression from imaging in 2020. No other significant findings are noted. Impression: Degenerative Arthritis, bilateral knee. Normal [facility] XR Knee - left 4 Viewson Indication: Bilatera l knee pain. Exam Ordered: Radiographs of the knee include a standing anteroposterior view, a standing posteroanterior view, a lateral view in flexion, and a sunrise view. Details of Examination: Exam shows evidence of significant joint space narrowing (bone on bone) particularly in the medial compartment, significant peripheral osteophyte formation, and subchondral sclerosis; all consistent with end-stage degenerative arthritis of the knee. Significant progression from imaging in 2020. No other significant findings are noted. Impression: Degenerative Arthritis, bilateral knee. [facility] XR Knee - right 4 Viewson Indication: Bilatera l knee pain. Exam Ordered: Radiographs of the knee include a standing anteroposterior view, a standing posteroanterior view, a lateral view in flexion, and a sunrise view. Details of Examination: Exam shows evidence of significant joint space narrowing (bone on bone) particularly in the medial compartment, significant peripheral osteophyte formation, and subchondral sclerosis; all consistent with end-stage degenerative arthritis of the knee. Significant progression from imaging in 2020. No other significant findings are noted. Impression: Degenerative Arthritis, bilateral knee. [facility] 36on 03-12-2023 36 Name of caller: Selvin yap (Per CRM) Contact phone number: [phone] Relationship to Patient: Patient Provider: Dr. Holman Practice: Orthopedics Chief Complaint/Reason for Call: Patient - per CRM - is asking for a Referral to [facility] for a Colorectal Screening. If appropriate, please place in Chart and advise the patient accordingly. Best time of day caller can be reached: any Patient advised that office/PCP has 24-48 business hours to return their call: No Normal [facility] Office Visiton 02-26-2023 Follow-up visit [id number] Merly,Selvin Schwartz 1965 M Date Provider Department Center 02/26/2023 [id number] HOLMAN MG FM WAD None Family History Problem Relation Age of Onset Heart disease Maternal Grandmother Obesity Maternal Grandfather Obesity Father Obesity Maternal Grandmother Heart disease Father Hypertension Father Diabetes Maternal Grandfather Heart disease Paternal Grandmother Obesity Paternal Grandmother Cancer Mother Cancer Paternal Grandfather Family Status - Relation Status Age at Maternal Grandmother Maternal Grandfather Father Alive Paternal Grandmother Mother Alive Paternal Grandfather Level of Service:17754 MA OFFICE/OUTPATIENT ESTABLISHED LOW MDM 20-29 MIN Reason for Visit and Comments: Injections [186] - Bilateral knee pain Normal [facility] PATINSon 02-26-2023 PATINS Post Cortisone Injection home going instructions The injection you have just received normally goes without incident. The injection area may be sore. It is very important that you rest the area of the injection for 24 hours after the injection. You may apply ice to the area (10 to 15 minutes every one to two hours) for the first day if you have pain or feel that you need to. The numbing medication given with the injection, can last for 1-2 hours. The actual Cortisone may take up to two to four days to take effect. And should last 6-8 weeks. 1% of the time you can get a steroid flare? to the medicine that was injected. It is more of an irritation rather than a true allergy. It is suggested that you apply ice to the affected area 20 minutes on and 20 minutes off. DO NOT APPLY THE ICE DIRECTLY TO THE SKIN. Use a thin layer (T-shirt, pillowcase, towel, etc.) to protect the skin from frostbite. This reaction can last 1-2 days and resolves spontaneously on its own. There are no long-term problems to this steroid flare, it is just a nuisance. The cortisone will still take effect and last as expected. If you develop any abnormal symptoms, such as itching, swelling, redness, rash, or shortness of breath, please call our office. Normally, these are temporary symptoms which resolve within a day but we are more than happy to answer any questions you may have. If you develop hypopigmentation or a dimple in the area near the injection this also can be a reaction to the injection. It may last several months or possibly be permanent. Let your doctor know when you see him next visit. If you do develop symptoms of a true allergy (hives, difficulty breathing, etc.) then you should go to the nearest emergency room. If your injection site becomes red, hot, painful and you develop a fever 3-5 days after the injection this could be an infection. This is serious, call the office immediately and you may be directed to the an emergency room. Normal [facility] Progress Noteon 02-26-2023 Progress Note [facility] [place] [address] [place] [address] Dept: [phone] Dept No chief complaint on file. Subjective History of Present Illness: Roxi Moreland is a 57 y.o. male who presents today for injection of bilateral knee injections. Prior targeted injections: Cortisone Fall risk assessment: Less than 65, not applicable Objective There were no vitals taken for this visit. Physical Exam: General: Alert, well appearing, no acute distress. Respiratory: Breathing comfortably on room air. No respiratory distress. Skin: Warm, dry, intact. No visible rashes or erythema overlying area of focused exam. Medial and lateral joint line tenderness knees bilaterally, negative Prudencio, negative Lockman, small effusion. External Notes No pertinent interval updates Labs No results found for: HGBA1C No results found for: CREATININE Imaging I have personally reviewed the images pertinent to the appointment today EMG/NCT N/A Procedure Procedure completed today, details below Procedure Note: We discussed risks and precautions including infection, bleeding, hypopigmentation, fat atrophy and a 1-2% chance of a steroid flare. Verbal and written consent was obtained. The bilateral knee injection site was located, confirmed and marked, it was prepped in the usual fashion with betadine and isopropyl alcohol. 2 cc of Kenalog (40mg/ml) and 4 cc of 1% lidocaine were placed in the, intra-articular, intracondylar space using a inferior lateral approach. The procedure was tolerated well. There were no complications with the injection. The injection site was bandaged. Assessment No diagnosis found. Plan We discussed osteoarthritis of the knee. We reviewed the spectrum of 1. Pills - everything from Tylenol, ibuprofen, Aleve, and pain medicines. We also discussed glucosamine/chondroit in combinations and how to perform a glucosamine trial. Additionally Tumeric can be supplemented, it is likely similar to ibuprofen and is generally safe for most people to take. Glucosamine Trial: As a treatment for arthritis, we discussed a trial of glucosamine, [id number]. We talked about using a good quality glucosamine source as the testing agent. Cosamin DS or Osteo-Bio Flex would be two of the options to pick from. Write down, using as many numbers as possible, a description of when the arthritis is symptomatic ( i.e. I can go up 1 flight of stairs before my knee hurts, I can sleep 4 hours before my knee wakes me, my knee begins to hurt me at 2 p.m. on a work day ). This documentation will be kept for comparison in 3-4 months. Take the glucosamine twice daily for 3-4 months. Comparing your symptoms sheet, and see if there is improvement. Glucosamine will work in approximately 60-65% of people. If it is helping continue the supplementation. If there is no improvement you can stop the glucosamine. 2. Physical therapy - formal physical therapy and braces. The benefits of strengthening, endurance, flexibility, balancing, and proprioception. The combination of all of these to decrease joint pain. 3. Shots - corticosteroid, hyaluronic acid, and investigational injections. We discussed the episodic nature, and Band-Aid nature of cortisone. No more frequent than every 3-4 months, the potential for cortisone to soften articular cartilage with repetitive use. And the use as a bridge agent. We also discussed hyaluronic acid injection series and the potential benefits of lubrication, nourishing the cartilage, re-booting the knee capsule and the potential for 1 year of improvement. 4. Surgery - cleanup procedures as well as total joint replacement. We discussed the need to progress through conservative measures before this is a viable option. All treatment options were discussed. All questions were answered. We will continue with prn oral medication, a glucosamine trial and a HEP. We will recheck as outlined to alter therapy as needed. Clementine Rhodes, DIONE 02/26/2023 2:38 PM Please note that portions of this note may have been completed with voice recognition software. Documentation reviewed prior to signing but minor errors in talent sourcing specialist may have occurred. Normal [facility] MRI Low Ext Joint w/o Contra st [place] 06-23-2022 MRI Low Ext Joint w/o Contrast Right Patient Name: ROXI MORELAND Magnetic Resonance Imaging ACCESSION EXAM DATE/TIME PROCEDURE ORDERING PROVIDER [id number] 06/23/2022 08:27 EDT MRI Low Ext Joint w/o AMBER HOLMAN S Contrast Right CPT code 98655 Reason For Exam (MRI Low Ext Joint w/o Contrast Right) see diagnosis Report Exam Type: MRI Low Ext Joint w/o Contrast Right Exam Date and Time: 06/23/2022 8:27 AM EDT Demographics: Gender: Male; Age: 57 years Indication: Pain; Comparison: None available TECHNIQUE: MRI of the right knee was performed using a standard non-contrast protocol in three planes (axial, sagittal, and coronal). FINDINGS: JOINT SPACE: Large joint effusion. No Tamayo's cyst. No intra-articular bodies. MEDIAL COMPARTMENT: High-grade/extensive horizontal-oblique tear of the medial meniscus body and posterior horn, with areas of both tibial and femoral articular surface contact. Partial extra-articular extrusion of the body. The posterior horn has a diminutive morphology. Essentially full-thickness chondral loss throughout the narrowed medial femorotibial joint space, especially centrally. Extensive subarticular bone marrow edema throughout the femoral condyle and to a lesser extent the peripheral tibial plateau. No discrete or displaced fracture. LATERAL COMPARTMENT: Suspected low-grade, partial-thickness tear along the femoral surface of the anterior horn (images 8-11 series 3 and 4). The remaining lateral meniscus has normal morphology and signal intensity. No full-thickness, focal cartilage defects. PATELLOFEMORAL COMPARTMENT: Full-thickness chondral loss along the medial patellar facet and apex. Partial-thickness chondral loss throughout the remaining patellofemoral compartment. No lateral patellar tilt or translation. Normal patellar and trochlear morphology. No patella armida. No edema in superolateral Hoffa's fat pad. EXTENSOR MECHANISM: The quadriceps tendon is intact. The patella tendon is intact. CRUCIATE LIGAMENTS: The anterior cruciate ligament is intact. The posterior cruciate ligament is intact. Magnetic Resonance Imaging Report COLLATERAL LIGAMENTS AND POSTEROLATERAL CORNER: The medial collateral ligament (MCL) is intact. The lateral collateral ligament (LCL) is intact. The posterolateral corner structures are intact. OSSEOUS STRUCTURES: The alignment of the osseous structures is anatomic. No discrete or displaced fracture. See above for the medial femorotibial bone marrow edema. No suspicious osseous lesions or other bone marrow signal alteration. SOFT TISSUES: No subcutaneous edema or soft tissue mass. IMPRESSION: 1. High-grade/extensive horizontal-oblique tear of the medial meniscus body and posterior horn, with areas of both tibial and femoral articular surface contact. Partial extra-articular extrusion of the body. The posterior horn has a diminutive morphology. 2. Essentially full-thickness chondral loss throughout the narrowed medial femorotibial joint space, especially centrally. 3. Extensive subarticular bone marrow edema throughout the medial femoral condyle and to a lesser extent the peripheral tibial plateau. No discrete or displaced fracture. Thyroid Suspected low-grade, partial-thickness tear along the femoral surface of the lateral meniscus anterior horn. 4. Full-thickness chondral loss along the medial patellar facet and apex. Partial-thickness chondral loss throughout the remaining patellofemoral compartment. 5. Large joint effusion. Report Dictated on Final Dictating Physician: MD PHELPS JASON Signed Date and Time: 06/23/2022 9:01 am Signed by: MD PHELPS JASON Transcribed Date and Time: 06/23/2022 9:03 Normal [facility] MRI Lower Extremity Right W JAriana SINHA Contraston 06-23-2022 Patient Name: ROXI MORELAND Magnetic Resonance Imaging ACCESSION EXAM DATE/TIME PROCEDURE ORDERING PROVIDER [id number] 06/23/2022 08:27 EDT MRI Low Ext Joint w/o AMBER HOLMAN Contrast Right CPT code 50963 Reason For Exam (MRI Low Ext Joint w/o Contrast Right) see diagnosis Report Exam Type: MRI Low Ext Joint w/o Contrast Right Exam Date and Time: 06/23/2022 8:27 AM EDT Demographics: Gender: Male; Age: 57 years Indication: Pain; Comparison: None available TECHNIQUE: MRI of the right knee was performed using a standard non-contrast protocol in three planes (axial, sagittal, and coronal). FINDINGS: JOINT SPACE: Large joint effusion. No Tamayo's cyst. No intra-articular bodies. MEDIAL COMPARTMENT: High-grade/extensive horizontal-oblique tear of the medial meniscus body and posterior horn, with areas of both tibial and femoral articular surface contact. Partial extra-articular extrusion of the body. The posterior horn has a diminutive morphology. Essentially full-thickness chondral loss throughout the narrowed medial femorotibial joint space, especially centrally. Extensive subarticular bone marrow edema throughout the femoral condyle and to a lesser extent the peripheral tibial plateau. No discrete or displaced fracture. LATERAL COMPARTMENT: Suspected low-grade, partial-thickness tear along the femoral surface of the anterior horn (images 8-11 series 3 and 4). The remaining lateral meniscus has normal morphology and signal intensity. No full-thickness, focal cartilage defects. PATELLOFEMORAL COMPARTMENT: Full-thickness chondral loss along the medial patellar facet and apex. Partial-thickness chondral loss throughout the remaining patellofemoral compartment. No lateral patellar tilt or translation. Normal patellar and trochlear morphology. No patella armida. No edema in superolateral Hoffa's fat pad. EXTENSOR MECHANISM: The quadriceps tendon is intact. The patella tendon is intact. CRUCIATE LIGAMENTS: The anterior cruciate ligament is intact. The posterior cruciate ligament is intact. Magnetic Resonance Imaging Report COLLATERAL LIGAMENTS AND POSTEROLATERAL CORNER: The medial collateral ligament (MCL) is intact. The lateral collateral ligament (LCL) is intact. The posterolateral corner structures are intact. OSSEOUS STRUCTURES: The alignment of the osseous structures is anatomic. No discrete or displaced fracture. See above for the medial femorotibial bone marrow edema. No suspicious osseous lesions or other bone marrow signal alteration. SOFT TISSUES: No subcutaneous edema or soft tissue mass. IMPRESSION: 1. High-grade/extensive horizontal-oblique tear of the medial meniscus body and posterior horn, with areas of both tibial and femoral articular surface contact. Partial extra-articular extrusion of the body. The posterior horn has a diminutive morphology. 2. Essentially full-thickness chondral loss throughout the narrowed medial femorotibial joint space, especially centrally. 3. Extensive subarticular bone marrow edema throughout the medial femoral condyle and to a lesser extent the peripheral tibial plateau. No discrete or displaced fracture. Thyroid Suspected low-grade, partial-thickness tear along the femoral surface of the lateral meniscus anterior horn. 4. Full-thickness chondral loss along the medial patellar facet and apex. Partial-thickness chondral loss throughout the remaining patellofemoral compartment. 5. Large joint effusion. Report Dictated on --- Final --- Dictating Physician: MD PHELPS JASON Signed Date and Time: 06/23/2022 9:01 am Signed by: MD PHELPS JASON Transcribed Date and Time: 06/23/2022 9:03 [facility] Brenton Phelps MD - 06/23/2022 [id number] Imaging ACCESSION EXAM DATE/TIME PROCEDURE ORDERING PROVIDER [id number] 06/23/2022 08:27 EDT MRI Low Ext Joint w/o AMBER HOLMAN Contrast Right CPT code 71249 Reason For Exam (MRI Low Ext Joint w/o Contrast Right) see diagnosis Report Exam Type: MRI Low Ext Joint w/o Contrast Right Exam Date and Time: 06/23/2022 8:27 AM EDT Demographics: Gender: Male; Age: 57 years Indication: Pain; Comparison: None available TECHNIQUE: MRI of the right knee was performed using a standard non-contrast protocol in three planes (axial, sagittal, and coronal). FINDINGS: JOINT SPACE: Large joint effusion. No Tamayo's cyst. No intra-articular bodies. MEDIAL COMPARTMENT: High-grade/extensive horizontal-oblique tear of the medial meniscus body and posterior horn, with areas of both tibial and femoral articular surface contact. Partial extra-articular extrusion of the body. The posterior horn has a diminutive morphology. Essentially full-thickness chondral loss throughout the narrowed medial femorotibial joint space, especially centrally. Extensive subarticular bone marrow edema throughout the femoral condyle and to a lesser extent the peripheral tibial plateau. No discrete or displaced fracture. LATERAL COMPARTMENT: Suspected low-grade, partial-thickness tear along the femoral surface of the anterior horn (images 8-11 series 3 and 4). The remaining lateral meniscus has normal morphology and signal intensity. No full-thickness, focal cartilage defects. PATELLOFEMORAL COMPARTMENT: Full-thickness chondral loss along the medial patellar facet and apex. Partial-thickness chondral loss throughout the remaining patellofemoral compartment. No lateral patellar tilt or translation. Normal patellar and trochlear morphology. No patella armida. No edema in superolateral Hoffa's fat pad. EXTENSOR MECHANISM: The quadriceps tendon is intact. The patella tendon is intact. CRUCIATE LIGAMENTS: The anterior cruciate ligament is intact. The posterior cruciate ligament is intact. Magnetic Resonance Imaging Report COLLATERAL LIGAMENTS AND POSTEROLATERAL CORNER: The medial collateral ligament (MCL) is intact. The lateral collateral ligament (LCL) is intact. The posterolateral corner structures are intact. OSSEOUS STRUCTURES: The alignment of the osseous structures is anatomic. No discrete or displaced fracture. See above for the medial femorotibial bone marrow edema. No suspicious osseous lesions or other bone marrow signal alteration. SOFT TISSUES: No subcutaneous edema or soft tissue mass. IMPRESSION: 1. High-grade/extensive horizontal-oblique tear of the medial meniscus body and posterior horn, with areas of both tibial and femoral articular surface contact. Partial extra-articular extrusion of the body. The posterior horn has a diminutive morphology. 2. Essentially full-thickness chondral loss throughout the narrowed medial femorotibial joint space, especially centrally. 3. Extensive subarticular bone marrow edema throughout the medial femoral condyle and to a lesser extent the peripheral tibial plateau. No discrete or displaced fracture. Thyroid Suspected low-grade, partial-thickness tear along the femoral surface of the lateral meniscus anterior horn. 4. Full-thickness chondral loss along the medial patellar facet and apex. Partial-thickness chondral loss throughout the remaining patellofemoral compartment. 5. Large joint effusion. Report Dictated on --- Final --- Dictating Physician: MD PHELPS JASON Signed Date and Time: 06/23/2022 9:01 am Signed by: MD PHELPS JASON Transcribed Date and Time: 06/23/2022 9:03 [facility] Work Phone: Radiology Study observation (narrative) [facility] Work Phone: MRI Lower Extremity Right W JT WO ContrastOrdered By: Brenton Phelps on 06-23-2022 [facility] Work Phone: XR KNEE BILATERAL STANDINGOr dered By: Amber Holman on 05-05-2021 Patient Name: ROXI MORELAND Diagnostic Radiology ACCESSION EXAM DATE/TIME PROCEDURE ORDERING PROVIDER [id number] 05/05/2021 16:15 EDT CR Knee Standing AP MANDAAMBER Crystal Bilateral CPT code 22485 Reason For Exam (CR Knee Standing AP Bilateral) Pain in right knee Report BILATERAL KNEES: CLINICAL INDICATION: Pain. TECHNIQUE: Bilateral AP weight-bearing as well as lateral and sunrise view of the right knee COMPARISON: None. FINDINGS: There is no fracture or subluxation identified on the submitted views. No significant spurring or joint space narrowing is identified. Enthesophyte projects from the anterior tibial tuberosity on the right. No bone lesion is noted. Joint effusion is noted on the right. No soft tissue abnormality is identified. IMPRESSION: Joint effusion on the right. No other significant abnormality Report Dictated on Workstation: [facility] --- Final --- Dictating Physician: MD CASTANEDA JEFFREY Signed Date and Time: 05/05/2021 9:31 pm Signed by: MD CASTANEDA JEFFREY Transcribed Date and Time: 05/05/2021 9:32 [facility] Work Phone: [facility], [facility] In[facility] Results From [facility] - 05/05/2021 9:32 PM EDT Patient Name: ROXI MORELAND Diagnostic Radiology ACCESSION EXAM DATE/TIME PROCEDURE ORDERING PROVIDER [id number] 05/05/2021 16:15 EDT CR Knee Standing AP AMBER HOLMAN Bilateral CPT code 12573 Reason For Exam (CR Knee Standing AP Bilateral) Pain in right knee Report BILATERAL KNEES: CLINICAL INDICATION: Pain. TECHNIQUE: Bilateral AP weight-bearing as well as lateral and sunrise view of the right knee COMPARISON: None. FINDINGS: There is no fracture or subluxation identified on the submitted views. No significant spurring or joint space narrowing is identified. Enthesophyte projects from the anterior tibial tuberosity on the right. No bone lesion is noted. Joint effusion is noted on the right. No soft tissue abnormality is identified. IMPRESSION: Joint effusion on the right. No other significant abnormality Report Dictated on Workstation: [email or web address] --- Final --- Dictating Physician: MD CASTANEDA JEFFREY Signed Date and Time: 05/05/2021 9:31 pm Signed by: MD CASTANEDA JEFFREY Transcribed Date and Time: 05/05/2021 9:32 [facility] Work Phone: [facility] Work Phone: XR KNEE RIGHT (1-2 VIEWS)Ord ered By: Amber Holman on 05-05-2021 Patient Name: ROXI MORELAND Diagnostic Radiology ACCESSION EXAM DATE/TIME PROCEDURE ORDERING PROVIDER [id number] 05/05/2021 16:15 EDT CR Knee 1 or 2 Views AMBER HOLMAN Right CPT code 48473 Reason For Exam (CR Knee 1 or 2 Views Right) Pain in right knee Report BILATERAL KNEES: CLINICAL INDICATION: Pain. TECHNIQUE: Bilateral AP weight-bearing as well as lateral and sunrise view of the right knee COMPARISON: None. FINDINGS: There is no fracture or subluxation identified on the submitted views. No significant spurring or joint space narrowing is identified. Enthesophyte projects from the anterior tibial tuberosity on the right. No bone lesion is noted. Joint effusion is noted on the right. No soft tissue abnormality is identified. IMPRESSION: Joint effusion on the right. No other significant abnormality Report [facility]ictated on Workstation: [email or web address] --- Final --- Dictating Physician: MD CASTANEDA JEFFREY Signed Date and Time: 05/05/2021 9:31 pm Signed by: MD CASTANEDA JEFFREY Transcribed Date and Time: 05/05/2021 9:32 [facility] Work Phone: [facility], [facility] Incoming Radiology Results From [facility] - 05/05/2021 9:32 PM EDT [facility]: [id number] ACCESSION EXAM DATE/TIME PROCEDURE ORDERING PROVIDER [id number] 05/05/2021 16:15 EDT CR Knee 1 or 2 Views AMBER HOLMAN Right CPT code 65237 Reason For Exam (CR Knee 1 or 2 Views Right) Pain in right knee Report BILATERAL KNEES: CLINICAL INDICATION: Pain. TECHNIQUE: Bilateral AP weight-bearing as well as lateral and sunrise view of the right knee COMPARISON: None. FINDINGS: There is no fracture or subluxation identified on the submitted views. No significant spurring or joint space narrowing is identified. Enthesophyte projects from the anterior tibial tuberosity on the right. No bone lesion is noted. Joint effusion is noted on the right. No soft tissue abnormality is identified. IMPRESSION: Joint effusion on the right. No other significant abnormality Report Dictated on Workstation: [facility] --- Final --- Dictating Physician: MD CASTANEDA JEFFREY Signed Date and Time: 05/05/2021 9:31 pm Signed by: MD CASTANEDA JEFFREY Transcribed Date and Time: 05/05/2021 9:32 [facility] Work Phone: [facility] Work Phone: CR Hip w/ Pelvis 2 or 3 View s Right 12-14-2019 CR Hip w/ Pelvis 2 or 3 Views Right Patient Name: ROXI MORELAND Diagnostic Radiology Exam Date/Time 12/14/2019 10:48:03 EST Exam CR Hip w/ Pelvis 2 or 3 Views Right n Ordering Physician AMBER HOLMAN Accession Number [id number] CPT4 Codes 57678 () Reason For Exam Pain in right hip Report CLINICAL INFORMATION: Chronic right hip pain. No provided history of trauma. Right hip: An AP view of the pelvis and AP and frogleg lateral views of the right hip demonstrate no evidence of acute fracture or femoral head dislocation. The right hip joint is well maintained. There is mild superior left hip joint narrowing. No bone erosion or periosteal reaction is seen. The pelvis is intact. No abnormality of the sacroiliac joints or symphysis pubis is seen. IMPRESSION: 1. No significant radiographic abnormality of the right hip. 2. Mild mild/early osteoarthritis of the left hip. Report Dictated on Workstation: [id number] Final Dictated: 12/14/2019 4:32 pm Dictating Physician: MD GALVIN HARLAN Signed Date and Time: 12/14/2019 4:33 pm Signed by: MD GALVIN HARLAN Transcribed Date and Time: 12/14/2019 4:32 Normal [facility] CR Spine Lumbosacral 2 or 3 Viewson 12-14-2019 CR Spine Lumbosacral 2 or 3 Views Patient Name: ROXI MORELAND Diagnostic Radiology Exam Date/Time 12/14/2019 10:48:03 EST Exam CR Spine Lumbosacral 2 or 3 Views Ordering Physician AMBER HOLMAN Accession Number [id number] CPT4 Codes 43261 () Reason For Exam Low back pain Report CLINICAL INFORMATION: Chronic lower back pain radiating into right hip . Prior lumbar fusion. LUMBOSACRAL SPINE, LIMITED: COMPARISON: 11/09/2016 AP and lateral views demonstrate five lumbar type vertebral bodies. There is prior L4 laminectomy with posterior instrumented fusion of L3 on L4 using bilateral pedicle screws and rods and intervertebral bone graft. The fusion hardware appears to be intact without loosening. There is no extrusion of bone graft. There is no evidence of acute fracture or compression deformity. There is intervertebral disc narrowing at L2-L3 which is progressed since the prior examination. There is mild L1-L2 intervertebral disc narrowing which appears to be stable. There are anterior marginal osteophytes at multiple levels largest at L2-L3, unchanged. There is no spondylolisthesis. The pedicles are intact at the nonfused levels. IMPRESSION: 1. Status post L4 laminectomy with posterior instrumented L3-L4 fusion, stable in appearance. 2. Progressive degenerative disc disease at L2-L3. 3. No other significant radiographic abnormality or interval change. Report Dictated on Workstation: [id number] Final Dictated: 12/14/2019 4:29 pm Dictating Physician: MD GALVIN HARLAN Signed Date and Time: 12/14/2019 4:32 pm Signed by: MD GALVIN HARLAN Transcribed Date and Time: 12/14/2019 4:29 Normal [facility] XR HIP RIGHT (2-3 VIEWS)Orde red By: Amber Holman on 12-14-2019 Patient Name: ROXI MORELAND ---Diagnostic Radiology--- Exam Date/Time 12/14/2019 10:48:03 EST Exam CR Hip w/ Pelvis 2 or 3 Views Right n Ordering Physician AMBER HOLMAN Accession Number [id number] CPT4 Codes 16827 () Reason For Exam Pain in right hip Report CLINICAL INFORMATION: Chronic right hip pain. No provided history of trauma. Right hip: An AP view of the pelvis and AP and frogleg lateral views of the right hip demonstrate no evidence of acute fracture or femoral head dislocation. The right hip joint is well maintained. There is mild superior left hip joint narrowing. No bone erosion or periosteal reaction is seen. The pelvis is intact. No abnormality of the sacroiliac joints or symphysis pubis is seen. IMPRESSION: 1. No significant radiographic abnormality of the right hip. 2. Mild mild/early osteoarthritis of the left hip. Report Dictated on Workstation: [id number] --- Final --- Dictated: 12/14/2019 4:32 pm Dictating Physician: MD GALVIN HARLAN Signed Date and Time: 12/14/2019 4:33 pm Signed by: MD GALVIN HARLAN Transcribed Date and Time: 12/14/2019 4:32 [facility] Work Phone: [facility], [facility] Incoming Radiology Results From [facility] - 12/14/2019 4:35 PM EST Patient Name: ROXI MORELAND ---Diagnostic Radiology--- Exam Date/Time 12/14/2019 10:48:03 EST Exam CR Hip w/ Pelvis 2 or 3 Views Right n Ordering Physician AMBER HOLMAN Accession Number [id number] CPT4 Codes 81300 () Reason For Exam Pain in right hip Report CLINICAL INFORMATION: Chronic right hip pain. No provided history of trauma. Right hip: An AP view of the pelvis and AP and frogleg lateral views of the right hip demonstrate no evidence of acute fracture or femoral head dislocation. The right hip joint is well maintained. There is mild superior left hip joint narrowing. No bone erosion or periosteal reaction is seen. The pelvis is intact. No abnormality of the sacroiliac joints or symphysis pubis is seen. IMPRESSION: 1. No significant radiographic abnormality of the right hip. 2. Mild mild/early osteoarthritis of the left hip. Report Dictated on Workstation: [id number] --- Final --- Dictated: 12/14/2019 4:32 pm Dictating Physician: MD GALVIN HARLAN Signed Date and Time: 12/14/2019 4:33 pm Signed by: MD GALVIN HARLAN Transcribed Date and Time: 12/14/2019 4:32 [facility] Work Phone: XR LUMBAR SPINE (2-3 VIEWS)O rdered By: Amber Holman on 12-14-2019 Patient Name: ROXI MORELAND ---Diagnostic Radiology--- Exam Date/Time 12/14/2019 10:48:03 EST Exam CR Spine Lumbosacral 2 or 3 Views Ordering Physician AMBER HOLMAN Accession Number [id number] CPT4 Codes 52593 () Reason For Exam Low back pain Report CLINICAL INFORMATION: Chronic lower back pain radiating into right hip . Prior lumbar fusion. LUMBOSACRAL SPINE, LIMITED: COMPARISON: 11/09/2016 AP and lateral views demonstrate five lumbar type vertebral bodies. There is prior L4 laminectomy with posterior instrumented fusion of L3 on L4 using bilateral pedicle screws and rods and intervertebral bone graft. The fusion hardware appears to be intact without loosening. There is no extrusion of bone graft. There is no evidence of acute fracture or compression deformity. There is intervertebral disc narrowing at L2-L3 which is progressed since the prior examination. There is mild L1-L2 intervertebral disc narrowing which appears to be stable. There are anterior marginal osteophytes at multiple levels largest at L2-L3, unchanged. There is no spondylolisthesis. The pedicles are intact at the nonfused levels. IMPRESSION: 1. Status post L4 laminectomy with posterior instrumented L3-L4 fusion, stable in appearance. 2. Progressive degenerative disc disease at L2-L3. 3. No other significant radiographic abnormality or interval change. Report Dictated on Workstation: [id number] --- Final --- Dictated: 12/14/2019 4:29 pm Dictating Physician: MD GALVIN HARLAN Signed Date and Time: 12/14/2019 4:32 pm Signed by: MD GALVIN HARLAN Transcribed Date and Time: 12/14/2019 4:29 [facility] Work Phone: [facility], [facility] Incoming Radiology Results From [facility] - 12/14/2019 4:33 PM EST Patient Name: ROXI MORELAND ---Diagnostic Radiology--- Exam Date/Time 12/14/2019 10:48:03 EST Exam CR Spine Lumbosacral 2 or 3 Views Ordering Physician AMBER HOLMAN Accession Number [id number] CPT4 Codes 71145 () Reason For Exam Low back pain Report CLINICAL INFORMATION: Chronic lower back pain radiating into right hip . Prior lumbar fusion. LUMBOSACRAL SPINE, LIMITED: COMPARISON: 11/09/2016 AP and lateral views demonstrate five lumbar type vertebral bodies. There is prior L4 laminectomy with posterior instrumented fusion of L3 on L4 using bilateral pedicle screws and rods and intervertebral bone graft. The fusion hardware appears to be intact without loosening. There is no extrusion of bone graft. There is no evidence of acute fracture or compression deformity. There is intervertebral disc narrowing at L2-L3 which is progressed since the prior examination. There is mild L1-L2 intervertebral disc narrowing which appears to be stable. There are anterior marginal osteophytes at multiple levels largest at L2-L3, unchanged. There is no spondylolisthesis. The pedicles are intact at the nonfused levels. IMPRESSION: 1. Status post L4 laminectomy with posterior instrumented L3-L4 fusion, stable in appearance. 2. Progressive degenerative disc disease at L2-L3. 3. No other significant radiographic abnormality or interval change. Report Dictated on Workstation: [id number] --- Final --- Dictated: 12/14/2019 4:29 pm Dictating Physician: MD GALVIN HARLAN Signed Date and Time: 12/14/2019 4:32 pm Signed by: MD GALVIN HARLAN Transcribed Date and Time: 12/14/2019 4:29 [facility] Work Phone: Surgical Pathologyon 019 Surgical Pathology [id number] [facility] PATHOLOGY AND LABORATORY MEDICINE [address] [place] [address] FINAL SURGICAL PATHOLOGY REPORT NAME: MERLYROXI Lana N [id number] : 1965 53 Y Doris [facility] NO.: [id number] LOCATION: 1XEO PROCEDURE 04/25/2019 DATE: SURGEON: ADILENE ZAVALA M.D. RECEIVED 04/25/2019 DATE: ATTENDING: ADILENE ZAVALA M.D. REPORT DATE: 04/26/2019 COPIES TO: DIAGNOSIS: STOMACH, ANTRUM, BIOPSY - REACTIVE GASTROPATHY COMMENT: Evaluation of the H&E-stained sections shows no evidence of Helicobacter pylori or any morphologic features to suggest infection with the organism; as such, further studies for Helicobacter are not indicated. There is no evidence of intestinal metaplasia, dysplasia or malignancy. 0SS/0SS Signature> CHRIS DIXON MD CLINICAL INFORMATION: GERD, rule out H. pylori SPECIMEN: GASTRIC BIOPSY GROSS DESCRIPTION: Antral biopsy Received in formalin is a segment of keen tissue 0.4 cm. Submitted in toto. (1 ns, 1) JCK/0RW Disclaimer: The following statement applies to all immunohistochemistry, in situ hybridization, molecular studies, and immunofluorescence testing. The use of one or more reagents in the above tests is regulated as an analyte specific reagent (ASR). These tests were developed and their performance characteristics determined by the clinical laboratories of [facility]. They have not been cleared by the US Food and Drug Administration (FDA). The FDA has determined that such clearance or approval is not necessary. All the above immunostains were performed on paraffin embedded tissue. Appropriate positive and negative controls (where applicable) were run in parallel with the patient's specimen; these controls showed expected staining pattern, with acceptable intensity of staining. Immunohistochemical assays have not been validated on decalcified tissues. Results should be interpreted with caution given the raised possibility of false negativity on decalcified specimens. Professional Performing Location: [place] [address]. DEPARTMENT OF PATHOLOGY AND LABORATORY MEDICINE [place], [place] [address] Normal [facility] Vitamin B1,Whole Bloodon Vitamin B1,Whole Blood 94 nmol/L Normal 70-180 [facility] Comment on above: Result Comment: INTE RPRETIVE INFORMATION: Vitamin B1, Whole Blood This assay measures the concentration of thiamine diphosphate (TDP), the primary active form of vitamin B1. Approximately 90 percent of vitamin B1 present in whole blood is TDP. Thiamine and thiamine monophosphate, which comprise the remaining 10 percent, are not measured. Test developed and characteristics determined by [facility]. See Compliance Statement B: [facility]/CS Performed by [facility], [address] [place] [address] [email or web address], Rhett Villalba MD - Lab. Director Performed By: #### H EMOG, LIPD2, CMP3, MG3, IRON3, TSH5, FERR3, B12, FOLT3 #### [address] #### [id number] #### [facility] [address] [place] [address] Zinc, Serumon 02-20-2019 Zinc, Serum 59 ug/dL Low 60-120 [facility] Comment on above: Result Comment: INTE RPRETIVE INFORMATION: Zinc, Serum or Plasma Circulating zinc concentrations are dependent on albumin status and are depressed with malnutrition. Zinc may also be lowered with infection, inflammation, stress, oral contraceptives, and . Zinc may be elevated with zinc supplementation or fasting. Elevated zinc concentrations may interfere with copper absorption. Test developed and characteristics determined by [facility]. See Compliance Statement B: [facility]/ Performed by [facility], [address] [place] [id number] www.[facility], Rhett Villalba MD - Lab. Director Performed By: #### H EMOG, LIPD2, CMP3, MG3, IRON3, TSH5, FERR3, B12, FOLT3 #### [address] #### [id number] #### [facility] [address] [place] [address] Comp Metabolic Panelon 02-16 Calcium [Mass/Vol] 9.3 mg/dL Normal 8.4-10.4 [facility] Comment on above: Performed By: #### H EMOG, LIPD2, CMP3, MG3, IRON3, TSH5, FERR3, B12, FOLT3 #### [facility] [address] [place], [place] #### [id number] #### [facility] [address] [place] [address] ALP [Catalytic activity/Vol] 75 U/L Normal 38-126 [facility] Comment on above: Performed By: #### H EMOG, LIPD2, CMP3, MG3, IRON3, TSH5, FERR3, B12, FOLT3 #### [address] [place], [place] #### [id number] #### [facility] [address] [place] [address] ALT [Catalytic activity/Vol] 41 U/L Normal 13-69 [facility] Comment on above: Performed By: #### H EMOG, LIPD2, CMP3, MG3, IRON3, TSH5, FERR3, B12, FOLT3 #### [place] [address] [address] [place], [place] #### [id number] #### [place] [address] [place] [address] Anion gap [Moles/Vol] 11 Normal [facility] Comment on above: Performed By: #### H EMOG, LIPD2, CMP3, MG3, IRON3, TSH5, FERR3, B12, FOLT3 #### [address] #### [id number] #### [place] [address] [place] [address] AST [Catalytic activity/Vol] 26 U/L Normal 15-46 [facility] Comment on above: Performed By: #### H EMOG, LIPD2, CMP3, MG3, IRON3, TSH5, FERR3, B12, FOLT3 #### [address] #### [id number] #### [place] [address] [place] [address] Bilirubin [Mass/Vol] 0.3 mg/dL Normal 0.2-1.3 [facility] Comment on above: Performed By: #### H EMOG, LIPD2, CMP3, MG3, IRON3, TSH5, FERR3, B12, FOLT3 #### [address] #### [id number] #### [place] [address] [place] [address] CO2 [Moles/Vol] 29 mmol/L Normal 22-30 [facility] Comment on above: Performed By: #### H EMOG, LIPD2, CMP3, MG3, IRON3, TSH5, FERR3, B12, FOLT3 #### [facility] [address] [place], [place] #### [id number] #### [facility] [address] [place] [address] Creatinine [Mass/Vol] 1.05 mg/dL Normal 0.52-1.25 [facility] Comment on above: Performed By: #### H EMOG, LIPD2, CMP3, MG3, IRON3, TSH5, FERR3, B12, FOLT3 #### [address] #### [id number] #### [facility] [address] [place] [address] GFR/1.73 sq M predicted among blacks MDRD (S/P/Bld) [Vol rate/Area] mL/min/{1.73_m2} Normal >60 [facility] Comment on above: Performed By: #### H EMOG, LIPD2, CMP3, MG3, IRON3, TSH5, FERR3, B12, FOLT3 #### [address] #### [id number] #### [facility] [address] [place] [address] GFR/1.73 sq M predicted among non-blacks MDRD (S/P/Bld) [Vol rate/Area] mL/min/{1.73_m2} Normal >60 [facility] Comment on above: Result Comment: Sour ce- MDRD equation with creatinine calibration to IDMS(NKDEP) eGFR not recommended for drug dose adjustment Performed By: #### H EMOG, LIPD2, CMP3, MG3, IRON3, TSH5, FERR3, B12, FOLT3 #### [address] #### [id number] #### [facility] [address] [place] [address] Glucose [Mass/Vol] 103 mg/dL High 70-100 [facility] Comment on above: Performed By: #### H EMOG, LIPD2, CMP3, MG3, IRON3, TSH5, FERR3, B12, FOLT3 #### [address] #### [id number] #### [facility] [address] [facility] [place] [address] Protein [Mass/Vol] 7.2 g/dL Normal 6.3-8.2 [facility] Comment on above: Performed By: #### H EMOG, LIPD2, CMP3, MG3, IRON3, TSH5, FERR3, B12, FOLT3 #### [address] #### [id number] #### [facility] [address] [facility] [place] [address] Urea nitrogen [Mass/Vol] 17 mg/dL Normal 7-20 [facility] Comment on above: Performed By: #### H EMOG, LIPD2, CMP3, MG3, IRON3, TSH5, FERR3, B12, FOLT3 #### [address] #### VD25H #### [facility] [address] [facility] [address] Potassium [Moles/Vol] 4.2 mmol/L Normal 3.5-5.1 [facility] Comment on above: Performed By: #### H EMOG, LIPD2, CMP3, MG3, IRON3, TSH5, FERR3, B12, FOLT3 #### [address] #### [id number] #### [facility] [address] [facility] [place] [address] Albumin [Mass/Vol] 4.0 g/dL Normal 3.5-5.0 [facility] Comment on above: Performed By: #### H EMOG, LIPD2, CMP3, MG3, IRON3, TSH5, FERR3, B12, FOLT3 #### [address] #### [id number] #### [facility] [address] [place] [address] Sodium [Moles/Vol] 142 mmol/L Normal 135-145 [facility] Comment on above: Performed By: #### H EMOG, LIPD2, CMP3, MG3, IRON3, TSH5, FERR3, B12, FOLT3 #### [address] #### [id number] #### [facility] [address] [place] [address] Chloride [Moles/Vol] 102 mmol/L Normal 98-107 [facility] Comment on above: Performed By: #### H EMOG, LIPD2, CMP3, MG3, IRON3, TSH5, FERR3, B12, FOLT3 #### [address] #### VD25H #### [place] [address] [place] [address] Ferritinon 02-16-2019 Ferritin [Mass/Vol] 101 ng/mL Normal 18-464 [facility] Comment on above: Performed By: #### H EMOG, LIPD2, CMP3, MG3, IRON3, TSH5, FERR3, B12, FOLT3 #### [address] #### [id number] #### [facility] [address] [place] [address] Folateon 02-16-2019 Folate 13.2 ng/mL Normal 2.8-20.0 [facility] Comment on above: Performed By: #### H EMOG, LIPD2, CMP3, MG3, IRON3, TSH5, FERR3, B12, FOLT3 #### [address] #### VD25H #### [facility] [address] [place] [address] Hemogramon 02-16-2019 Erythrocyte distribution width (RBC) [Ratio] 13.4 % Normal 11.5-14.5 [facility] Comment on above: Performed By: #### H EMOG, LIPD2, CMP3, MG3, IRON3, TSH5, FERR3, B12, FOLT3 #### [address] #### VD25H #### [facility] [address] [place] [address] Hematocrit (Bld) [Volume fraction] 40.7 % Normal 40.0-52.0 [facility] Comment on above: Performed By: #### H EMOG, LIPD2, CMP3, MG3, IRON3, TSH5, FERR3, B12, FOLT3 #### [address] #### VD25H #### [facility] [address] [place] [address] Hemoglobin (Bld) [Mass/Vol] 13.9 g/dL Normal 13.0-18.0 [facility] Comment on above: Performed By: #### H EMOG, LIPD2, CMP3, MG3, IRON3, TSH5, FERR3, B12, FOLT3 #### [address] #### VD25H #### [facility] [address] [place] [address] MCH (RBC) [Entitic mass] 30.4 pg Normal 26.0-34.0 [facility] Comment on above: Performed By: #### H EMOG, LIPD2, CMP3, MG3, IRON3, TSH5, FERR3, B12, FOLT3 #### [address] #### VD25H #### [facility] [address] [place] [address] MCHC (RBC) [Mass/Vol] 34.1 % Normal 32.0-36.0 [facility] Comment on above: Performed By: #### H EMOG, LIPD2, CMP3, MG3, IRON3, TSH5, FERR3, B12, FOLT3 #### [address] #### VD25H #### [facility] [address] [place] [address] MCV (RBC) [Entitic vol] 89.1 fL Normal 80.0-98.0 [facility] Comment on above: Performed By: #### H EMOG, LIPD2, CMP3, MG3, IRON3, TSH5, FERR3, B12, FOLT3 #### [address] #### VD25H #### [facility] [address] [place] [address] Platelet mean volume (Bld) [Entitic vol] 10.2 fL Normal 7.4-10.4 [facility] Comment on above: Performed By: #### H EMOG, LIPD2, CMP3, MG3, IRON3, TSH5, FERR3, B12, FOLT3 #### [address] #### VD25H #### [place] [address] [place] [address] Platelets (Bld) [#/Vol] 240 10*3/uL Normal 140-440 [facility] Comment on above: Performed By: #### H EMOG, LIPD2, CMP3, MG3, IRON3, TSH5, FERR3, B12, FOLT3 #### [address] #### VD25H #### [place] [address] [place] [address] RBC (Bld) [#/Vol] 4.57 10*6/uL Normal 4.40-5.90 [facility] Comment on above: Performed By: #### H EMOG, LIPD2, CMP3, MG3, IRON3, TSH5, FERR3, B12, FOLT3 #### [address] #### VD25H #### [place] [address] [place] [address] WBC (Bld) [#/Vol] 6.2 10*3/uL Normal 3.6-10.7 [facility] Comment on above: Performed By: #### H EMOG, LIPD2, CMP3, MG3, IRON3, TSH5, FERR3, B12, FOLT3 #### [facility] [address] [place], [place] #### VD25H #### [facility] [address] [place] [address] Iron, Totalon 02-16-2019 Iron, Total 64 ug/dL Normal 49-181 [facility] Comment on above: Performed By: #### H EMOG, LIPD2, CMP3, MG3, IRON3, TSH5, FERR3, B12, FOLT3 #### [facility] [address] [place], [place] #### VD25H #### [facility] [address] [place] [address] Lipid Panelon 02-16-2019 Cholesterol in HDL [Mass/Vol] 37 mg/dL Low 40-60 [facility] Comment on above: Performed By: #### H EMOG, LIPD2, CMP3, MG3, IRON3, TSH5, FERR3, B12, FOLT3 #### [address] #### VD25H #### [facility] [address] [place] [address] Cholesterol.total/Choles terol in HDL [Mass ratio] 4 Normal [facility] Comment on above: Result Comment: Ref Range: < 3 Low Risk for CHD 3-6 Mod Risk for CHD > 6 High Risk for CHD Performed By: #### H EMOG, LIPD2, CMP3, MG3, IRON3, TSH5, FERR3, B12, FOLT3 #### [address] #### VD25H #### [facility] [address] [place] [address] Protein [Mass/Vol] 100 mg/dL Abnormal <100 [facility] Comment on above: Performed By: #### H EMOG, LIPD2, CMP3, MG3, IRON3, TSH5, FERR3, B12, FOLT3 #### [address] #### VD25H #### [facility] [address] [place] [address] Triglyceride [Mass/Vol] 125 mg/dL Normal <150 [facility] Comment on above: Performed By: #### H EMOG, LIPD2, CMP3, MG3, IRON3, TSH5, FERR3, B12, FOLT3 #### [address] #### VD25H #### [place] [address] [place] [address] Cholesterol [Mass/Vol] 162 mg/dL Normal < 200 [facility] Comment on above: Performed By: #### H EMOG, LIPD2, CMP3, MG3, IRON3, TSH5, FERR3, B12, FOLT3 #### [address] #### VD25H #### [address] [place] [address] Magnesiumon 02-16-2019 Magnesium [Mass/Vol] 2.0 mg/dL Normal 1.6-2.3 [facility] Comment on above: Performed By: #### H EMOG, LIPD2, CMP3, MG3, IRON3, TSH5, FERR3, B12, FOLT3 #### [address] #### VD25H #### [address] [place] [address] Thyroid Stim. Hormoneon 01-21 Thyroid Stim. Hormone 3.093 u[IU]/mL Normal 0.465-4.68 0 [facility] Comment on above: Performed By: #### H EMOG, LIPD2, CMP3, MG3, IRON3, TSH5, FERR3, B12, FOLT3 #### [address] #### VD25H #### [place] [address] [place] [address] Vit D 25-OH, Totalon 019 Vit D 25-OH, Total 30 ng/mL Normal 30-100 [facility] Comment on above: Result Comment: Ther apy is based on measurement of Total 25-OHD with the following classification levels: Less than 20 ng/mL: Indicative of Vit D deficiency 20-30 ng/mL: Suggests Vit D insufficiency Optimal: Greater than or equal to 30 ng/mL Test performed by [employer] Competitive Immunoassay, measuring Total Vitamin D, not individual fractions. Performed By: #### H EMOG, LIPD2, CMP3, MG3, IRON3, TSH5, FERR3, B12, FOLT3 #### [facility] [address] [place] [address] #### VD25H #### [employer] [address] [place] [address] Vitamin B12on 02-16-2019 Cobalamin (Vitamin B12) [Mass/Vol] 361 pg/mL Normal [id number] [facility] Comment on above: Performed By: #### H EMOG, LIPD2, CMP3, MG3, IRON3, TSH5, FERR3, B12, FOLT3 #### [employer] [address] [place] [address] #### VD25H #### [employer] [address] [place] [address] Vital Signs Date Time Vital Sign Value Performing Clinician Samanthai venessa 05-23-2025 10:55-0400 Body height 177.[address] Amber Holman MD Work Phone: [facility] 04-10-2025 17:51-0400 Body temperature 97 [degF] Dr. Amber Holman MD Work Phone: [facility] 04-10-2025 17:51-0400 Diastolic blood pressure 80 mm[Hg] Dr. Amber Holman MD Work Phone: [facility] 04-10-2025 17:51-0400 Heart rate 80 /min Dr. Amber Holman MD Work Phone: [facility] 04-10-2025 17:51-0400 Respiratory rate 16 /min Dr. Amber Holman MD Work Phone: [facility] 04-10-2025 17:51-0400 SaO2% (BldA) [Mass fraction] 100 % Dr. Amber Holman MD Work Phone: [facility] 04-10-2025 17:51-0400 Systolic blood pressure 120 mm[Hg] Dr. Amber Holman MD Work Phone: [facility] 04-10-2025 15:20-0400 Diastolic blood pressure 78 mm[Hg] Dr. Amber Holman MD Work Phone: [phone] [place] [address] 04-10-2025 15:20-0400 Heart rate 60 /min Dr. Amber Holman MD Work Phone: [phone] [place] [address] 04-10-2025 15:20-0400 Inhaled oxygen flow rate 4 L/min Dr. Amber Holman MD Work Phone: [phone] [place] [address] 04-10-2025 15:20-0400 Respiratory rate 16 /min Dr. Amber Holman MD Work Phone: [facility] 04-10-2025 15:20-0400 SaO2% (BldA) [Mass fraction] 99 % Dr. Amber Holman MD Work Phone: [facility] 04-10-2025 15:20-0400 Systolic blood pressure 126 mm[Hg] Dr. Amber Holman MD Work Phone: [facility] 04-10-2025 09:28-0400 Body height 177.[address] Amber Holman MD Work Phone: [facility] 04-10-2025 09:28-0400 Body mass index (BMI) [Ratio] 33.8 kg/m2 Dr. Amber Holman MD Work Phone: [facility] 04-10-2025 09:28-0400 Body weight [address] Amber Holman MD Work Phone: [facility] 03-14-2025 10:39-0400 Body height 177.[address] Amber Holman MD Work Phone: [facility] 03-14-2025 10:39-0400 Body mass index (BMI) [Ratio] 33.3 kg/m2 Dr. Amber Holman MD Work Phone: [facility] 03-14-2025 10:39-0400 Body weight 105.[address] Amber Holman MD Work Phone: [facility] 01-20-2024 10:01-0500 Body height 180.3 cm Christal Mike MD Work Phone: [facility] 01-20-2024 10:01-0500 Body mass index (BMI) [Ratio] 36.96 kg/m2 Christal Mike MD Work Phone: [facility] 01-20-2024 10:01-0500 Body weight 120.2 kg Christal Mike MD Work Phone: [facility] 03-30-2023 14:02-0400 Body temperature 98.8 [degF] Veysel [employer] Work Phone: [facility] 03-30-2023 14:02-0400 Diastolic blood pressure 82 mm[Hg] Veysel Tahan Work Phone: [facility] 03-30-2023 14:02-0400 Heart rate 68 /min Veysel Tahan Work Phone: [facility] 03-30-2023 14:02-0400 Respiratory rate 18 /min Veysel Tahan Work Phone: [facility] 03-30-2023 14:02-0400 SaO2% (BldA) [Mass fraction] 98 % Veysel Tahan Work Phone: [facility] 03-30-2023 14:02-0400 Systolic blood pressure 119 mm[Hg] Veysel Tahan Work Phone: [facility] 03-30-2023 12:16-0400 Body height 177.8 cm [employer]ysel [employer] Work Phone: [facility] 03-30-2023 12:16-0400 Body mass index (BMI) [Ratio] 36.59 kg/m2 Claudette Stark Work Phone: [facility] 03-30-2023 12:16-0400 Body weight 115.67 kg Claudette Stark Work Phone: [facility] 03-15-2023 09:47-0400 Diastolic blood pressure 79 mm[Hg] Robina Pollard MD Work Phone: [facility] 03-15-2023 09:47-0400 Systolic blood pressure 126 mm[Hg] Robina Pollard MD Work Phone: [facility] 03-15-2023 09:24-0400 Body height 177.8 cm Robina Pollard MD Work Phone: [employer] [facility] 03-15-2023 09:24-0400 Body mass index (BMI) [Ratio] 37.02 kg/m2 Robina Pollard MD Work Phone: [facility] 03-15-2023 09:24-0400 Body weight 117.03 kg Robina Pollard MD Work Phone: [facility] 02-26-2023 14:39-0400 Body height 177.8 cm Amber Holman MD Work Phone: [facility] 02-26-2023 14:39-0400 Body mass index (BMI) [Ratio] 37.02 kg/m2 Amber Holman MD Work Phone: [facility] 02-26-2023 14:39-0400 Body weight 117.03 kg Amber Holman MD Work Phone: [facility] Encounters Encounter Date Encounter Type Care Provider Facility Start: 05-24-2025 ambulatory NAZANIN BACK MD~[id number] [facility] Start: 05-23-2025 End: 05-23-[address] Ariel Antonio DO [facility] Work Phone: Start: 05-23-2025 End: 05-23-[address] Amber Holman MD Work Phone: -[facility] Start: 05-17-2025 ambulatory [facility] Facility :[facility] Start: 05-17-[address] Ariel worley DO -Physical Therapy Work Phone: Start: 05-02-2025 End: 05-02-[address] Amber Holman MD Work Phone: [facility] Work Phone: Start: 05-02-2025 End: 05-02-[address] Aren Jaimes DO -Laboratory Work Phone: Start: 05-02-2025 End: 05-02-2025 [facility] Start: 04-26-2025 Encounter for other preprocedural examination [facility] Start: 04-25-2025 End: 04-25-2025 Patient encounter procedure Yolanda Palomo [facility] -[facility] Work Phone: Start: 04-25-2025 End: 04-25-[address] Amber Holman MD Work Phone: [facility] Work Phone: Start: 04-25-[address] Ariel worley DO -Physical Therapy Work Phone: Start: 04-10-2025 ambulatory [facility] Facility :[facility] Start: 04-10-2025 Non-patient / Non-visit Dr. Ariel her DO -[facility] Start: 04-10-2025 End: 04-10-2025 Admission to same day surgery center Dr. Ariel Antonio DO -Employment Specialist Work Phone: Start: 04-10-2025 End: 04-10-[address] Amber Holman MD Work Phone: [facility] Work Phone: Start: 04-03-2025 Encounter for other preprocedural examination [facility] Start: 04-03-2025 End: 04-03-[address] Amber Holman MD Work Phone: [facility] Work Phone: Start: 04-03-2025 End: 04-03-[address] Ariel Antonio DO -[facility] Work Phone: Start: 04-03-2025 End: 04-03-2025 ambulatory [facility] Start: 03-29-2025 End: 03-29-2025 Non-patient / Non-visit Dr. Aren [place] MD -[facility] Work Phone: Start: 03-29-2025 End: 03-29-[address] Amber Holman MD Work Phone: [facility] Work Phone: Start: 03-29-2025 End: 03-29-[address] Ariel Antonio DO -Laboratory Work Phone: Start: 03-28-2025 End: 03-28-[address] Ariel Antonio DO -[facility] Work Phone: Start: 03-28-2025 End: 03-29-2025 ambulatory [facility] Start: 03-14-2025 End: 03-14-[address] Ariel Antonio DO -[facility] Work Phone: Start: 03-14-2025 End: 03-14-2025 ambulatory [facility] Facility:[facility] Start: 03-14-2025 End: 03-14-2025 ambulatory [facility] Start: 03-12-2025 End: 03-12-2025 ambulatory NAZANIN BACK MD~[id number] [facility] Start: 12-12-2024 End: 12-12-2024 ambulatory BHAVANI BECKHAM MD~[id number] [facility] Start: 12-04-2024 End: 12-04-2024 ambulatory NAZANIN BACK MD~[id number] [facility] Start: 08-30-2024 End: 08-30-2024 ambulatory NAZANIN BACK MD~[id number] [facility] Start: 07-04-2024 End: 07-04-2024 ambulatory NAZANIN BACK MD~[id number] [facility] Start: 01-20-2024 End: 01-21-2024 [facility] Start: 01-20-2024 End: 01-20-2024 Office outpatient new 60 minutes Christal Mike MD Work Phone: [facility] Comment on above: Degenerative lumbar spinal stenosis (Primary Dx) Start: 08-11-[address] Amber santiago [facility] Facility:[id number] Start: 03-30-2023 End: 03-30-2023 ambulatory [facility] Start: 03-30-2023 End: 03-30-2023 Subsequent hospital visit by physician Claudette tSark Work Phone: [facility] Comment on above: Encounter for screen ing for malignant neoplasm of colon Start: 03-15-2023 End: 03-15-2023 ambulatory [facility] Start: 03-15-2023 End: 03-15-2023 ambulatory [facility] Start: 03-15-2023 End: 03-15-2023 Office outpatient new 45 minutes Robina Pollard MD Work Phone: [facility] Comment on above: Primary osteoarthrit is of both knees (Primary Dx); Pain in both knees, unspecified chronicity Start: 03-12-2023 Telephone encounter Amber zimmer MD Work Phone: [facility] Comment on above: Referral (Colorectal Screening) Start: 02-26-2023 End: 02-26-2023 ambulatory [facility] Start: 02-26-2023 End: 02-26-2023 Office outpatient visit 15 minutes Amber Holman MD Work Phone: [facility] Comment on above: Primary osteoarthrit is of both knees (Primary Dx) Start: 02-12-2023 Orders Only Amber salas MD Work Phone: [facility] Start: 06-23-2022 End: 06-23-2022 Subsequent hospital visit by physician Amber Holman MD Work Phone: [facility] Comment on above: Stress fracture of r ight tibia with delayed healing, subsequent encounter Start: 05-05-2021 End: 05-05-2021 Subsequent hospital visit by physician Amber Holman MD Work Phone: [facility] Comment on above: Acute pain of right knee Start: 12-14-2019 End: 12-14-2019 Subsequent hospital visit by physician Amber Holman MD Work Phone: [facility] Comment on above: Right hip pain; Acute midline low back pain without sciatica Procedures Date Procedure Procedure Detail Performing Clinician Start: 05-02-2025 Prostate specific an tigen measurement Dr. Amber Holman MD Work Phone: Comment on above: This test was perfor med using the [employer] tPSA method. Measured values of a patient sample can vary depending on the testing procedure used. PSA values determined on patient samples by different testing procedures cannot be used interchangeably. If there is a change in PSA assays while monitoring therapy, sequential testing should be performed to confirm baseline values. Start: 05-02-2025 Vitamin D, 25-hydrox y measurement Dr. Amber Holman MD Work Phone: Comment on above: Vitamin D StatusDefi ciency: <20 ng/mL (50nmol/L)Insufficiency: 20-30 ng/mL (50-75 nmol/L)Sufficiency: 30-100 ng/mL (75-250 nmol/L)Toxicity: >100 ng/mL (>250 nmol/L) Start: 04-10-2025 X-ray of knee, one o r two views Dr. Amber Holman MD Work Phone: Start: 04-10-2025 Total replacement of right knee joint Dr. Amber Holman MD Work Phone: Start: 04-03-2025 MRI of lower extremity Dr. Amber Holman MD Work Phone: Start: 03-29-2025 Methicillin resistan t Staphylococcus aureus screening test Dr. Amber Holman MD Work Phone: Start: 03-29-[address] Amber Holman MD Work Phone: Comment on above: Published reference interval for apparently healthysubjects between age 20 and 60 is 205 - 285 umol/L and in apoorly controlled diabetic population is 228 - 563 umol/Lwith a mean of 396 umol/L.Performed at: [address] [id number] Director: Rob Sotomayor PhD, Phone: [phone] Start: 03-14-2025 X-ray of knee, four or more views Dr. Amber Holman MD Work Phone: Start: 03-30-2023 Colonoscopy Veysel Minh an Work Phone: Start: 03-15-2023 End: 03-15-2023 Radiologic exam knee complete 4/more views Robina Pollard MD Work Phone: Start: 06-23-2022 Mri any jt lower ext rem w/o contrast matrl Amber Holman MD Work Phone: Start: 05-05-2021 Radiologic exam both knees standing anteropost Amber Holman MD Work Phone: Start: 05-05-2021 Radiologic examinati on knee 1/2 views Amber Holman MD Work Phone: Start: 12-14-2019 Radex spine lumbosac ral 2/3 views Amber Holman MD Work Phone: Plan of Treatment Date Care Activity Detail Author Start: 05-10-2033 DTaP/Tdap/Td Vaccines (3 - Td or Tdap) DTaP/Tdap/Td Vaccines (3 - Td or Tdap) [facility] Start: 03-30-2033 Screening for malignant neoplasm of colon [facility] Start: 07-09-2026 DTaP/Tdap/Td vaccine (2 - Td or Tdap) DTaP/Tdap/Td vaccine (2 - Td or Tdap) [facility] Start: 07-09-2026 DTaP/Tdap/Td Vaccines (2 - Td or Tdap) DTaP/Tdap/Td Vaccines (2 - Td or Tdap) [facility] Start: 05-23-2025 XR Knee 3 Views [facility] Start: 05-23-2025 XR knee, 3 views Knee 3 Views [facility] Start: 04-10-2025 Anesth open/surg arthrs total knee arthroplasty ANESTH KNEE ARTHROPLASTY [facility] Start: 04-10-2025 Arthrp kne condyle&platu medial&lat compartments TOTAL KNEE ARTHROPLASTY [facility] Start: 04-10-2025 Application of ice collar, cap or bag [facility] Start: 04-10-2025 Exercises [facility] Start: 04-10-2025 Incentive spirometry [facility] Start: 04-10-2025 Neurovascular assessment [facility] Start: 04-10-2025 Patient discharge [facility] Start: 04-10-2025 Patient education [facility] Start: 04-10-2025 Provision of activity privileges [facility] Start: 04-10-2025 Recommendation to continue with treatment [facility] Start: 04-10-2025 Referral to service [facility] Start: 04-10-2025 Vital signs measurements [facility] Start: 04-10-2025 Wound care [facility] Start: 04-10-2025 [facility] Start: 03-15-2025 Patient referral [facility] Work Phone: Start: 02-17-2024 Lipid panel [facility] Start: 02-17-2024 Lipid screen Lipid screen [facility] Work Phone: Start: 07-23-2023 COVID-19 Vaccine ( season) COVID-19 Vaccine ( season) [facility] Start: 07-23-2023 Influenza vaccination Influenza Vaccine (#1) [facility] Start: 03-30-2023 End: 03-30-2023 Colonoscopy flx dx w/collj spec when pfrmd COLONOSCOPY Encounter for screening for malignant neoplasm of colon 03/30/2023 1:16 PM EDT [facility] Start: 07-23-2022 Influenza vaccination [facility] Start: 05-05-2022 Depression Screen Depression Screen [facility] Start: 07-23-2021 Influenza vaccination Flu vaccine (Season Ended) [facility] Work Phone: Start: 02-27-2021 COVID-19 Vaccine (3 - Booster for Moderna series) COVID-19 Vaccine (3 - Booster for Moderna series) [facility] Start: 07-23-2019 Influenza vaccination Flu vaccine (#1) [facility] Work Phone: Start: 2015 Colon cancer screen colonoscopy Colon cancer screen colonoscopy [facility] Work Phone: Start: 2015 Screening for malignant neoplasm of colon Colon cancer screen colonoscopy [facility] Work Phone: Start: 2015 Shingles Vaccine (1 of 2) Shingles Vaccine (1 of 2) [facility] Start: 2015 Zoster Vaccines (1 of 2) Zoster Vaccines (1 of 2) [facility] Start: 2010 Screening for malignant neoplasm of colon [facility] Start: 2005 Diabetes screen Diabetes screen [facility] Work Phone: Start: 2005 Prostate specific antigen measurement Prostate Specific Antigen (PSA) Screening or Monitoring [facility] Start: 2000 Diabetes screen Diabetes screen [facility] Start: 1984 DTaP/Tdap/Td Vaccines (1 - Tdap) DTaP/Tdap/Td Vaccines (1 - Tdap) [facility] Start: 1983 Diabetes mellitus screening Diabetes Screening [facility] Start: 1983 Hepatitis C screening [facility] Start: 1980 HIV screen HIV screen [facility] Work Phone: Start: 1980 HIV screening HIV screen [facility] Start: 1977 Depression Screening Depression Screening [facility] Start: 1976 DTaP/Tdap/Td vaccine (1 - Tdap) DTaP/Tdap/Td vaccine (1 - Tdap) [facility] Work Phone: Start: 1966 MMR Vaccines (1 of 1 - Standard series) MMR Vaccines (1 of 1 - Standard series) [facility] Start: 1965 COVID-19 Vaccine (#1) COVID-19 Vaccine (#1) [facility] Start: 1965 Hepatitis B Vaccines (1 of 3 - 3-dose series) Hepatitis B Vaccines (1 of 3 - 3-dose series) [facility] Start: 1965 Hepatitis C screen Hepatitis C screen [facility] Work Phone: Start: 1965 Hepatitis C screening Hepatitis C screen [facility] Work Phone: Start: 1965 HIV screening HIV Screening [facility] Start: 1965 Lipid panel Lipid Panel [facility] Start: 1965 Screening for malignant neoplasm of colon [facility] Start: 1965 Yearly Adult Physical Yearly Adult Physical [facility] Patient referral [facility] Work Phone: Tissue exam [facility] Work Phone: Comment on above: Release Upon Ordering for 1 Occurrences starting 03/30/2023 Immunizations Immunization Date Immunization Notes Care Provider Fa [facility] 09-28-2022 Influenza, injectabl e, Madin Anabel Canine Kidney, preservative free, quadrivalent Amber Holman MD Work Phone: [facility] 09-28-2022 influenza virus vaccine, unspecified formulation Christal Mike MD Work Phone: [facility] Work Phone: 01-02-2021 Moderna SARS-CoV-2 Vaccination Amber Holman MD Work Phone: [facility] 12-05-2020 Moderna SARS-CoV-2 Vaccination Amber Holman MD Work Phone: [facility] 08-17-2019 influenza, injectabl e, quadrivalent, preservative free Dr. Amber Holman MD Work Phone: [facility] 08-17-2019 influenza, seasonal, injectable, preservative free Amber Holman MD Work Phone: [facility] 10-20-2017 influenza, injectabl e, quadrivalent, preservative free Dr. Amber Holman MD Work Phone: [facility] 10-20-2017 influenza, seasonal, injectable, preservative free Amber Holman MD Work Phone: [facility] 08-21-2016 influenza, injectabl e, quadrivalent, preservative free Dr. Amber Holman MD Work Phone: [facility] 08-21-2016 influenza, seasonal, injectable, preservative free Amber Holman MD Work Phone: [facility] 07-09-2016 tetanus toxoid, reduced diphtheria toxoid, and acellular pertussis vaccine, adsorbed Amber Holman MD Work Phone: [facility] Payers Date Payer Category Payer Self-pay 2023 Unknown [id number] 2023 Unknown [id number] 2023 Unknown [id number] 2021 Unknown [id number] 2020 Unknown [id number] 2015 Unknown [facility] xxxxxxxxxxxx 2015-Present [phone] [address] [place] [address] xxxxxxxxxxxx [id number] 1965 Unknown [id number] 1965 Unknown [id number] [id number]4 4 1965 Unknown [id number] 2.16.840.1.991859.3.579.2.598 1965 Unknown [id number] 2.840.1.178504.3.579.2.598 1965 Unknown [id number] 2.840.1.290274.3.579.2.598 1965 Unknown [id number] 2.840.1.450932.3.579.2.598 1965 Unknown [id number] 2.840.1.207633.3.579.2.598 1965 Unknown [id number] 2.840.1.715336.3.579.2.598 1959 Unknown [id number] Unknown [id number] 2.840.1.960868.3.579.2.462 Unknown [id number] 2.840.1.920388.3.579.2.462 Unknown [id number] 2.840.1.531825.3.579.2.462 Unknown [id number] 2.840.1.382636.3.579.2.462 Unknown [id number] 2.840.1.018985.3.579.2.462 Unknown [id number] 2.840.1.230251.3.579.2.462 Unknown [id number] 2.840.1.306538.3.579.2.462 Unknown [id number] 2.840.1.621520.3.579.2.462 Unknown [id number] 2.840.1.686797.3.579.2.462 Unknown [id number] 2.840.1.841671.3.579.2.462 Unknown [id number] 2.840.1.438316.3.579.2.462 Unknown [id number] 2.840.1.940063.3.579.2.462 Unknown [id number] Social History Date Type Detail Facility Start: 05-05-2021 End: 03-27-2025 Tobacco smoking status NHIS Never smoker [employer] Work Phone: Start: 02-02-2019 End: 05-05-2021 Tobacco use and exposure Never used [employer] Start: 05-05-2021 End: 03-30-2023 Alcohol intake Current drinker of alcohol (finding) [employer] Work Phone: Start: 02-02-2019 Alcohol Comment Occasionally [employer] Work Phone: Start: 1965 Sex Assigned At Not on file [employer] Work Phone: Start: 02-16-2023 End: 01-20-2024 Exposure to SARS-CoV-2 (event) Not sure [employer] Start: 03-30-2023 Alcohol Comment occ [facility] Start: 1965 Sex Assigned At Male [facility] Tobacco smoking status DCIS Tobacco smoking consumption unknown [facility] Work Phone: Gender identity Not on file [facility] Work Phone: Medical Equipment Procedure Code Equipment Code Equipment Origin al Text Equipment Identifier Dates ([id number]) Metal-backed pat jorge prosthesis [id number] FDA Start: 04-10-2025 ([id number]) Coated knee femu r prosthesis [id number] FDA Start: 04-10-2025 ([id number]) Coated knee tibi a prosthesis ()[id number] FDA Start: 04-10-2025 ([id number]) Tibial insert [id number] FDA Start: 05-20-2025 Goals Date Patient Goal Desired Activity /State Comment on above: Formatting of this n ote might be different from the original. [facility] Leadership Knee OA Goal Documentation Knee Arthritis Patient Goal: Less pain with activity and become more active daily. Comment on above: Formatting of this n ote might be different from the original. [facility] Knee OA Goal Documentation Knee Arthritis Patient Goal: Less pain with activity and become more active daily. Mental Status Date Assessment Result Facility 04-10-2025 Cognitive function Voice/Name [facility] Work Phone: Clinical Notes 02-26-2023 to 04-10-2025 Note Date & Type Note Facility 04-10-2025 Consult note [facility] 04-10-2025 Consult note Note Date/Time April 10, 2025 5:53pm [facility] Medical Records Department [address] [place] [address] Anesthesia Postop Eval II 04/10/25 1539 MR#: [id number] Acct: [id number] Name: ROXI MORELAND ANEESH Lewis Rep #:[id number] : 1965 59 From: Stewart Cee MD PCP: Dr. Aren Jaimes, DO Status:REG SDC Y Race: C Location: [place] [address] Anesthesia Postop Eval I Sum Postop Eval Completion status Anesthesia document: Postop Eval 1 completed: Yes Anesthesia Postop Eval I Summary Anesthesia Postop Eval I Summary: Anesthesia Postop Eval I: Assessment Summary 3 Airway patent Yes 04/10/25 13:43 PIANO INSTRUCTOR.SOBR Spontaneous unlabored Yes 04/10/25 13:43 PIANO INSTRUCTOR.SOBR respirations Mental status Awake,Calm 04/10/25 13:43 PIANO INSTRUCTOR.SOBR nausea No 04/10/25 13:43 PIANO INSTRUCTOR.SOBR Vomiting No 04/10/25 13:43 PIANO INSTRUCTOR.SOBR Anesthesia Postop Eval I: Fluid Summary Crystalloid volume administer 1,300 04/10/25 13:43 PIANO INSTRUCTOR.SOBR (ml) Colloids volume administered ( ml) Blood Product volume administered (ml) Total IV fluid infused 1,300 04/10/25 13:43 PIANO INSTRUCTOR.SOBR Anesthesia Postop Eval I: Summary Notes Anesthesia Complication No 04/10/25 13:43 PIANO INSTRUCTOR.SOBR Anesthesia Complication Comment: Post-operative progress note Anesthesia: Postop Eval II Evaluation Mental status: Awake Pain Level: 3 nausea: No Vomiting: No 04/10/25 1539 <Electronically signed by Stewart Cee MD > Date _ Stewart Cee MD Cosigner Signature: Date CC: ~ Signed [facility] Work Phone: 1(456) 383-314205-20-2025 Consult note Author Enzo Pendleton [facility] Note Date/Time April 10, 2025 1:43p m [facility] Medical Records Department [address] [place] [id number] Anesthesia Postop Eval I 04/10/25 1343 MR#: [id number] Acct: [id number] Name: ROXI MORELAND ANEESH Lewis Rep #:[id number] : 1965 59 From: Enzo RUSSELL PCP: Dr. Aren Jaimes, DO Status:REG SDC Y Race: C Location: [place] [address] Anesthesia: Postop Eval I Current Vital Signs Temperature: 97.6 F Pulse Rate: 71 Blood Pressure: 115/68 Respiratory Rate: 16 Pulse Ox: 97 Oxygen Delivery Method: Room Air Assessment Airway patent: Yes Spontaneous unlabored respirations: Yes Mental status: Awake and Calm nausea: No Vomiting: No Anesthesia Complication: No Fluid Hydration Crystalloid volume administer (ml): 1,300 Total IV fluid infused: 1,300 Progress Note Anesthesia document: Postop Eval 1 completed: Yes 04/10/25 1343 <Electronically signed by Enzo Pendleton CRNA> Date _ Enzo Pendleton PIANO INSTRUCTOR Cosigner Signature: Date CC: ~ Signed [facility] Work Phone: 1(326) 721-454005-20-2025 Discharge summary Author Ariel Goelcooper [facility] Note Date/Time April 10, 2025 1:28p m [facility] Medical Records Department [address] [place] [address] Instructions for Home/Discharge Instructions 04/10/25 1324 MR#: [id number] Acct: [id number] Name: ROXI MORELAND Jr. Rep #:[id number] : 1965 59 From: Ariel Antonio DO PCP: Dr. Aren Jaimes, DO Status:REG CAC Discharge Instructions Diet Discharge Diet: No restrictions Activity Weight Bearing Status: Full weight bearing Dressing / Incision Call your doctor if you observe: Shortness of breath and Chest pain Additional Dressing/Incision Instructions:: Ice and elevate lower extremities 2 weeks while not ambulating. Ambulation is encouraged. Weight bearing as tolerated. Use assistive devise for stability. Encourage FULL knee extension and flexion 1 time EVERY time you get up and down and MULTIPLE times per day. No showering until 72 hours after surgery. May begin showering postop day #3. Remove the dressing prior to shower and gently wash with warm water and antibacterial soap then pat dry and place abdominal pad (or plain gauze) and TEDhose over top. If you decide not to begin showering 72 hrs post operatively and wish to sponge bath only, then you may leave dressing undisturbed for up to 1 week, but must remove prior to first shower. Do not submerge for 3 weeks. If not showering daily after the initial dressing is removed you must clean incision and change dressing daily after the dressing comes off, must come off by 7 days postop. Do not allow animals near the incision area. Keep clean. Follow anti-coagulation recommendations as prescribed. Do not take any NSAIDs while on blood thinner. Do not take any additional narcotic pain medication other than what was prescribed on your surgery day without discussing with physician. Narcotic medication can be addictive. Do not drink alcohol while taking narcotics. Supplement narcotic prescription with acetaminophen 1000 mg 4 times a day. Start physical therapy. If you are not currently scheduled for physical therapy or you are unsure of appointment time please call office EDDIE to arrange. Call Dr. Antonio's office ) with any concerns. Follow Up Care Please Follow Up With: Ariel Antonio DO When: 2 weeks Test Results: Test results from this visit will be discussed in further detail at your follow- up appointment, if applicable. Discharge Plan Admission Primary Reason for Your Visit: Right total knee arthroplasty Attending Provider: Ariel Antonio Primary Care Provider: Aren Jaimes Instructions Print Language: Setswana Discharge Orders/Prescriptions Prescriptions: New acetaminophen 500 mg tablet 1,000 mg PO Q6H Qty: 100 0RF cephalexin 500 mg capsule 1,000 mg PO Q8H Qty: 4 0RF Rx Instructions: Take 2 tabs before you go to bed and 2 tabs after 5 AM morning after surgery when you wake up Eliquis 2.5 mg tablet 2.5 mg PO BID Qty: 28 0RF Rx Instructions: Begin morning after surgery. oxycodone 5 mg tablet 5 - 10 mg PO Q4H PRN (Reason: pain) 7 Days Qty: 60 0RF Continued pregabalin [Lyrica] 150 mg capsule 150 mg PO TID cholecalciferol (vitamin D3) [Vitamin D3] 25 mcg (1,000 unit) capsule 25 mcg PO DAILY Held meloxicam 15 mg tablet 15 mg PO QDAY Hold Instructions: May resume after completion of blood thinner if needed Discontinued hydrocodone-acetaminophen 5-325 mg tablet 1 tab PO BID PRN (Reason: pain) acetaminophen 500 mg capsule 1,000 mg PO Q6H PRN (Reason: pain) Referrals / Follow Up: Amber Holman MD [Non-Staff] - Disposition Disposition (needs filled in before D/C Order can be placed): Home, Self Care 04/10/25 1328<Electronically signed by Ariel Antonio DO>Ariel Antonio DO CC: Dr. Aren Jaimes DO ~ Signed [facility] Work Phone: 1(533) 746-838405-20-2025 Radiology Diagnostic study note [facility] Imaging Services [address] [place] [address] Knee 1 or 2 Views MR#: [id number] Acct: [id number] Name: ROXI MORELAND JrKuldip Rep #: [id number] : 1965 M 59 From: Bakari Pascual MD PCP: Dr. Aren Jaimes DO [place] [facility] [place]:Knee 1 or 2 Views Date of Exam: Exam# [id number] Ordering Dr: Ariel Antonio DO PROCEDURE: KNEE 1 OR 2 VIEWS 04/10/2025 REASON FOR EXAM: POST OP IN PACU TECHNIQUE: Right knee two views COMPARISON: None FINDINGS: There is a total knee prosthesis in position. Surgical clips and soft tissue air noted consistent with recent surgery. RAD/Knee 1 or 2 Views IMPRESSION: Hardware in position. Reading Location: [facility] CC: Dr. Ariel Antonio DO; Dr. 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: Signed [facility]05-20-2025 Consult note [facility] Medical Records Department [address] [place] [address] Anesthesia Postop Eval I 04/10/25 1343 MR#: [id number] Acct: [id number] Name: ROXI MORELAND JrKuldip Rep #:[id number] : 1965 59 From: Enzo RUSSELL PCP: Dr. Aren Jaimes DO [place] [facility] [place] Race: C Location: [place] [address] Anesthesia: Postop Eval I Current Vital Signs Temperature: 97.6 F Pulse Rate: 71 Blood Pressure: 115/68 Respiratory Rate: 16 Pulse Ox: 97 Oxygen Delivery Method: Room Air Assessment Airway patent: Yes Spontaneous unlabored respirations: Yes Mental status: Awake and Calm nausea: No Vomiting: No Anesthesia Complication: No Fluid Hydration Crystalloid volume administer (ml): 1,300 Total IV fluid infused: 1,300 Progress Note Anesthesia document: Postop Eval 1 completed: Yes 04/10/25 1343 PIANO INSTRUCTOR> Date _ Enzo Pendleton CRNA Cosigner Signature: Date CC: ~ Signed [facility]05-20-2025 Procedure note [facility] Medical Records Department [address] [place] [address] Operative Report 04/10/25 1320 MR#: [id number] Acct: [id number] Name: ROXI MORELAND Jr. Rep #:[id number] : 1965 59 From: Ariel Antonio DO PCP: Dr. Aren Jaimes DO Status:[facility] Location: [place] [address] Operative Report (Standard) Operative Information Date of Procedure: 04/10/25 Pre-Operative Diagnosis: Right knee DJD Post-Operative Diagnosis: Same Surgery/Procedure Performed: Right total knee arthroplasty packaging operator: Yes Manager Lvn: Pa Fermin Tasks completed by wheelchair van operator first responder: Opening & closing, Implanting device and Retracting Type of Anesthesia: Spinal RN Documented Start/Stop Times: Operation Date: 04/10/25 11:00 Case Time Into Pre-Op 04/10/25 09:01 Out of Pre-Op 04/10/25 10:21 Anesthesia Start 04/10/25 10:30 Into Room 04/10/25 10:30 Procedure Start 04/10/25 11:12 Procedure Start Time: 11:12 Procedure Stop Time: 13:18 Select all DRAINS/GRAFTS/IMPLANTS that apply: Prosthetic device Prosthetic device details: Sobeida triathlon Estimated Blood Loss: 150 Specimen collected: Yes Description of specimen(s) removed: Bone and soft tissue Description of surgery: Preoperative diagnosis: Right knee DJD Postoperative diagnosis: Same Procedure: Right total knee arthroplasty CT guided Robotic Assisted Implant: Sobeida triathlon press fit, femoral component size 6, tibial baseplatesize 6, asymmetric patella size 36, polyethylene X3 size 9 CS Anesthesia: Spinal with adductor canal block Tourniquet time: 12 minutes at 300 mmHg Complications: None Condition: Stable to PACU Estimated blood loss: 150 cc Line Leader Pa Fermin. My physician design assistant was a vital part of this case. He was important in appropriate retraction during the case, and protection of soft tissues during procedure. His intimateknowledge of the case and my steps aided in safe and expedient completion of the procedure as well as appropriate position of the extremity during the case. He was also vital in assisting with closure under my direct supervision. Indication for procedure: This is a 59-year-old male with long standing degenerative joint disease of the knee who has failed conservative treatment andwished to proceed with elective total knee arthroplasty. Risk benefits and alternatives were reviewed including; risk of bleeding, infection, nerveartery and tissue damage, continued pain, postoperative stiffness, venous thromboembolism, need forpostoperative rehabilitation, mechanical feel to the knee, and expected postoperative course. The pre- operative CT and templating was performed with component sizing. Procedure: The patient was met in the preoperative holding area. The operative extremity was identified by both patient and physician and was marked. Patient was met by anesthesia. An adductor canal block was placed by anesthesia postoperatively the patient was brought back to the operating room johny wheeled cart and transferred to the operating table in the supine position. Anesthesia was started. A well-padded tourniquet was placed on the operative extremity. The patient was prepped and draped in the usual sterile fashion. A timeout was called to ensure the proper patient procedure and extremity were being contemplated. An esmarch was used to exsanguinate the extremity. The tourniquet wasinflated. A 10 blade scalpel was used to make a midline incisiondown through the skin and subcutaneous tissue. Skin retractors placed. Bovie and Aquamantis were used to perform meticulous hemostasis.full-thickness flapswere elevated medial and lateral along the joint capsule. A deep blade scalpel was used to perform a medial parapatellar arthrotomy. The knee was brought to full extension. A bovie was used to release the soft tissues off the most proximal aspect of the medial tibial plateau, a three-quarter inch curved osteotome was also used in this process. The infrapatellar fat pad was excised. The suprapatellar fat pad was excised partially anteriorolateraly and portion the anterioromedial pad was elevated from the femur. At this point our intra- articular femoral array was placed at a45 degree angle proximal and posterior to the medial epicondyle. femoral checkpoint was placed at this time. Our tibial array was placed partially intra incisional 1 stab incision was made for the inf erior pin with a 15 blade scaple, and pins were placed and attached to the tibial array , tibial checkpoint was placed in the proximal tibial metaphysis. Tourniquet was let down. At this point registration march were taken throughout the knee . Once the knee was registered we then tensioned the medial and lateral ligaments in extension and 90 degrees of flexion. We then used these numbers to adjust our components within parameters to balance the knee in both flexion and extension once this was done on our monitor we then proceeded with using the robotic arm to make our tibial plateau cut, anterior and posterior chamfer and distal femur cuts. we removed the cut fragments with the use of a bovie and Neris, we did use a lamina automatic spreader operator to insure we visualized and removed all posterior osteophytes and at this time also used the Aquamantis on the posterior joint capsule. we then trialed andachieved the desired plan with a well-balanced knee. we used the green probe to ariadne the corresponding tibial rotation based on our CT template. Lug holes were drilledin the femur the tibia preparation was completed with the appropriate sized baseplate pinned based on previous rotation ariadne. An appropriate sized fin punch was used on the tibia and 4 corner drill was used for the press fit component and the patella was prepared by first using a caliper to ensure sufficient bone stock and a patellar reamer to remove the desired amount of bone. lug holes drilled for an asymmetric poly. We then br ought the knee through range of motion with excellent patellar tracking. We thoroughly irrigated the knee. Trial components were removed a posterior capsular injection was preformed with our standardcocktail. In addition the aqua Mantis was also used to aid in hemostasis. Betadine rinse was allowed to sit and washed out completely. Components were press-fit into place. Aricept rinse was then used followed by several more liters of irrigation after it was allowed to sit. The joint capsule was closed with #1 Ethibond [id number]'s in the upper part of the arthrotomy and #1 Vicryl in the lower part of the arthrotomy. , Followed by 2-0 Vicryl in the subcutaneous tissues with denny in theskin. Arrays and checkpoints were removed prior to closure all counts were correct stab incisionswere closed with a staple standard dressing in the form of Mepilex AG for the main incision and a small Mepilex over the pin holes. Thigh-high OMA hose applied over top of dressing. Patient tolerated the procedure well and was directed to PACU in stable condition . There were no intraoperative complica tions. Surgical Findings: DJD knee Complications Complications: No 04/10/25 1329 Cosigner Signature (if applicable): CC: Dr. Ariel Antonio, DO; Dr. Aren Jaimes DO~ Signed [facility]05-20-2025 Discharge summary [facility] Medical Records Department [address] [place] [address] Instructions for Home/Discharge Instructions 04/10/25 1324 MR#: [id number] Acct: [id number] Name: ROXI MORELAND JrKuldip Rep #:[id number] : 1965 59 From: Ariel Antonio DO PCP: Dr. Aren Jaimes DO Status:REG CAC Discharge Instructions Diet Discharge Diet: No restrictions Activity Weight Bearing Status: Full weight bearing Dressing / Incision Call your doctor if you observe: Shortness of breath and Chest pain Additional Dressing/Incision Instructions:: Ice and elevate lower extremities 2 weeks while not ambulating. Ambulation is encouraged. Weight bearing as tolerated. Use assistive devise for stability. Encourage FULL knee extension and flexion 1 time EVERY time you get up and down and MULTIPLE times per day. No showering until 72 hours after surgery. May begin showering postop day #3. Remove the dressing prior to shower and gently wash with warm water and antibacterial soap then pat dry and place abdominal pad (or plain gauze) and TEDhose over top. If you decide not to begin showering 72 hrs post operatively and wish to sponge bath only, then youmay leave dressing undisturbed for up to 1 week, but must remove prior to first shower. Do not submerge for 3 weeks. If not showering daily after the initial dressing is removed you must clean incision and change dressing daily after the dressing comes off, must come off by 7 days postop. Do not allow animals near the incision area. Keep clean. Follow anti-coagulation recommendations as prescribed. Do not take any NSAIDs while on blood thinner. Do not take any additional narcotic pain medication other than what was prescribed on your surgery day without discussing with physician. Narcotic medication can be addictive. Do not drink alcohol while taking narcotics. Supplement narcotic prescription with acetaminophen 1000 mg 4 times a day. Start physical therapy. If you are not currently scheduled for physical therapy or you are unsure of appointment time please call office EDDIE to arrange. Call Dr. Antonio's office ) with any concerns. Follow Up Care Please Follow Up With: Ariel Antonio DO When: 2 weeks Test Results: Test results from this visit will be discussed in further detail at your follow- up appointment, if applicable. Discharge Plan Admission Primary Reason for Your Visit: Right total knee arthroplasty Attending Provider: Ariel Antonio Primary Care Provider: Aren Jaimes Instructions Print Language: Setswana Discharge Orders/Prescriptions Prescriptions: New acetaminophen 500 mg tablet 1,000 mg PO Q6H Qty: 100 0RF cephalexin 500 mg capsule 1,000 mg PO Q8H Qty: 4 0RF Rx Instructions: Take 2 tabs before you go to bed and 2 tabs after 5 AM morning after surgery when you wake up Eliquis 2.5 mg tablet 2.5 mg PO BID Qty: 28 0RF Rx Instructions: Begin morning after surgery. oxycodone 5 mg tablet 5 - 10 mg PO Q4H PRN (Reason: pain) 7 Days Qty: 60 0RF Continued pregabalin [Lyrica] 150 mg capsule 150 mg PO TID cholecalciferol (vitamin D3) [Vitamin D3] 25 mcg (1,000 unit) capsule 25 mcg PO DAILY Held meloxicam 15 mg tablet 15 mg PO QDAY Hold Instructions: May resume after completion of blood thinner if needed Discontinued hydrocodone-acetaminophen 5-325 mg tablet 1 tab PO BID PRN (Reason: pain) acetaminophen 500 mg capsule 1,000 mg PO Q6H PRN (Reason: pain) Referrals / Follow Up: Amber Holman MD [Non-Staff] - Disposition Disposition (needs filled in before D/C Order can be placed): Home, Self Care 04/10/25 1328Joantonella Antonio DO CC: Dr. Aren Jaimes DO ~ Signed [facility]05-20-2025 History and physical note Author Ariel Antonio [facility] Note Date/Time April 10, 2025 10:11 am [facility] Medical Records Department [address] [place] [address] History & Physical Exam 04/10/25 1010 MR#: [id number] Acct: [id number] Name: ROXI MORELAND JrKuldip Rep #:[id number] : 1965 59 From: Ariel Antonio DO PCP: Dr. Aren Jaimes DO Status:[facility] Location: [place] [address] History and Physical Date of Admission: 04/10/25 [facility] [address] [place] [address] [address] [place] [address] OFFICE VISIT Date of Service: 03/14/25 MR#: [id number] Acct: [id number] Name: ROXI MORELAND Jr. Rep #: [id number] : 1965 Provider: Dr. Ariel Antonio DO Age/Sex: 59/M [place] [facility] [place] Status: Signed Intake Vital Signs 03/14/2510:39 Height 5 ft 10 in Weight: 232 lb BMI 33.3 Intake Visit Reasons: BILATERAL KNEES Chief Complaint: Bilateral knees Accompanied by: Self Is patient in pain?: Yes Pain scale (1-10): 7 Allergies Penicillins Allergy (Verified 03/14/25 10:43) Rash Medications ?Medication ?Instructions ?Recorded ?Confirmed ?Type ibuprofen 600 mg tablet 600 mg PO PRN PRN Pain 12/14/16 03/14/25 History hydrocodone-acetaminophen 5-325mg 1 tab PO BID PRN 03/14/25 03/14/25 Histo ry 5mg-325mg meloxicam 15 mg tablet 15 mg PO QDAY 03/14/25 03/14/25 History pregabalin 150 mg capsule (Lyrica) 150 mg PO QDAY 03/14/25 03/14/25 History Have you fallen in the past year?: Yes [facility] Medical History (Updated 03/14/25 @ 11:[address] Ariel Antonio DO) Infection of left elbow Osteoarthritis Chronic headaches Cataracts, bilateral Arthritis Surgical History History of cataract surgery History of lumbar fusion Family History Other Cancer Melanoma Social History (Updated 01/29/20 @ 12:[address] Ame Goncalves, [place]) Smoking Status: Never smoker alcohol intake: current alcohol intake frequency: holidays/special occasions only substance use type: does not use what type of physical activity do you participate in: aerobics and weight training frequency: 1-2 times per week HPI BILATERAL KNEES Details: This documentation accurately reflects the service provided and the decisions made by me, Dr. Ariel Antonio, DO 03/14/25 0756. Part of today?s visit was documented by Ary Luque MA, acting as scribe. ROXI MORELAND is a 59 year old M with medical history significant for but not limited to lumbar degenerative disc disease, here today for bilateral knee pain. He states that the right knee is worse. His left leg symptoms are most related to his lumbar radiculopathy. His right knee pain is mostly medial. He has been having pain for 5-10 years and it getting worse over time. He does havea history of a lumbar fusion and does get radiculopathy down the left leg. 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 His left leg is weaker than the right. He did have an open surgery on his right knee where they cleaned out the knee in 1978. He did have steroid injections starting in 2018. He did have gel injection in 2020. His last steroidinjection was in early November of this year. Over the years he has had about 10-12 steroid injections. 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 Denies any drugs or tobacco. He has tried toys and games hand finisher bracing. Ortho Exam General General: Yes no acute distress and Yes well groomed Neurologic: Yes alert and Yes oriented x3 Psychologic: Yes reasonable and appropriate Right Knee Skin/Wound: No erythema, No ecchymosis and Yes swelling Homans Sign: No Knee ROM: Yes ROM-Extension -20 to 0 (-5) and Yes ROM-Flexion 0-140 (110) Examination: Yes Med jt line tenderness, Yes Lat jt line tenderness, Yes Crepitus, Yes Pain with flexion, Yes Pain with extention and Yes TTP Pes Anserine Stability: NML: Anterior Drawer, NML: Posterior Drawer, NML: Valgus 0, NML: Valgus 30, NML: Varus 0 and NML: Varus 30 Patella Translation: 1 Apprehension with Lateral Translation: No Patella Grind: Yes KNEE: no effusion pain with crepitation edema right leg worse than left medial scar from prior surgery no sign of infection no collateral instability Head: Normocephalic Atraumatic Chest: symmetrical rise, non-labored breathing, no audible wheeze Abdomen: no guarding, non-rigid Supplemental Info 03/14/2025 x-ray left knee: There is advanced medial compartment arthrosis with varus deformity there is spurring of the lateral tibial plateau moderate patellofemoral arthrosis 03/14/2025 x-ray right knee: There is advanced medial compartment arthrosis with varus deformity there is spurring of the lateral tibial plateau moderate patellofemoral arthrosis Coding Level of Care Code Off vis,new,level 3 Diagnoses Primary osteoarthritis of right knee M17.11 Osteoarthritis type: primary Primary osteoarthritis of left knee M17.12 Osteoarthritis type: primary Chronic narcotic use F11.90 Assessment and Plan Assessment and Plan (1) Right knee DJD: Status: Acute Qualifiers: Osteoarthritis type: primary Qualified Code(s): M17.11 - Unilateral primary osteoarthritis, right knee (2) Left knee DJD: Status: Acute Qualifiers: Osteoarthritis type: primary Qualified Code(s): M17.12 - Unilateral primary osteoarthritis, left knee (3) Chronic narcotic use: Status: Chronic Orders: Orders Knee 4 or More Views Today M25.562 - Pain in left knee Knee 4 or More Views Today M25.561 - Pain in right knee Plan Patient is here today for bilateral knee pain. I did obtained and review xrays today. I educated patient that he does have advanced arthritis of both knee morein the medial compartment and patellofemoral. I spoke with patient that his treatment options are do nothing, physical therapy, gel injections, steroid injections, anti-inflammatories, or a TKA. Patient wishes to proceed with a TKA of the right knee. Patient has had trial and failure of physical therapy, steroid injection, gel injections, knee bracing and anti-inflammatories. Reviewed the pre-operative plans with the patient. Risks and benefits of the procedure were fully explained, including but not limited to infection, neurovascular injury, continued pain, arthritis, stiffness, need for further surgery, re- injury, DVT, PE, general risks of anesthesia, and loss of limb or life. The patient understands all the risks and does wish to proceed with written consent. Risks, benefits and alternatives of surgery reviewed including but not limited to bleeding, infection, nerve, artery and/or tissue damage, fracture, VTE, mechanical feel of the knee, continued pain, stiffness and expected post-operative course.?Patient does have a crown that fell off one of his teeth that is not open or infected. Patient would like to hold off on havinga new crown put on until after surgery. I would recommend patient wait until 3 months after surgery before getting the crown. We will need a dental clearance. He should plan to be off of work for 3 months. 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 I also encouraged him for preoperative therapy. I advised him that after a knee replacement he may not feel comfortable ever kneeling and if he does he should use a pad. Patient would like to do the Iovera procedure if insurance covers it. Tentative surgery date April 10, 2025 same-day surgery We did discuss MAKOplasty and will need a CT scan He will need to stop all NSAIDs 7 days prior to surgery. Plan Details Goals & Barriers: Goals Improve intersegmental motion Decrease inflammation Improve ROM Decrease pain Barriers Previous lumbar fusion at L2/L3 DDD Clinical Quality Measures Falls Risk Screening/Assistive Devices Have you fallen in the past year?: Yes 03/14/25 6223 <Electronically signed by Ariel Antonio DO> Date Ariel Antonio DO I have examined the patient and the H&P has been reviewed. There are no clinicalchanges since date of exam. 04/10/25 1011 <Electronically signed by Ariel Antonio DO> Cosigner Signature (if applicable): CC: Dr. Ariel Antonio, DO; Dr. Aren Jaimes, DO~ Signed [facility] Work Phone: 1(149) 155-774905-20-2025 Consult note Author Stewart Cee [facility] Note Date/Time April 10, 2025 9:07a m [facility] Medical Records Department [address] [place] [address] Pre-Anesthesia Evaluation 04/10/25 0906 MR#: [id number] Acct: [id number] Name: ROXI MORELAND Jr. Rep #:[id number] : 1965 59 From: Stewart Cee MD PCP: Dr. Aren Jaimes, Status:REG SDC Y Race: C Location: [place] [address] ASA Classification* ASA Classification ASA Classification: 2 Assessment & Plan Anesthesia* Anesthesia Assessment Anesthesia Assessment: Discussed sedation and/or anesthesia options, risks, benefits, and alternatives with patient/parents/legal guardian/POA. Questions invited. The patient/parents/legal guardian/POA seems to understand and agrees to proceedwith anesthesia plan. Reviewed the physical assessment, medical history, allergy history and patient home medications list prior to surgery/procedure/anesthetic and documented any changes. Performed airway and anesthesia risk assessments. Anesthesia Type Anesthesia Type: Spinal and Block Anesthesia Focused Assessment* Airway Assessment Mouth opens: >3 cm Mallampati Score: II Focused Labs Anesthesia Preop lab: CBC WBC 5.8 K/mm3 (4.4-11.0) 03/29/25 11:03/29/25 RBC 4.51 M/mm3 (4.6-6.2) L 03/29/25 11:20 03/29/25 Hgb 13.8 g/dL (13.0-16.5) 03/29/25 11:20 03/29/25 Hct 42.3 % (40-54) 03/29/25 11:03/29/25 Plt Count 252 K/mm3 (150-450) 03/29/25 11:03/29/25 CHEMISTRY Potassium 4.3 mmol/L (3.3-5.1) 03/29/25 11:20 03/29/25 Sodium 140 mmol/L (133-145) 03/29/25 11:20 03/29/25 Magnesium 2.3 mg/dL (1.5-2.2) H 03/29/25 11:20 03/29/25 Phosphorus 2.8 mg/dL (2.5-4.9) 08/07/16 15:19 08/07/16 BUN 17 mg/dL (4-19) 03/29/25 11:20 03/29/25 Creatinine 0.93 mg/dL (0.70-1.20) 03/29/25 11:20 03/29/25 Glucose 96 mg/dL (70-99) 03/29/25 11:20 03/29/25 TSH 1.73 uIU/mL (0.358-3.74) 08/14/20 13:09 COAG PT 13.8 SECONDS (11.7-14.9) 03/29/25 11:20 Pre-Assessment Diagnosis/Proposed Procedure Planned Operative Procedure(s): (R) Right Total Knee Replacement Robotic Arm Assisted, ERAS Anesthesia History Anesthesia History - rip tailer: Anesthesia History - rip tailer Hx Hospitalization No 03/27/25 09:35 Any Problems With Anesthesia Yes: states hard time 03/27/25 09:35 breathing after fusion surgery, ALSO CAN BE DIFFICULT Cholinesterase deficiency No 03/27/25 09:35 You/Your Family Experience No 03/27/25 09:35 fever (hyperthermia) with Relationship Recent Exposure to Contagious No 04/16/17 06:17 Disease Does patient have nerve No 03/27/25 09:35 stimulator Patient instructed to have device shut off --Does patient have Pacemaker or ICD? When Was Last Pacemaker Check QUESTION #4 FULL TEXT: You/Your Family Experience fever (hyperthermia) with Anesthesia Last Oral Intake Last Oral intake: Last Oral Intake NPO since Meds taken in AM with sips of water? Meds patient instructed to take am of surgery PONV PONV - rip tailer: PONV - rip tailer Female No 03/27/25 09:35 HX of Motion Sickness No 03/27/25 09:35 HX of N/V After Surgery No 03/27/25 09:35 Non-Smoker Yes 03/27/25 09:35 Duration of Surgery greater No 03/27/25 09:35 than 60 minutes Number of Risk Factors 1 03/27/25 09:35 PONV Score Low Risk 03/27/25 09:35 Height & Weight Height & Weight: Anesthesia: Height & Weight Height 5 ft 10 in 03/14/25 10:39 Respiratory Assessment Respiratory Assessment - rip tailer: Respiratory Tract Infection Hx - rip tailer Hx Respiratory Tract Infection No 03/27/25 09:35 STOP Sleep Apnea STOP Sleep Apnea - rip tailer: STOP Sleep Apnea - rip tailer Hx Hypertension No 03/27/25 09:35 Hx Sleep Apnea No 03/27/25 09:35 CPAP BIPAP Do you snore loudly (louder Yes 03/27/25 09:35 than talking or can be heard Do you often feel tired/ No 03/27/25 09:35 fatigued/ sleepy during daytime? Has anyone observed you stop No 03/27/25 09:35 breathing during sleep? STOP Results Negative 03/27/25 09:35 QUESTION #5 FULL TEXT : Do you snore loudly (louder than talking or can be heard through closed doors)? 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 Specify any problems Hx of Preganancy in last 3 N/A 03/27/25 09:35 Months Nurse Filling Out Transfusion VCHRISTIN 03/27/25 09:35 & Questions: Date: 03/27/25 03/27/25 09:35 Time: 09:44 03/27/25 09:35 Patient unable to answer at this time (ie. confused, unrespo /Reproduction History /Reproductive History - rip tailer: /Reproductive Hx- rip tailer Hx Now Gestational Age (in weeks): EDC: Hx Hx Para Hx Section SAB Active Medications Active Medications: Current Medications Generic Name Dose Route Start Last Admin Trade Name Freq PRN Reason Stop Dose Admin Acetaminophen 1,000 mg 04/10/25 11:15 Acetaminophen 500 Mg Tablet PO 04/10/25 11:16 PREOP ONE Celecoxib 400 mg 04/10/25 11:15 Celecoxib 200 Mg Capsule PO 04/10/25 11:16 PREOP ONE Dexamethasone Sodium Phosphate 10 mg 04/10/25 11:15 Dexamethasone 10 Mg/Ml Vial IV 04/10/25 11:16 INTRAOP ONE Gabapentin 600 mg 04/10/25 11:15 Gabapentin 600 Mg Tablet PO 04/10/25 11:16 PREOP ONE Tranexamic Acid 1,000 mg/ 110 mls @ 660 mls/hr 04/10/25 11:15 Sodium Chloride IV 04/10/25 11:24 INTRAOP ONE Tranexamic Acid 1,000 mg/ 110 mls @ 660 mls/hr 04/10/25 11:15 Sodium Chloride IV 04/10/25 11:24 INTRAOP ONE Lactated Ringer's 1,000 mls @ 125 mls/hr 04/10/25 11:15 IV 04/10/25 19:14 .Q8H GER Magnesium Sulfate 1 gm/ 102 mls @ 408 mls/hr 04/10/25 11:15 Dextrose IV 04/10/25 11:29 INTRAOP ONE Cefazolin Sodium 2 gm/ Sodium 110 mls @ 150 mls/hr 04/10/25 11:15 Chloride IV 04/10/25 11:58 INTRAOP ONE Lactated Ringer's 1,000 mls @ 15 mls/hr 04/10/25 09:15 IV .Q48H GER Insulin Human Lispro 1 - 6 unit 04/10/25 11:15 Insulin Lispro 100 Unit/Ml Insuln.Pen SC 04/10/25 18:00 Q4H PRN PRN BG>/= 180, SEE PROTOCOL Protocol Scopolamine HBr 1 patch 04/10/25 11:15 Scopolamine 1mg/72hr Patch TD 04/10/25 11:16 PREOP ONE PFSH Medical History Wears glasses Wears contact lenses Alcohol use Kidney stones Back pain Injury of back Injury of head and neck Non-smoker Sleep apnea History of edema History of pain when walking History of echocardiogram History of stress test Osteoarthritis Chronic headaches Cataracts, bilateral Arthritis Home Medications ?Medication ?Instructions ?Recorded ?Last Taken ?Type hydrocodone-acetaminophen 5-325mg 1 tab PO BID PRN rowdy n 03/14/25 Unknown History 5mg-325mg meloxicam 15 mg tablet 15 mg PO QDAY 03/14/25 Unkno wn History pregabalin 150 mg capsule (Lyrica) 150 mg PO TID 03/14 Unknown History acetaminophen 500 mg capsule 1,000 mg PO Q6H PRN pain 03/27/25 Unknown History cholecalciferol (vitamin D3) 25 25 mcg PO DAILY Unknown History mcg (1,000 unit) capsule (Vitamin D3) Allergy/AdvReac Type Severity Reaction Status Date / Time Penicillins Allergy Rash Verified 03/28/25 15:11 Family History Other Cancer Melanoma Surgical History Hx of elbow surgery History of rhinoplasty Hx of knee surgery Hx of appendectomy History of cataract surgery History of lumbar fusion Social History Smoking Status: Never smoker alcohol intake: current alcohol intake frequency: holidays/special occasions only substance use type: does not use what type of physical activity do you participate in: aerobics and weight training frequency: 1-2 times per week Review of Systems (Anesthesia) ROS Narrative System reviewed and no additional complaints, except as documented. 04/10/25906 <Electronically signed by Stewart Cee MD > Date _ Stewart Cee MD [facility] Signature: Date CC: ~ Signed [facility] Work Phone: 1(545) 201-442505-20-2025 History and physical note [facility] Medical Records Department [address] [place] [address] History & Physical Exam 04/10/25 1010 MR#: [id number] Acct: [id number] Name: ROXI MORELAND Jr. Rep #:[id number] : 1965 59 From: Ariel Antonio DO PCP: Dr. Aren Jaimes DO Status:[facility] Location: [place] [address] History and Physical Date of Admission: 04/10/25 [facility] [address] [place] [address] [address] [place] [address] OFFICE VISIT Date of Service: 03/14/25 MR#: [id number] Acct: [id number] Name: ROXI MORELAND Jr. Rep #: [id number] : 1965 Provider: Dr. Ariel Antonio DO Age/Sex: 59/M Location: [facility] Status: Signed Intake Vital Signs 03/14/2510:39 Height 5 ft 10 in Weight: 232 lb BMI 33.3 Intake Visit Reasons: BILATERAL KNEES Chief Complaint: Bilateral knees Accompanied by: Self Is patient in pain?: Yes Pain scale (1-10): 7 Allergies Penicillins Allergy (Verified 03/14/25 10:43) Rash Medications ?Medication ?Instructions ?Recorded ?Confirmed ?Type ibuprofen 600 mg tablet 600 mg PO PRN PRN Pain 12/14/16 03/14/25 History hydrocodone-acetaminophen 5-325mg 1 tab PO BID PRN 03/14/25 03/14/25 Histo ry 5mg-325mg meloxicam 15 mg tablet 15 mg PO QDAY 03/14/25 03/14/25 History pregabalin 150 mg capsule (Lyrica) 150 mg PO QDAY 03/14/25 03/14/25 History Have you fallen in the past year?: Yes [facility] Medical History (Updated 03/14/25 @ 11:[address] Ariel Antonio DO) Infection of left elbow Osteoarthritis Chronic headaches Cataracts, bilateral Arthritis Surgical History History of cataract surgery History of lumbar fusion Family History Other Cancer Melanoma Social History (Updated 01/29/20 @ 12:[address] Ame Goncalves, [place]) Smoking Status: Never smoker alcohol intake: current alcohol intake frequency: holidays/special occasions only substance use type: does not use what type of physical activity do you participate in: aerobics and weight training frequency: 1-2 times per week HPI BILATERAL KNEES Details: This documentation accurately reflects the service provided and the decisions made by me, Dr. Ariel Antonio, DO 03/14/25 0756. Part of today?s visit was documented by Ary Luque MA, acting as scribe. ROXI MORELAND is a 59 year old M with medical history significant for but not limited to lumbar degenerative disc disease, here today for bilateral knee pain. He states that the right knee is worse. His left leg symptoms are most related to his lumbar radiculopathy. His right knee pain is mostly medial. He has been having pain for 5-10 years and it getting worse over time. He does havea history ofa lumbar fusion and does get radiculopathy down the left leg. 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 His left leg is weaker than the right. He did have an open surgery on his right knee where they cleaned out the knee in 1978. He did have steroid injections starting in 2018. He did have gel injection in 2020. His last steroidinjection was inearly November of this year. Over the years he has had about 10-12 steroid injections. 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 Denies any drugs or tobacco. He has tried toys and games hand finisher bracing. Ortho Exam General General: Yes no acute distress and Yes well groomed Neurologic: Yes alert and Yes oriented x3 Psychologic: Yes reasonable and appropriate Right Knee Skin/Wound: No erythema, No ecchymosis and Yes swelling Homans Sign: No Knee ROM: Yes ROM-Extension -20 to 0 (-5) and Yes ROM-Flexion 0-140 (110) Examination: Yes Med jt line tenderness, Yes Lat jt line tenderness, Yes Crepitus, Yes Pain with flexion, Yes Pain with extention and Yes TTP Pes Anserine Stability: NML: Anterior Drawer, NML: Posterior Drawer, NML: Valgus 0, NML: Valgus 30, NML: Varus 0and NML: Varus 30 Patella Translation: 1 Apprehension with Lateral Translation: No Patella Grind: Yes KNEE: no effusion pain with crepitation edema right leg worse than left medial scar from prior surgery no sign of infection no collateral instability Head: Normocephalic Atraumatic Chest: symmetrical rise, non-labored breathing, no audible wheeze Abdomen: no guarding, non-rigid Supplemental Info 03/14/2025 x-ray left knee: There is advanced medial compartment arthrosis with varus deformity there is spurring of the lateral tibial plateau moderate patellofemoral arthrosis 03/14/2025 x-ray right knee: There is advanced medial compartment arthrosis with varus deformity there is spurring of the lateral tibial plateau moderate patellofemoral arthrosis Coding Level of Care Code Off vis,new,level 3 Diagnoses Primary osteoarthritis of right knee M17.11 Osteoarthritis type: primary Primary osteoarthritis of left knee M17.12 Osteoarthritis type: primary Chronic narcotic use F11.90 Assessment and Plan Assessment and Plan (1) Right knee DJD: Status: Acute Qualifiers: Osteoarthritis type: primary Qualified Code(s): M17.11 - Unilateral primary osteoarthritis, right knee (2) Left knee DJD: Status: Acute Qualifiers: Osteoarthritis type: primary Qualified Code(s): M17.12 - Unilateral primary osteoarthritis, left knee (3) Chronic narcotic use: Status: Chronic Orders: Orders Knee 4 or More Views Today M25.562 - Pain in left knee Knee 4 or More Views Today M25.561 - Pain in right knee Plan Patient is here today for bilateral knee pain. I did obtained and review xrays today. I educated patient that he does have advanced arthritis of both knee morein the medial compartment and patellofemoral. I spoke with patient that his treatment options are do nothing, physical therapy, gel injections, steroid injections, anti-inflammatories, or a TKA. Patient wishes to proceed with a TKA of the right knee. Patient has had trial and failure of physical therapy, steroid injection, gel injections,knee bracing and anti-inflammatories. Reviewed the pre-operative plans with the patient. Risks and benefits of the procedure were fully explained, including but not limited to infection, neurovascular injury, continued pain, arthritis, stiffness, need for further surgery, re-injury, DVT, PE, general risks of anesthesia, and loss of limb or life. The patient understands all the risks and does wish to proceed with written consent. Risks, benefits and alternatives of surgery reviewed including but not limited to bleeding, infection, nerve, artery and/or tissue damage, fracture, VTE, mechanical feel of the knee, continued pain, stiffness and expected post-operative course.?Patient does have a crown that fell off one of his teeth that is not open or infected. Patient would like to hold off on havinga new crown put on until after surgery. I would recommend patient wait until 3 months after surgery before getting the crown. We will need a dental clearance. He should plan to be off of work for 3 months. 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 I also encouraged him for preoperative therapy. I advised him that after a knee replacement he may not feel comfortable ever kneeling and if he does he should use a pad. Patient would like to do the Iovera procedure if insurance covers it. Tentative surgery date April 10, 2025 same-day surgery We did discuss MAKOplasty and will need a CT scan He will need to stop all NSAIDs 7 days prior to surgery. Plan Details Goals & Barriers: Goals Improve intersegmental motion Decrease inflammation Improve ROM Decrease pain Barriers Previous lumbar fusion at L2/L3 DDD Clinical Quality Measures Falls Risk Screening/Assistive Devices Have you fallen in the past year?: Yes 03/14/25 1153 Date Ariel Antonio DO I have examined the patient and the H&P has been reviewed. There are no clinicalchanges since date of exam. 04/10/25 1011 Cosigner Signature (if applicable): CC: Dr. Ariel Antonio DO; Dr. Aren Jaimes DO~ Signed [facility]05-20-2025 [facility] Medical Records Department [address] [place] [address] History Physical Exam 04/10/25 1010 MR#: [id number] Acct: [id number] Name: ROXI MORELAND JrKuldip Rep #: [id number] : 1965 59 From: Ariel Antonio DO PCP: Dr. Aren Jaimes DO [place] [facility] [address] History and Physical Date of Admission: 04/10/25 [facility] [address] [place] [address] [address] [place] [address] OFFICE VISIT Date of Service: 03/14/25 MR#: [id number] Acct: [id number] Name: ROXI MORELAND JrKuldip Rep #: [id number] : 1965 Provider: Dr. Ariel Antonio DO Age/Sex: 59/M Location[place] [facility] [place] Status: Signed Intake Vital Signs 03/14/2510:39 Height 5 ft 10 in Weight: 232 lb BMI 33.3 Intake Visit Reasons: BILATERAL KNEES Chief Complaint: Bilateral knees Accompanied by: Self Is patient in pain?: Yes Pain scale (1-10): 7 Allergies Penicillins Allergy (Verified 03/14/25 10:43) Rash Medications ???Medication ???Instructions ???Recorded ???Confirmed ???Type ibuprofen 600 mg tablet 600 mg PO PRN PRN Pain 12/14/16 03/14/25 History hydrocodone-acetaminophen 5-325mg 1 tab PO BID PRN 03/14/25 03/14/25 History 5mg-325mg meloxicam 15 mg tablet 15 mg PO QDAY 03/14/25 03/14/25 History pregabalin 150 mg capsule (Lyrica) 150 mg PO QDAY 03/14/25 03/14/25 History Have you fallen in the past year?: Yes [facility] Medical History (Updated 03/14/25 @ 11:[address] Ariel Antonio DO) Infection of left elbow Osteoarthritis Chronic headaches Cataracts, bilateral Arthritis Surgical History History of cataract surgery History of lumbar fusion Family History Other Cancer Melanoma Social History (Updated 01/29/20 @ 12:[address] Ame Goncalves, [place]) Smoking Status: Never smoker alcohol intake: current alcohol intake frequency: holidays/special occasions only substance use type: does not use what type of physical activity do you participate in: aerobics and weight training frequency: 1-2 times per week HPI BILATERAL KNEES Details: This documentation accurately reflects the service provided and the decisions made by me, Dr. Ariel Antonio, DO 03/14/25 0756. Part of today???s visit was documented by Ary Luque MA, acting as scribe. ROXI MORELAND is a 59 year old M with medical history significant for but not limited to lumbar degenerative disc disease, here today for bilateral knee pain. He states that the right knee is worse. His left leg symptoms are most related to his lumbar radiculopathy. His right knee pain is mostly medial. He has been having pain for 5-10 years and it getting worse over time. He does have a history of a lumbar fusion and does get radiculopathy down the left leg. 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 His left leg is weaker than the right. He did have an open surgery on his right knee where they cleaned out the knee in 1978. He did have steroid injections starting in 2018. He did have gel injection in 2020. His last steroid injection was in early November of this year. Over the years he has had about 10- 12 steroid injections. 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 Denies any drugs or tobacco. He has tried toys and games hand finisher bracing. Ortho Exam General General: Yes no acute distress and Yes well groomed Neurologic: Yes alert and Yes oriented x3 Psychologic: Yes reasonable and appropriate Right Knee Skin/Wound: No erythema, No ecchymosis and Yes swelling Homans Sign: No Knee ROM: Yes ROM-Extension -20 to 0 (-5) and Yes ROM-Flexion 0-140 (110) Examination: Yes Med jt line tenderness, Yes Lat jt line tenderness, Yes Crepitus, Yes Pain with flexion, Yes Pain with extention and Yes TTP Pes Anserine Stability: NML: Anterior Drawer, NML: Posterior Drawer, NML: Valgus 0, NML: Valgus 30, NML: Varus 0 and NML: Varus 30 Patella Translation: 1 Apprehension with Lateral Translation: No Patella Grind: Yes KNEE: no effusion pain with crepitation edema right leg worse than left medial scar from prior surgery no sign of infection no collateral instability Head: Normocephalic Atraumatic Chest: symmetrical rise, non-labored breathing, no audible whe (more content not included)...[facility]05-20-2025 Consult note [facility] Medical Records Department [address] [place] [address] Pre-Anesthesia Evaluation 04/10/25 0906 MR#: [id number] Acct: [id number] Name: ROXI MORELAND Jr. Rep #:[id number] : 1965 59 From: Stewart Cee MD PCP: Dr. Aren Jaimes, DO Status:REG SDC Y Race: C Location: [place] [address] ASA Classification* ASA Classification ASA Classification: 2 Assessment & Plan Anesthesia* Anesthesia Assessment Anesthesia Assessment: Discussed sedation and/or anesthesia options, risks, benefits, and alternatives with patient/parents/legal guardian/POA. Questions invited. The patient/parents/legal guardian/POA seems to understand and agrees to proceedwith anesthesia plan. Reviewed the physical assessment, medical history, allergy history and patient home medications list prior to surgery/procedure/anesthetic and documented any changes. Performed airway and anesthesia risk assessments. Anesthesia Type Anesthesia Type: Spinal and Block Anesthesia Focused Assessment* Airway Assessment Mouth opens: >3 cm Mallampati Score: II Focused Labs Anesthesia Preop lab: CBC WBC 5.8 K/mm3 (4.4-11.0) 03/29/25 11:20 03/29/25 RBC 4.51 M/mm3 (4.6-6.2) L 03/29/25 11:20 03/29/25 Hgb 13.8 g/dL (13.0-16.5) 03/29/25 11:20 03/29/25 Hct 42.3 % (40-54) 03/29/25 11:20 03/29/25 Plt Count 252 K/mm3 (150-450) 03/29/25 11:20 03/29/25 CHEMISTRY Potassium 4.3 mmol/L (3.3-5.1) 03/29/25 11:20 03/29/25 Sodium 140 mmol/L (133-145) 03/29/25 11:20 03/29/25 Magnesium 2.3 mg/dL (1.5-2.2) H 03/29/25 11:20 03/29/25 Phosphorus 2.8 mg/dL (2.5-4.9) 08/07/16 15:19 08/07/16 BUN 17 mg/dL (4-19) 03/29/25 11:20 03/29/25 Creatinine 0.93 mg/dL (0.70-1.20) 03/29/25 11:20 03/29/25 Glucose 96 mg/dL (70-99) 03/29/25 11:20 03/29/25 TSH 1.73 uIU/mL (0.358-3.74) 08/14/20 13:09 COAG PT 13.8 SECONDS (11.7-14.9) 03/29/25 11:20 Pre-Assessment Diagnosis/Proposed Procedure Planned Operative Procedure(s): (R) Right Total Knee Replacement Robotic Arm Assisted, ERAS Anesthesia History Anesthesia History - rip tailer: Anesthesia History - rip tailer Hx Hospitalization No 03/27/25 09:35 Any Problems With Anesthesia Yes: states hard time 03/27/25 09:35 breathing after fusion surgery, ALSO CAN BE DIFFICULT Cholinesterase deficiency No 03/27/25 09:35 You/Your Family Experience No 03/27/25 09:35 fever (hyperthermia) with Relationship Recent Exposure to Contagious No 04/16/17 06:17 Disease Does patient have nerve No 03/27/25 09:35 stimulator Patient instructed to have device shut off --Does patient have Pacemaker or ICD? When Was Last Pacemaker Check QUESTION #4 FULL TEXT: You/Your Family Experience fever (hyperthermia) with Anesthesia Last Oral Intake Last Oral intake: Last Oral Intake NPO since Meds taken in AM with sips of water? Meds patient instructed to take am of surgery PONV PONV - rip tailer: PONV - rip tailer Female No 03/27/25 09:35 HX of Motion Sickness No 03/27/25 09:35 HX of N/V After Surgery No 03/27/25 09:35 Non-Smoker Yes 03/27/25 09:35 Duration of Surgery greater No 03/27/25 09:35 than 60 minutes Number of Risk Factors 1 03/27/25 09:35 PONV Score Low Risk 03/27/25 09:35 Height & Weight Height & Weight: Anesthesia: Height & Weight Height 5 ft 10 in 03/14/25 10:39 Respiratory Assessment Respiratory Assessment - rip tailer: Respiratory Tract Infection Hx - rip tailer Hx Respiratory Tract Infection No 03/27/25 09:35 STOP Sleep Apnea STOP Sleep Apnea - rip tailer: STOP Sleep Apnea - rip tailer Hx Hypertension No 03/27/25 09:35 Hx Sleep Apnea No 03/27/25 09:35 CPAP BIPAP Do you snore loudly (louder Yes 03/27/25 09:35 than talking or can be heard Do you often feel tired/ No 03/27/25 09:35 fatigued/ sleepy during daytime? Has anyone observed you stop No 03/27/25 09:35 breathing during sleep? STOP Results Negative 03/27/25 09:35 QUESTION #5 FULL TEXT : Do you snore loudly (louder than talking or can be heard through closeddoors)? 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 Specify any problems Hx of Preganancy in last 3 N/A 03/27/25 09:35 Months Nurse Filling Out Transfusion VCHRISTIN 03/27/25 09:35 & Questions: Date: 03/27/25 03/27/25 09:35 Time: 09:44 03/27/25 09:35 Patient unable to answer at this time (ie. confused, unrespo /Reproduction History /Reproductive History - rip tailer: /Reproductive Hx- rip tailer Hx Now Gestational Age (in weeks): EDC: Hx Hx Para Hx Section SAB Active Medications Active Medications: Current Medications Generic Name Dose Route Start Last Admin Trade Name Freq PRN Reason Stop Dose Admin Acetaminophen 1,000 mg 04/10/25 11:15 Acetaminophen 500 Mg Tablet PO 04/10/25 11:16 PREOP ONE Celecoxib 400 mg 04/10/25 11:15 Celecoxib 200 Mg Capsule PO 04/10/25 11:16 PREOP ONE Dexamethasone Sodium Phosphate 10 mg 04/10/25 11:15 Dexamethasone 10 Mg/Ml Vial IV 04/10/25 11:16 INTRAOP ONE Gabapentin 600 mg 04/10/25 11:15 Gabapentin 600 Mg Tablet PO 04/10/25 11:16 PREOP ONE Tranexamic Acid 1,000 mg/ 110 mls @ 660 mls/hr 04/10/25 11:15 Sodium Chloride IV 04/10/25 11:24 INTRAOP ONE Tranexamic Acid 1,000 mg/ 110 mls @ 660 mls/hr 04/10/25 11:15 Sodium Chloride IV 04/10/25 11:24 INTRAOP ONE Lactated Ringer's 1,000 mls @ 125 mls/hr 04/10/25 11:15 IV 04/10/25 19:14 .Q8H GER Magnesium Sulfate 1 gm/ 102 mls @ 408 mls/hr 04/10/25 11:15 Dextrose IV 04/10/25 11:29 INTRAOP ONE Cefazolin Sodium 2 gm/ Sodium 110 mls @ 150 mls/hr 04/10/25 11:15 Chloride IV 04/10/25 11:58 INTRAOP ONE Lactated Ringer's 1,000 mls @ 15 mls/hr 04/10/25 09:15 IV .Q48H GER Insulin Human Lispro 1 - 6 unit 04/10/25 11:15 Insulin Lispro 100 Unit/Ml Insuln.Pen SC 04/10/25 18:00 Q4H PRN PRN BG>/= 180, SEE PROTOCOL Protocol Scopolamine HBr 1 patch 04/10/25 11:15 Scopolamine 1mg/72hr Patch TD 04/10/25 11:16 PREOP ONE PFSH Medical History Wears glasses Wears contact lenses Alcohol use Kidney stones Back pain Injury of back Injury of head and neck Non-smoker Sleep apnea History of edema History of pain when walking History of echocardiogram History of stress test Osteoarthritis Chronic headaches Cataracts, bilateral Arthritis Home Medications ?Medication ?Instructions ?Recorded ?Last Taken ?Type hydrocodone-acetaminophen 5-325mg 1 tab PO BID PRN rowdy n 03/14/25 Unknown History 5mg-325mg meloxicam 15 mg tablet 15 mg PO QDAY 03/14/25 Unkno wn History pregabalin 150 mg capsule (Lyrica) 150 mg PO TID 03/14 Unknown History acetaminophen 500 mg capsule 1,000 mg PO Q6H PRN pain 03/27/25 Unknown History cholecalciferol (vitamin D3) 25 25 mcg PO DAILY Unknown History mcg (1,000 unit) capsule (Vitamin D3) Allergy/AdvReac Type Severity Reaction Status Date / Time Penicillins Allergy Rash Verified 03/28/25 15:11 Family History Other Cancer Melanoma Surgical History Hx of elbow surgery History of rhinoplasty Hx of knee surgery Hx of appendectomy History of cataract surgery History of lumbar fusion Social History Smoking Status: Never smoker alcohol intake: current alcohol intake frequency: holidays/special occasions only substance use type: does not use what type of physical activity do you participate in: aerobics and weight training frequency: 1-2 times per week Review of Systems (Anesthesia) ROS Narrative System reviewed and no additional complaints, except as documented. 04/10/25 0907 > Date _ Stewart Baker Signature: Date CC: ~ Signed [facility]05-13-2025 Radiology Diagnostic study note [facility] Imaging Services [address] [place] [address] Extremity Lower without Contra MR#: [id number] Acct: [id number] Name: ROXI MORELAND JrKuldip Rep #: [id number] : 1965 M 59 From: Darion Morley MD PCP: Dr. Aren Jaimes DO Status: REG CLI Study:Extremity Lower without Contra Date of Exam: 04/03/25 Exam# [id number] Ordering Dr: Ariel Antonio DO PROCEDURE: EXTREMITY LOWER WITHOUT CONTRA 04/03/2025 REASON FOR EXAM: TEMPLATING FOR RIGHT TKA Enrique protocol. TECHNIQUE: Axial CT images of the right lower extremity obtained without intravenous contrast. Coronal and Sagittal reconstruction series were provided. One or more dose reduction techniques were used (e.g., Automated exposure control, adjustment of the mA and/or kV according to patient size, use of iterative reconstruction technique). RADIATION DOSE SUMMARY: CTDlvol: 19 mGy DLP: 1419.78 mGycm COMPARISON: None FINDINGS: Bones: No evidence of fracture. Joints: Imaging of the right hip joint was obtained. There is marked degree of of the prior knee joint with moderate degree of osteoarthritis of the patellofemoral joint. Imaging of the ankle joint was obtained. No significantabnormality is seen. Soft Tissues: Tiny right knee joint effusion. CT/Extremity Lower without Contra IMPRESSION: Osteoarthritis of the right knee joint as described for Enrique protocol. Reading Location: [facility] CC: Dr. Ariel Antonio, DO; Dr. 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: Signed [facility]04-23-2025 Evaluation note* Diagnosis Onset Date Resolution Status Admit Date Left knee DJD acute March 14, 2025 10:01am Right knee DJD acute February 10:01am Chronic narcotic use chronic Apri l 2024 10:01am Right knee pain acute March 28, 2025 3:06pm [facility] Work Phone: 1(778) 239-988304-23-2025 Evaluation note* Diagnosis Onset Date Resolution Status Admit Date Left knee DJD acute March 14, 2025 10:01am Right knee DJD acute February 10:01am Chronic narcotic use chronic Apri l 2024 10:01am Right knee pain acute March 28, 2025 3:06pm Right knee DJD acute April 25, 2025 10:28am Total knee replacement status acute April 25, 2025 10:28am [facility] Work Phone: 1(563) 173-288102-29-2024 History of Present illness Narrative* Christal Mike MD - 01/20/2024 10:00 AM EST Roxi is a 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 He is referred by several of his colleagues. He had a remote L3-4 decompression and fusion by Dr. Luke Duran in 2010 that he did very well with. He has had intermittent low back problems over time. However, in August last year, he developed rather severe and persistent radiating left leg pain. He was hospitalized in August with left olecranon bursitis that required surgical debridement. Theinfecting organism was MRSA. He recovered from this but around that time developed rather severe radiating left leg pain. 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 Since that time, he has been involved in a therapy program on his own doing primarily Doug typeexercises. Attempted but that caused mental change. He currently is on. He has had 2 injections that provided transient relief. His general health is excellent. His is also and dog handler or trainer and she joins us via family, social, and medical histories are obtained and reviewed. Cell phone to participate in the discussion. Family, social, and medical histories are obtained and reviewed. 30-point, patient-recorded Review of Systems is personally obtained and reviewed. Inclusive is no history of weight loss, change in appetite, recent change in activity level, change in bowel or bladder habits, fevers, chills, malaise, or night pain. On exam husky appearing man no acute distress. He has a long midline lumbar scar. Limited flexion. Painless motion both hips. Strength is intact on the right. On the left he does have weakness in ankle dorsiflexion, 3/5. No hyperreflexia. Plain films show pedicle screw instrumentation at L3-4 with a healed interbody fusion. No looseningof his instrumentation. He has a very degenerative L2-3 disc space above this. He has a slight anterolisthesis of L4 on 5 that increases with flexion. The disc space at L5-S1 is fairly well-preserved. His MRI shows mild stenosis at L4-5 but there is significant fluid within both facet joints at L4-5. L5-S1 there is a large synovial cyst emanating from the left-sided L5-S1 facet joint and this causes significant lateral recess stenosis. There is quite a bit of fluid and again degenerative changes, obviously, at that left L5-S1 facet joint. Impression: He has become persistently symptomatic with severe left lumbar radiculopathy over the last 5 months. His symptoms correlate with the L5-S1 neural compression. He has had appropriate treatment at this point. We have discussed the different treatment options both surgical and nonsurgical. He certainly couldcontinue with an exercise program, use further anti- inflammatories, and work on weight reduction. Alternatively, surgery is an option for him. It would be elective. There would be 2 options surgically. One option would be a relatively straightforward laminotomy and removal of the synovial cyst at L5-S1. I would not recommend this approach. With his underlying facet arthrosis, I think there would be a high likelihood of recurrence or potentially instability. Aswell, he has a spondylolisthesis at the intervening L4-5 level and there is some stenosis associated with this. As such, my surgical approach would include a decompression at the L4-5 level and L5-S1with removal of the synovial cyst on the left and extension of his fusion from L3 to the sacrum with a TLIF at both L4-5 and L5-S1. Obviously, this would be a significant undertaking for him. However, if he chose surgery, I would take that approach to give him the best opportunity of relief of his disabling left lumbar radiculopathy and lessen the likelihood of recurring symptoms in the future. Certainly would be reasonable to obtain other surgical opinions given his somewhat unusual appearance. He has a good understanding of this. He will keep me updated on his progress and I would be happy to see him back as needed. Dictated with voice recognition software and not immediately reviewed for errors in grammar and/or spelling documented in this encounterUniversity [facility]als [facility] Work Phone: 1(993) 726-715805-09-2023 NotePatient: Jc Moreland Procedure Summary Date: 03/30/23 Room / Location: [place] [address] / [facility] Gastroenterology Anesthesia Start: 1316 Anesthesia Stop: 1345 Procedure: COLONOSCOPY Diagnosis: Encounter for screening for malignant neoplasm of colon (Encounter for screening for malignant neoplasm of colon [Z12.11]) Providers: Claudette Stark Responsible Provider: Venancio Velásquez Jr., MD Anesthesia Type: TIVA ASA Status: 3 Anesthesia Type: TIVA Vitals Value Taken Time BP 119/82 03/30/23 1402 Temp 37.1 ?C (98.8 ?F) 03/30/23 1402 Pulse 68 03/30/23 1402 Resp 18 03/30/23 1402 SpO2 98 % 03/30/23 1402 Anesthesia Post Evaluation Patient location during evaluation: PACU Patient participation: complete - patient participated Level of consciousness: awake and alert Pain management: satisfactory to patient Airway patency: patent Dental Injury: no Cardiovascular status: acceptable, blood pressure returned to baseline and hemodynamically stable Respiratory status: acceptable and spontaneous ventilation Hydration status: euvolemic Nausea/Vomiting: controlled No notable events documented. Patient can be discharged once all PACU criteria has been met.[facility] [id number] NotePatient: Jc Moreland Procedure Summary Date: 03/30/23 Room / Location: [place] [address] / [facility] Gastroenterology Anesthesia Start: 1316 Anesthesia Stop: 1345 Procedure: COLONOSCOPY Diagnosis: Encounter for screening for malignant neoplasm of colon (Encounter for screening for malignant neoplasm of colon [Z12.11]) Providers: Claudette Stark Responsible Provider: Venancio Velásquez Jr., MD Anesthesia Type: TIVA ASA Status: 3 Anesthesia Type: TIVA Vitals Value Taken Time BP 117/71 03/30/23 1342 Temp 37.1 ?C (98.8 ?F) 03/30/23 1342 Pulse 61 03/30/23 1342 Resp 16 03/30/23 1342 SpO2 95 % 03/30/23 1342 Anesthesia Post Evaluation Patient location during evaluation: PACU Patient participation: complete - patient participated Level of consciousness: awake and alert Pain score: 0 Pain management: satisfactory to patient Multimodal analgesia pain management approach Airway patency: patent Two or more strategies used to mitigate risk of obstructive sleep apnea Cardiovascular status: acceptable and hemodynamically stable Respiratory status: acceptable Hydration status: acceptable No notable events documented. MIPS #430 PONV Patient did not receive an inhalational anesthetic (XX430) MIPS # 424 Perioperative Temperature Management Anesthesia time was less than 60 minutes (4256F) MIPS #477 Multimodal Pain Management Not emergent case Patient was not administered multimodal pain management (G2149) Patient reports no pain in PACU (G2149) MIPS #404 Anesthesiology Smoking Abstinence The patient is not a current smoker (e.g. cigarette, cigar, pipe, e-cigarette/vaping/marijuana) If no stop here (XX404) I completed my handoff to the receiving clinician during which we: 1. Identified the patient 2. Identified the responsible provider 3. Reviewed the pertinent medical history 4. Discussed the surgical course 5. Reviewed intra-op anesthesia management and issues during anesthesia 6. Set expectations for post-procedure period 7. Allowed opportunity for questions and acknowledgement of understanding.[facility] [id number] NoteGASTROENTEROLOGY PHYSICIAN PRE PROCEDURE NOTE HPI: Roxi Moreland is a 57 y.o. male who is here today for planned endoscopic examination. All: Allergies Allergen Reactions Penicillins Rash Other reaction(s): Rash Meds: No current facility-administered medications on file prior to encounter. Current Outpatient Medications on File Prior to Encounter Medication Sig Dispense Refill meloxicam (Mobic) 15 MG tablet Take 1 tablet (15 mg) by mouth daily. 30 tablet 11 naproxen (Naprosyn) 250 MG tablet Take by mouth. rizatriptan CASINO OPERATIONS SUPERVISOR (Maxalt-CASINO OPERATIONS SUPERVISOR) 10 MG disintegrating tablet Take 1 tablet (10 mg) by mouth Once as needed for migraine. May repeat in 2 hours if unresolved. Do not exceed 30 mg in 24 hours. 9 tablet 1 PMH: Past Medical History: Diagnosis Date Abdominal pain Adverse exposure in workplace Anesthesia complication Patient wakes up extremely anxious, feels like he can't breathe/swallow Back pain Lumbar Fusion L2 & L3 Daytime sleepiness Depression Difficulty sleeping Difficulty swallowing Fatigue History of kidney stones Joint pain, hip Joint pain, knee Morbid obesity due to excess calories (HCC) MARY treated with BiPAP faitgue Osteoarthritis Seasonal allergies Snoring SOBOE (shortness of breath on exertion) Tattoos No reactions to anesthesia in the past. Airway patent PE: VS: BP (!) 168/89 Pulse 65 Temp 36.1 ?C (97 ?F) (Temporal) Resp 20 Ht 5' 10 (1.778 m) Wt 255 lb (116 kg) SpO2 98% BMI 36.59 kg/m? Body mass index is 36.59 kg/m?. General: Patient in no distress CVS: Regular rate & rhythm Respiratory: Clear to auscultation Abdomen: soft and non tender ASA score : 3 ASSESSMENT & PLAN: Risks & benefits of the endoscopic procedure(s) and MAC /GA sedation were personally explained to patient / family along with alternatives to the procedure in detail including radiological and surgical options. The risks of the endoscopic procedure include but are not limited to risk from anesthesia, respiratory failure, infection, bleeding, perforation, pancreatitis with its sequelae , damage to the adjacent organs, missed lesions and need for further procedure, surgery or interventional radiological intervention, from procedure or complications. We made a shared decision to proceed with planned procedure []EGD [x]Colonoscopy []EGD&Colonoscopy Claudette Stark MD [facility] [id number] NotePatient: Jc Lana Moreland Procedure Information Date/Time: 03/30/23 1300 Procedure: COLONOSCOPY - Colonoscopy 45min Location: [place] [address] / [facility] Gastroenterology Providers: Claudette Stark Relevant Problems Anesthesia (+) MARY treated with BiPAP Pulmonary (+) MARY treated with BiPAP (+) SOBOE (shortness of breath on exertion) Past Medical History: Past Medical History: No date: Abdominal pain No date: Adverse exposure in workplace No date: Anesthesia complication Comment: Patient wakes up extremely anxious, feels like he can't breathe/swallow No date: Back pain Comment: Lumbar Fusion L2 & L3 No date: Daytime sleepiness No date: Depression No date: Difficulty sleeping No date: Difficulty swallowing No date: Fatigue No date: History of kidney stones No date: Joint pain, hip No date: Joint pain, knee No date: Morbid obesity due to excess calories (HCC) faitgue: MARY treated with BiPAP No date: Osteoarthritis No date: Seasonal allergies No date: Snoring No date: SOBOE (shortness of breath on exertion) No date: Tattoos Past Surgical History: Past Surgical History: 2008: APPENDECTOMY 2017: CATARACT EXTRACTION; Left 2018: CATARACT EXTRACTION; Right 04/25/2019: COLONOSCOPY Comment: EGD 03/30/2023: COLONOSCOPY; N/A Comment: Performed by Claudette Stark at [facility] ENDOSCOPY No date: EYE SURGERY Comment: Cataract 1982: KNEE SURGERY Comment: [facility] 2011: LUMBAR FUSION Comment: [facility] 2010: LUMBAR FUSION Comment: [facility] Social History: TOBACCO: reports that he has never smoked. He has never used smokeless tobacco. ETOH: reports current alcohol use. Social History Substance and Sexual Activity Drug Use No Family History: Family History Problem Relation Name Age of Onset ? Heart disease Maternal Grandmother ? Obesity Maternal Grandfather ? Obesity Father ? Obesity Maternal Grandmother ? Heart disease Father ? Hypertension Father ? Diabetes Maternal Grandfather ? Heart disease Paternal Grandmother ? Obesity Paternal Grandmother ? Cancer Mother ? Cancer Paternal Grandfather Screening: unknown Clinical information reviewed: Tobacco Allergies Meds Problems Med Hx Surg Hx Fam Hx Soc Hx Physical Exam Airway Mallampati: II TM distance: >3 FB Neck ROM: full Mouth Open: normalendotracheal tube not in place Cardiovascular Dental dentition normal Pulmonary Abdominal Anesthesia Plan ASA 3 TIVA The patient is not a current smoker. Anesthetic plan and risks discussed with patient. patient is NPO Pt states he took barely a sip of H20 at 1130, otherwise last clears were at 0815 (prep) MARY Screening Labs: No results found for: WBC, HGB, HCT, MCV, PLT No results found for: NA, K, CL, CO2, BUN, CREATININE, GLUCOSE, CALCIUM, PROT, BILIRUBINFL, ALKPHOS, AST, ALT, EGFR, GLOB No echocardiogram results found for the past 14 days 05/03/19 (Final)[facility]05-09-2023 History and physical note* Claudette Stark - 03/30/2023 12:57 PM EDT GASTROENTEROLOGY PHYSICIAN PRE PROCEDURE NOTE HPI: Roxi Moreland is a 57 y.o. male who is here today for planned endoscopic examination. All: Allergies Allergen Reactions Penicillins Rash Other reaction(s): Rash Meds: No current facility-administered medications on file prior to encounter. Current Outpatient Medications on File Prior to Encounter Medication Sig Dispense Refill meloxicam (Mobic) 15 MG tablet Take 1 tablet (15 mg) by mouth daily. 30 tablet 11 naproxen (Naprosyn) 250 MG tablet Take by mouth. rizatriptan [employer] (Maxalt-[employer] SUPERVISOR) 10 MG disintegrating tablet Take 1 tablet (10 mg) by mouth Once as needed for migraine. May repeat in 2 hours if unresolved. Do not exceed 30 mg in 24 hours. 9 tablet 1 PMH: Past Medical History: Diagnosis Date Abdominal pain Adverse exposure in workplace Anesthesia complication Patient wakes up extremely anxious, feels like he can't breathe/swallow Back pain Lumbar Fusion L2 & L3 Daytime sleepiness Depression Difficulty sleeping Difficulty swallowing Fatigue History of kidney stones Joint pain, hip Joint pain, knee Morbid obesity due to excess calories (HCC) MARY treated with BiPAP faitgue Osteoarthritis Seasonal allergies Snoring SOBOE (shortness of breath on exertion) Tattoos No reactions to anesthesia in the past. Airway patent PE: VS: BP (!) 168/89 Pulse 65 Temp 36.1 C (97 F) (Temporal) Resp 20 Ht 5' 10 (1.778 m) Wt 255 lb (116 kg) SpO2 98% BMI 36.59 kg/m Body mass index is 36.59 kg/m . General: Patient in no distress CVS: Regular rate & rhythm Respiratory: Clear to auscultation Abdomen: soft and non tender ASA score : 3 ASSESSMENT & PLAN: Risks & benefits of the endoscopic procedure(s) and MAC /GA sedation were personally explained to patient / family along with alternatives to the procedure in detail including radiological and surgical options. The risks of the endoscopic procedure include but are not limited to risk from anesthesia, respiratory failure, infection, bleeding, perforation, pancreatitis with its sequelae , damage to the adjacent organs, missed lesions and need for further procedure, surgery or interventional radiological intervention, from procedure or complications. We made a shared decision to proceed with planned procedure []EGD [x]Colonoscopy []EGD&Colonoscopy Claudette Stark MD Gastroenterology [facility] Phone: [phone]) 417-636405-09-2023 History and physical note* Claudette Stark - 03/30/2023 12:57 PM EDT GASTROENTEROLOGY PHYSICIAN PRE PROCEDURE NOTE HPI: Roxi Moreland is a 57 y.o. male who is here today for planned endoscopic examination. All: Allergies Allergen Reactions Penicillins Rash Other reaction(s): Rash Meds: No current facility-administered medications on file prior to encounter. Current Outpatient Medications on File Prior to Encounter Medication Sig Dispense Refill meloxicam (Mobic) 15 MG tablet Take 1 tablet (15 mg) by mouth daily. 30 tablet 11 naproxen (Naprosyn) 250 MG tablet Take by mouth. rizatriptan [employer] (Maxalt-[employer] SUPERVISOR) 10 MG disintegrating tablet Take 1 tablet (10 mg) by mouth Once as needed for migraine. May repeat in 2 hours if unresolved. Do not exceed 30 mg in 24 hours. 9 tablet 1 PMH: Past Medical History: Diagnosis Date Abdominal pain Adverse exposure in workplace Anesthesia complication Patient wakes up extremely anxious, feels like he can't breathe/swallow Back pain Lumbar Fusion L2 & L3 Daytime sleepiness Depression Difficulty sleeping Difficulty swallowing Fatigue History of kidney stones Joint pain, hip Joint pain, knee Morbid obesity due to excess calories (HCC) MARY treated with BiPAP faitgue Osteoarthritis Seasonal allergies Snoring SOBOE (shortness of breath on exertion) Tattoos No reactions to anesthesia in the past. Airway patent PE: VS: BP (!) 168/89 Pulse 65 Temp 36.1 C (97 F) (Temporal) Resp 20 Ht 5' 10 (1.778 m) Wt 255 lb (116 kg) SpO2 98% BMI 36.59 kg/m Body mass index is 36.59 kg/m . General: Patient in no distress CVS: Regular rate & rhythm Respiratory: Clear to auscultation Abdomen: soft and non tender ASA score : 3 ASSESSMENT & PLAN: Risks & benefits of the endoscopic procedure(s) and MAC /GA sedation were personally explained to patient / family along with alternatives to the procedure in detail including radiological and surgical options. The risks of the endoscopic procedure include but are not limited to risk from anesthesia, respiratory failure, infection, bleeding, perforation, pancreatitis with its sequelae , damage to the adjacent organs, missed lesions and need for further procedure, surgery or interventional radiological intervention, from procedure or complications. We made a shared decision to proceed with planned procedure []EGD [x]Colonoscopy []EGD&Colonoscopy Claudette Stark MD Gastroenterology documented in this [facility]05-09-2023 [facility] Patient Name: Roxi Moreland Procedure Date: 03/30/2023 7:14 AM Gender: Male Date of : 1965 Age: 57 Admit Type: Outpatient Note Status: Finalized Endoscopist: Claudette Stark , , Procedure: Colonoscopy Indications: Screening for colorectal malignant neoplasm Findings: A 7 mm polyp was found in the cecum. The polyp was sessile. The polyp was removed with a cold snare. Resection and retrieval were complete. Two sessile polyps were found in the transverse colon and ascending colon. The polyps were 2 to 4 mm in size. These polyps were removed with a cold biopsy forceps. Resection and retrieval were complete. Non-bleeding external hemorrhoids were found during retroflexion. The hemorrhoids were small. The exam was otherwise normal throughout the examined colon. Impression: - One 7 mm polyp in the cecum, removed with a cold snare. Resected and retrieved. - Two 2 to 4 mm polyps in the transverse colon and in the ascending colon, removed with a cold biopsy forceps. Resected and retrieved. - Non-bleeding external hemorrhoids. Recommendation: - Patient has a contact number available for emergencies. The signs and symptoms of potential delayed complications were discussed with the patient. Return to normal activities tomorrow. Written discharge instructions were provided to the patient. - Await pathology results. - Continue present medications. - Resume previous diet. - High fiber diet. - Return to referring physician as previously scheduled. Referring MD: Amber Holman MD Medicines: Monitored Anesthesia Care Procedure: Pre-Anesthesia Assessment: - Prior to the procedure, a History and Physical was performed, and patient medications and allergies were reviewed. The patient is competent. The risks and benefits of the procedure and the sedation options and risks were discussed with the patient. All questions were answered and informed consent was obtained. Patient identification and proposed procedure were verified by the physician, the nurse and the spinal surgeon in the pre-procedure area in the procedure room in the endoscopy suite. Mental Status Examination: alert and oriented. Airway Examination: normal oropharyngeal airway and neck mobility. Respiratory Examination: clear to auscultation. CV Examination: normal. Prophylactic Antibiotics: The patient does not require prophylactic antibiotics. Prior Anticoagulants: The patient has taken no anticoagulant or antiplatelet agents. ASA Grade Assessment: III - A patient with severe systemic disease. After reviewing the risks and benefits, the patient was deemed in satisfactory condition to undergo the procedure. The anesthesia plan was to use monitored anesthesia care (MAC). Immediately prior to administration of medications, the patient was re-assessed for adequacy to receive sedatives. The heart rate, respiratory rate, oxygen saturations, blood pressure, adequacy of pulmonary ventilation, and response to care were monitored throughout the procedure. The physical status of the patient was re-assessed after the procedure. After I obtained informed consent, the scope was passed under direct vision. Throughout the procedure, the patient's blood pressure, pulse, and oxygen saturations were monitored continuously. The Colonoscope was introduced through the anus and advanced to the cecum, identified by appendiceal orifice and ileocecal valve. The colonoscopy was performed with ease. The patient tolerated the procedure well. The quality of the bowel preparation was excellent. The terminal ileum, ileocecal valve, appendiceal orifice, and rectum were photographed. Complications: No immediate complications. Procedure Code(s): --- Professional --- 82783, Colonoscopy, flexible; with removal of tumor(s), polyp(s), or other lesion(s) by snare technique 25408, 59, Colonoscopy, flexible; with biopsy, single or multiple --- Technical --- 25304, Colonoscopy, flexible; with removal of tumor(s), polyp(s), or other lesion(s) by snare technique 40223, 59, Colonoscopy, flexible; with biopsy, single or multiple Diagnosis Code(s): --- Professional --- Z12.11, Encounter for screening for malignant neoplasm of colon D12.0, Benign neoplasm of cecum D12.3, Benign neoplasm of transverse colon (hepatic flexure or splenic flexure) D12.2, Benign neoplasm of ascending colon K64.4, Residual hemorrhoidal skin tags --- Technical --- Z12.11, Encounter for screening for malignant neoplasm of colon D12.0, Benign neoplasm of cecum D12.3, Benign neoplasm of transverse colon (hepatic flexure or splenic flexure) D12.2, Benign neoplasm of ascending colon K64.4, Residual hemorrhoidal skin tags CPT copyright 2021 [employer]. All rights reserved. The codes documented in this report are preliminary and upon death surveys coder review may be (more content not included)...[facility]05-09-2023 Note* Op Note - Claudette Stark - 03/30/2023 7:14 AM [facility] Roxi Moreland Procedure Date: 03/30/2023 7:14 AM Gender: Male Date of : 1965 Age: 57 Admit Type: Outpatient Note Status: Finalized Endoscopist: Claudette Stark , , Procedure: Colonoscopy Indications: Screening for colorectal malignant neoplasm Findings: A 7 mm polyp was found in the cecum. The polyp was sessile. The polyp was removed with a cold snare. Resection and retrieval were complete. Two sessile polyps were found in the transverse colon and ascending colon. The polyps were 2 to 4 mm in size. These polyps were removed with a cold biopsy forceps. Resection and retrieval were complete. Non-bleeding external hemorrhoids were found during retroflexion. The hemorrhoids were small. The exam was otherwise normal throughout the examined colon. Impression: - One 7 mm polyp in the cecum, removed with a cold snare. Resected and retrieved. - Two 2 to 4 mm polyps in the transverse colon and in the ascending colon, removed with a cold biopsy forceps. Resected and retrieved. - Non-bleeding external hemorrhoids. Recommendation: - Patient has a contact number available for emergencies. The signs and symptoms of potential delayed complications were discussed with the patient. Return to normal activities tomorrow. Written discharge instructions were provided to the patient. - Await pathology results. - Continue present medications. - Resume previous diet. - High fiber diet. - Return to referring physician as previously scheduled. Referring MD: Amber Holman MD Medicines: Monitored Anesthesia Care Procedure: Pre-Anesthesia Assessment: - Prior to the procedure, a History and Physical was performed, and patient medications and allergies were reviewed. The patient is competent. The risks and benefits of the procedure and the sedation options and risks were discussed with the patient. All questions were answered and informed consent was obtained. Patient identification and proposed procedure were verified by the physician, the nurse and the spinal surgeon in the pre-procedure area in the procedure room in the endoscopy suite. Mental Status Examination: alert and oriented. Airway Examination: normal oropharyngeal airway and neck mobility. Respiratory Examination: clear to auscultation. CV Examination: normal. Prophylactic Antibiotics: The patient does not require prophylactic antibiotics. Prior Anticoagulants: The patient has taken no anticoagulant or antiplatelet agents. ASA Grade Assessment: III - A patient with severe systemic disease. After reviewing the risks and benefits, the patient was deemed in satisfactory condition to undergo the procedure. The anesthesia plan was to use monitored anesthesia care (MAC). Immediately prior to administration of medications, the patient was re-assessed for adequacy to receive sedatives. The heart rate, respiratory rate, oxygen saturations, blood pressure, adequacy of pulmonary ventilation, and response to care were monitored throughout the procedure. The physical status of the patient was re-assessed after the procedure. After I obtained informed consent, the scope was passed under direct vision. Throughout the procedure, the patient's blood pressure, pulse, and oxygen saturations were monitored continuously. The Colonoscope was introduced through the anus and advanced to the cecum, identified by appendiceal orifice and ileocecal valve. The colonoscopy was performed with ease. The patient tolerated the procedure well. The quality of the bowel preparation was excellent. The terminal ileum, ileocecal valve, appendiceal orifice, and rectum were photographed. Complications: No immediate complications. Procedure Code(s): --- Professional --- 35404, Colonoscopy, flexible; with removal of tumor(s), polyp(s), or other lesion(s) by snare technique 04256, 59, Colonoscopy, flexible; with biopsy, single or multiple --- Technical --- 69668, Colonoscopy, flexible; with removal of tumor(s), polyp(s), or other lesion(s) by snare technique 60744, 59, Colonoscopy, flexible; with biopsy, single or multiple Diagnosis Code(s): --- Professional --- Z12.11, Encounter for screening for malignant neoplasm of colon D12.0, Benign neoplasm of cecum D12.3, Benign neoplasm of transverse colon (hepatic flexure or splenic flexure) D12.2, Benign neoplasm of ascending colon K64.4, Residual hemorrhoidal skin tags --- Technical --- Z12.11, Encounter for screening for malignant neoplasm of colon D12.0, Benign neoplasm of cecum D12.3, Benign neoplasm of transverse colon (hepatic flexure or splenic flexure) D12.2, Benign neoplasm of ascending colon K64.4, Residual hemorrhoidal skin tags CPT copyright 2021 [employer]. All rights reserved. The codes documented in this report are preliminary and upon death surveys coder review may be revised to meet current compliance requirements. Attending Participation: I personally performed the entire procedure. Claudette Stark, 03/30/2023 1:43:00 PM This report has been signed electronically. Number of Addenda: 0 Note Initiated On: 03/30/2023 7:14 AM [id number]* Op Note - Claudette Stark - 03/30/2023 7:14 AM [facility]T [facility]: Roxi Moreland Procedure Date: 03/30/2023 7:14 AM Gender: Male Date of : 1965 Age: 57 Admit Type: Outpatient Note Status: Finalized Endoscopist: Claudette Stark , , Procedure: Colonoscopy Indications: Screening for colorectal malignant neoplasm Findings: A 7 mm polyp was found in the cecum. The polyp was sessile. The polyp was removed with a cold snare. Resection and retrieval were complete. Two sessile polyps were found in the transverse colon and ascending colon. The polyps were 2 to 4 mm in size. These polyps were removed with a cold biopsy forceps. Resection and retrieval were complete. Non-bleeding external hemorrhoids were found during retroflexion. The hemorrhoids were small. The exam was otherwise normal throughout the examined colon. Impression: - One 7 mm polyp in the cecum, removed with a cold snare. Resected and retrieved. - Two 2 to 4 mm polyps in the transverse colon and in the ascending colon, removed with a cold biopsy forceps. Resected and retrieved. - Non-bleeding external hemorrhoids. Recommendation: - Patient has a contact number available for emergencies. The signs and symptoms of potential delayed complications were discussed with the patient. Return to normal activities tomorrow. Written discharge instructions were provided to the patient. - Await pathology results. - Continue present medications. - Resume previous diet. - High fiber diet. - Return to referring physician as previously scheduled. Referring MD: Amber Holman MD Medicines: Monitored Anesthesia Care Procedure: Pre-Anesthesia Assessment: - Prior to the procedure, a History and Physical was performed, and patient medications and allergies were reviewed. The patient is competent. The risks and benefits of the procedure and the sedation options and risks were discussed with the patient. All questions were answered and informed consent was obtained. Patient identification and proposed procedure were verified by the physician, the nurse and the spinal surgeon in the pre-procedure area in the procedure room in the endoscopy suite. Mental Status Examination: alert and oriented. Airway Examination: normal oropharyngeal airway and neck mobility. Respiratory Examination: clear to auscultation. CV Examination: normal. Prophylactic Antibiotics: The patient does not require prophylactic antibiotics. Prior Anticoagulants: The patient has taken no anticoagulant or antiplatelet agents. ASA Grade Assessment: III - A patient with severe systemic disease. After reviewing the risks and benefits, the patient was deemed in satisfactory condition to undergo the procedure. The anesthesia plan was to use monitored anesthesia care (MAC). Immediately prior to administration of medications, the patient was re-assessed for adequacy to receive sedatives. The heart rate, respiratory rate, oxygen saturations, blood pressure, adequacy of pulmonary ventilation, and response to care were monitored throughout the procedure. The physical status of the patient was re-assessed after the procedure. After I obtained informed consent, the scope was passed under direct vision. Throughout the procedure, the patient's blood pressure, pulse, and oxygen saturations were monitored continuously. The Colonoscope was introduced through the anus and advanced to the cecum, identified by appendiceal orifice and ileocecal valve. The colonoscopy was performed with ease. The patient tolerated the procedure well. The quality of the bowel preparation was excellent. The terminal ileum, ileocecal valve, appendiceal orifice, and rectum were photographed. Complications: No immediate complications. Procedure Code(s): --- Professional --- 67611, Colonoscopy, flexible; with removal of tumor(s), polyp(s), or other lesion(s) by snare technique 11227, 59, Colonoscopy, flexible; with biopsy, single or multiple --- Technical --- 77095, Colonoscopy, flexible; with removal of tumor(s), polyp(s), or other lesion(s) by snare technique 32521, 59, Colonoscopy, flexible; with biopsy, single or multiple Diagnosis Code(s): --- Professional --- Z12.11, Encounter for screening for malignant neoplasm of colon D12.0, Benign neoplasm of cecum D12.3, Benign neoplasm of transverse colon (hepatic flexure or splenic flexure) D12.2, Benign neoplasm of ascending colon K64.4, Residual hemorrhoidal skin tags --- Technical --- Z12.11, Encounter for screening for malignant neoplasm of colon D12.0, Benign neoplasm of cecum D12.3, Benign neoplasm of transverse colon (hepatic flexure or splenic flexure) D12.2, Benign neoplasm of ascending colon K64.4, Residual hemorrhoidal skin tags CPT copyright 2021 [employer]. All rights reserved. The codes documented in this report are preliminary and upon death surveys coder review may be revised to meet current compliance requirements. Attending Participation: I personally performed the entire procedure. Claudette Stark, 03/30/2023 1:43:00 PM This report has been signed electronically. Number of Addenda: 0 Note Initiated On: 03/30/2023 7:14 AM [id number] Miscellaneous Notes* Op Note - Claudette Stark - 03/30/2023 7:14 AM [facility]: Roxi Moreland Procedure Date: 03/30/2023 7:14 AM Gender: Male Date of : 1965 Age: 57 Admit Type: Outpatient Note Status: Finalized Endoscopist: Claudette Stark , , Procedure: Colonoscopy Indications: Screening for colorectal malignant neoplasm Findings: A 7 mm polyp was found in the cecum. The polyp was sessile. The polyp was removed with a cold snare. Resection and retrieval were complete. Two sessile polyps were found in the transverse colon and ascending colon. The polyps were 2 to 4 mm in size. These polyps were removed with a cold biopsy forceps. Resection and retrieval were complete. Non-bleeding external hemorrhoids were found during retroflexion. The hemorrhoids were small. The exam was otherwise normal throughout the examined colon. Impression: - One 7 mm polyp in the cecum, removed with a cold snare. Resected and retrieved. - Two 2 to 4 mm polyps in the transverse colon and in the ascending colon, removed with a cold biopsy forceps. Resected and retrieved. - Non-bleeding external hemorrhoids. Recommendation: - Patient has a contact number available for emergencies. The signs and symptoms of potential delayed complications were discussed with the patient. Return to normal activities tomorrow. Written discharge instructions were provided to the patient. - Await pathology results. - Continue present medications. - Resume previous diet. - High fiber diet. - Return to referring physician as previously scheduled. Referring MD: Amber Holman MD Medicines: Monitored Anesthesia Care Procedure: Pre-Anesthesia Assessment: - Prior to the procedure, a History and Physical was performed, and patient medications and allergies were reviewed. The patient is competent. The risks and benefits of the procedure and the sedation options and risks were discussed with the patient. All questions were answered and informed consent was obtained. Patient identification and proposed procedure were verified by the physician, the nurse and the spinal surgeon in the pre-procedure area in the procedure room in the endoscopy suite. Mental Status Examination: alert and oriented. Airway Examination: normal oropharyngeal airway and neck mobility. Respiratory Examination: clear to auscultation. CV Examination: normal. Prophylactic Antibiotics: The patient does not require prophylactic antibiotics. Prior Anticoagulants: The patient has taken no anticoagulant or antiplatelet agents. ASA Grade Assessment: III - A patient with severe systemic disease. After reviewing the risks and benefits, the patient was deemed in satisfactory condition to undergo the procedure. The anesthesia plan was to use monitored anesthesia care (MAC). Immediately prior to administration of medications, the patient was re-assessed for adequacy to receive sedatives. The heart rate, respiratory rate, oxygen saturations, blood pressure, adequacy of pulmonary ventilation, and response to care were monitored throughout the procedure. The physical status of the patient was re-assessed after the procedure. After I obtained informed consent, the scope was passed under direct vision. Throughout the procedure, the patient's blood pressure, pulse, and oxygen saturations were monitored continuously. The Colonoscope was introduced through the anus and advanced to the cecum, identified by appendiceal orifice and ileocecal valve. The colonoscopy was performed with ease. The patient tolerated the procedure well. The quality of the bowel preparation was excellent. The terminal ileum, ileocecal valve, appendiceal orifice, and rectum were photographed. Complications: No immediate complications. Procedure Code(s): --- Professional --- 81618, Colonoscopy, flexible; with removal of tumor(s), polyp(s), or other lesion(s) by snare technique [id number], 59, Colonoscopy, flexible; with biopsy, single or multiple --- Technical --- 97044, Colonoscopy, flexible; with removal of tumor(s), polyp(s), or other lesion(s) by snare technique [id number], 59, Colonoscopy, flexible; with biopsy, single or multiple Diagnosis Code(s): --- Professional --- Z12.11, Encounter for screening for malignant neoplasm of colon D12.0, Benign neoplasm of cecum D12.3, Benign neoplasm of transverse colon (hepatic flexure or splenic flexure) D12.2, Benign neoplasm of ascending colon K64.4, Residual hemorrhoidal skin tags --- Technical --- Z12.11, Encounter for screening for malignant neoplasm of colon D12.0, Benign neoplasm of cecum D12.3, Benign neoplasm of transverse colon (hepatic flexure or splenic flexure) D12.2, Benign neoplasm of ascending colon K64.4, Residual hemorrhoidal skin tags CPT copyright 2021 [employer]. All rights reserved. The codes documented in this report are preliminary and upon death surveys coder review may be revised to meet current compliance requirements. Attending Participation: I personally performed the entire procedure. Claudette Stark, 03/30/2023 1:43:00 PM This report has been signed electronically. Number of Addenda: 0 Note Initiated On: 03/30/2023 7:14 AM documented in this [facility]04-24-2023 History of Present illness Narrative* Robina Pollard MD - 03/15/2023 9:30 AM EDT Images from the original note were not included. [facility] [address] [place] [address] [address] [facility] [address] Dept: [phone] Dept 03/15/2023 Chief Complaint Patient presents with New Patient Bilat knee pain Subjective: Roxi is a 57 y.o. male who presents for evaluation of the bilateral knee. Right worse then right Symptoms began gradually several years ago. He describes the symptoms as aching, burning, sharp, shooting, and throbbing. The pain is diffusely around the knee. Symptoms improve with rest, heat, ice, medication: Naprosyn used but not effective. The symptoms are exacerbated by stair climbing, deep knee bending, weight bearing, walking . The knee has given out or felt unstable. The patient can bend and straighten the knee fully and does have mechanical symptoms (catching, locking). Able to walk 0 blocks and is able to use stairs. Overall, the patient feels as if this condition is severely impactin g their quality of life and ability to do activities of daily living. No associated radicular pain contributing nor any radiating hip pain. Previous Surgery: Yes. Right knee scope 1982. Non-operative treatment to date has consisted of: NSAIDS: Yes Narcotics: No Therapy: None. Cortisone injections: Yes 02/26/23 Viscosupplementation: Yes Assistive Devices: None Bracing: No knee sleeves Attempted Weight Loss: No Medications reviewed. Review of Systems Constitutional: Negative for activity change. HENT: Negative for congestion. Cardiovascular: Negative for leg swelling. Musculoskeletal: Positive for arthralgias, gait problem and joint swelling. Skin: Negative for wound. Neurological: Negative for weakness. Past Medical History: Diagnosis Date Abdominal pain Adverse exposure in workplace Anesthesia complication Patient wakes up extremely anxious, feels like he can't breathe/swallow Back pain Lumbar Fusion L2 & L3 Daytime sleepiness Depression Difficulty sleeping Difficulty swallowing Fatigue History of kidney stones Joint pain, hip Joint pain, knee Morbid obesity due to excess calories (HCC) MARY treated with BiPAP faitgue Osteoarthritis Seasonal allergies Snoring SOBOE (shortness of breath on exertion) Tattoos Past Surgical History: Procedure Laterality Date APPENDECTOMY 2008 CATARACT EXTRACTION Left 2017 CATARACT EXTRACTION Right 2018 COLONOSCOPY 04/25/2019 EGD EYE SURGERY Cataract KNEE SURGERY 1983 Torn Miniscus LUMBAR FUSION 2010 [place] LUMBAR FUSION 2010 [facility] Social History Socioeconomic History Marital status: Spouse name: Not on file Number of children: Not on file Years of education: Not on file Highest education level: Not on file Occupational History Not on file Tobacco Use Smoking status: Never Smokeless tobacco: Never Substance and Sexual Activity Alcohol use: Yes Drug use: No Sexual activity: Not on file Other Topics Concern Not on file Social History Narrative Not on file Social Determinants of Health Financial Resource Strain: Not on file Food Insecurity: Not on file Transportation Needs: Not on file Physical Activity: Not on file Stress: Not on file Social Connections: Not on file Intimate Partner Violence: Not on file Housing Stability: Not on file Family History Problem Relation Name Age of Onset Heart disease Maternal Grandmother Obesity Maternal Grandfather Obesity Father Obesity Maternal Grandmother Heart disease Father Hypertension Father Diabetes Maternal Grandfather Heart disease Paternal Grandmother Obesity Paternal Grandmother Cancer Mother Cancer Paternal Grandfather Allergies Allergen Reactions Penicillins Rash Other reaction(s): Rash Objective: BP 126/79 Ht 5' 10 (1.778 m) Wt 258 lb (117 kg) BMI 37.02 kg/m Pt is a WD/WN male in no acute distress. He appears his stated age. Mood and affect are normal. He is A&O x 3. Gait: antalgic. RIGHT KNEE: Inspection shows skin is warm, dry and intact. There are scars/previous incisions, well-healed.. Alignment is significant varus. ROM shows extension is -2-3, flexion 125. The knee is stable to varus/valgus stress (<6 degrees)and is correctable. Additional findings include medial joint line tenderness and lateral joint linetenderness, no erythema. Anterior, posterior drawer negative. +PF/DF/EHL. SILT distally. DP/PT palpable. Straight leg raise negative for inciting radicular symptoms. LEFT KNEE: Inspection shows skin is warm, dry and intact. There are no obvious scars or previous incisions.. Alignment is significant varus. ROM shows extension is -1-2, flexion 125. The knee is stable to varus/valgus stress (<6 degrees)and is correctable. Additional findings include medial joint line tenderness and lateral joint linetenderness, no erythema. Anterior, posterior drawer negative. +PF/DF/EHL. SILT distally. DP/PT palpable. Straight leg raise negative for inciting radicular symptoms. Bilateral hip range of motion is not painful. Lab Results: RELEVANT LABS: NONE MRI 06/23/22 IMPRESSION: 1. High-grade/extensive horizontal-oblique tear of the medial meniscus body and posterior horn, with areas of both tibial and femoral articular surface contact. Partial extra-articular extrusion of the body. The posterior horn has a diminutive morphology. 2. Essentially full-thickness chondral loss throughout the narrowed medial femorotibial joint space, especially centrally. 3. Extensive subarticular bone marrow edema throughout the medial femoral condyle and to a lesser extent the peripheral tibial plateau. No discrete or displaced fracture. Thyroid Suspected low-grade, partial-thickness tear along the femoral surface of the lateral meniscus anterior horn. 4. Full-thickness chondral loss along the medial patellar facet and apex. Partial-thickness chondral loss throughout the remaining patellofemoral compartment. 5. Large joint effusion. Radiology Findings: New images obtained today in office reviewed and interpreted. XRAYS: Indication: Bilateral knee pain. Exam Ordered: Radiographs of the knee include a standing anteroposterior view, a standing posteroanterior view, a lateral view in flexion, and a sunrise view. Details of Examination: Exam shows evidence of significant joint space narrowing (bone on bone) particularly in the medial compartment, significant peripheral osteophyte formation, and subchondral sclerosis; all consistent with end-stage degenerative arthritis of the knee. Significant progression from imaging in 2020. No other significant findings are noted. Impression: Degenerative Arthritis, bilateral knee. Assessment 1. Primary osteoarthritis of both knees 2. Pain in both knees, unspecified chronicity Plan Right Total Knee Arthroplasty. This patient has end-stage degenerative joint disease clinically and radiographically. The affectedknee is severely impacting the patient's quality of life and causing them to decrease their daily activities. They have tried non-operative treatment including analgesics, an exercise program, and activity modification, but the symptoms have persisted for beyond three months. The patient meets all of the criteria for a total knee arthroplasty. Will need to wait 2.5 months due to recent injection. The risks and benefits of knee arthroplasty have been discussed with the patient. Benefits include potential relief of pain and the associated improvement in quality of life. Improvements in knee range of motion may or may not be attained and is less predictable. Risks include, but are not limited to, infections (including severe sequelae), potential component failure and implant loosening, fracture, DVT, pulmonary embolus, damage to nerves/muscles/tendons/ligaments, poor range of motion and arthrofibrosis, osteolysis and bearing wear, persistent pain, wound healing complications, bleeding and need for possible transfusions, multi-system organ injury/failure, and ultimately . The patient comprehends and understands the risks clearly and wishes to proceed with the indicated total kneearthroplasty. We will need a 4 week post-op check with new X-rays. Pre-operative planning will include the following: A pre-surgical evaluation by an loan servicing representative will be arranged. Pre-operative laboratory tests as well as EKG which will be checked by the loan servicing representative. Will make arrangements with the operating room for proper time and staffing. Arrangements with the implant company to make sure the proper implants are made available. Social service arrangements for the patient, to include physical therapy at home versus in the outpatient setting, depending on patient preference. The chance for [facility] facility discharge is also plausible pending post-op therapy. Patient Discussion, Scripts, & Risk Assessment Checklist: [x] Detailed Consent Performed [] Cardiology consult prior to surgery (i.e. CHF, stents) [] Specialist managing patient (i.e. endocrine, nephrology, oncology) N/A [] PCP consult prior to surgery [x] PT Discussion - Patient prefers: Home PT [] Outpatient PT script provided - Patient to schedule well in advance for 2-3 days after surgery [x] Alicja-articular Injection Form Submitted - No significant allergy or intolerance to NSAID's - All Total Joint Procedures [] Dental work to be done - Patient to call back after completed/cleared before scheduling [] Previous Blood Clot: N/A [] Disease Modifying Drugs for *Autoimmune Disease N/A [x] Risk Assessment... No High Risk Factors [x] High Risk Protocol Duricef 500mg BID x 7 days BOOKING INSTRUCTIONS Procedure: Right Total Knee Arthroplasty - 22040 Time: 1.5 hours Diagnosis: 1. Primary osteoarthritis of both knees 2. Pain in both knees, unspecified chronicity Blood: Not anticipated to be given Important Labs to Obtain: Routine PAT protocol Anesthesia: Spinal and ambIT Adductor Pump DVT Prophylaxis: ASA Return to Office: No Repeat Xrays: No Anticipated Discharge To: Home, 23-HR Stay Implants: DePuy Attune, with patellar resurfacing Equipment: MatchGrade leg choi, CarboJet, regular table Other: TXA, No Victor, OpSite The patient is not a candidate for same day joint replacement. Possible undiagnosed sleep apnea. Electronically signed by Robina Pollard M.D. 03/15/2023 at 10:13 AM. documented in this [id number] Telephone encounter Note* Telephone Encounter - Lexy Hernandez - 03/12/2023 11:01 AM EDT Name of caller: Roxi (Per CRM) Contact phone number: [phone] Relationship to Patient: Patient Provider: Dr. Holman Practice: Orthopedics Chief Complaint/Reason for Call: Patient - per CRM - is asking for a Referral to [facility] for aColorectal Screening. If appropriate, please place in Chart and advise the patient accordingly. Best time of day caller can be reached: any Patient advised that office/PCP has 24-48 business hours to return their call: No [facility] [id number] Miscellaneous Notes* Telephone Encounter - Lexy Hernandez - 03/12/2023 11:01 AM EDT Name of caller: Roxi (Per CRM) Contact phone number: [phone] Relationship to Patient: Patient Provider: Dr. Holman Practice: Orthopedics Chief Complaint/Reason for Call: Patient - per CRM - is asking for a Referral to [facility] for aColorectal Screening. If appropriate, please place in Chart and advise the patient accordingly. Best time of day caller can be reached: any Patient advised that office/PCP has 24-48 business hours to return their call: No documented in this [facility]04-07-2023 History of Present illness Narrative* Amber Holman MD - 02/26/2023 2:30 PM EDT [facility] [place] [address] [place] [address] Dept: [phone] Dept No chief complaint on file. Subjective History of Present Illness: Roxi Moreland is a 57 y.o. male who presents today for injection of bilateral knee injections. Prior targeted injections: Cortisone Fall risk assessment: Less than 65, not applicable Objective There were no vitals taken for this visit. Physical Exam: General: Alert, well appearing, no acute distress. Respiratory: Breathing comfortably on room air. No respiratory distress. Skin: Warm, dry, intact. No visible rashes or erythema overlying area of focused exam. Medial and lateral joint line tenderness knees bilaterally, negative Prudencio, negative Lockman, small effusion. External Notes No pertinent interval updates Labs No results found for: HGBA1C No results found for: CREATININE Imaging I have personally reviewed the images pertinent to the appointment today EMG/NCT N/A Procedure Procedure completed today, details below Procedure Note: We discussed risks and precautions including infection, bleeding, hypopigmentation, fat atrophy penelope 1-2% chance of a steroid flare. Verbal and written consent was obtained. The bilateral knee injection site was located, confirmed and marked, it was prepped in the usual fashion with betadine and isopropyl alcohol. 2 cc of Kenalog (40mg/ml) and 4 cc of 1% lidocaine were placed in the, intra-articular, intracondylar space using a inferior lateral approach. The procedure was tolerated well. There were no complications with the injection. The injection site was bandaged. Assessment No diagnosis found. Plan We discussed osteoarthritis of the knee. We reviewed the spectrum of 1. Pills - everything from Tylenol, ibuprofen, Aleve, and pain medicines. We also discussed glucosamine/chondroitin combinations and how to perform a glucosamine trial. Additionally Tumeric can be supplemented, it is likely similar to ibuprofen and is generally safe for most people to take. Glucosamine Trial: As a treatment for arthritis, we discussed a trial of glucosamine, [id number]. We talked about using a good quality glucosamine source as the testing agent. Cosamin DS or Osteo-Bio Flex would be two of the options to pick from. Write down, using as many numbers as possible, a description of when the arthritis is symptomatic (i.e. I can go up 1 flight of stairs before my knee hurts, I can sleep 4 hours before my knee wakes me, my knee begins to hurt me at 2 p.m. on a work day ). This documentation will be kept for comparison in 3-4 months. Take the glucosamine twice daily for 3-4 months. Comparing your symptoms sheet, and see if there is improvement. Glucosamine will work in approximately 60-65% of people. If it is helping continue the supplementation. If there is no improvement you can stop the glucosamine. 2. Physical therapy - formal physical therapy and braces. The benefits of strengthening, endurance,flexibility, balancing, and proprioception. The combination of all of these to decrease joint pain. 3. Shots - corticosteroid, hyaluronic acid, and investigational injections. We discussed the episodic nature, and Band-Aid nature of cortisone. No more frequent than every 3-4 months, the potential for cortisone to soften articular cartilage with repetitive use. And the use as a bridge agent. We also discussed hyaluronic acid injection series and the potential benefits of lubrication, nourishing the cartilage, re-booting the knee capsule and the potential for 1 year of improvement. 4. Surgery - cleanup procedures as well as total joint replacement. We discussed the need to progress through conservative measures before this is a viable option. All treatment options were discussed. All questions were answered. We will continue with prn oral medication, a glucosamine trial and a HEP. We will recheck as outlined to alter therapy as needed. Clementine Rhodes, DIONE 02/26/2023 2:38 PM Please note that portions of this note may have been completed with voice recognition software. Documentation reviewed prior to signing but minor errors in talent sourcing specialist may have occurred. documented in this [facility]04-07-2023 Instructions* Patient Instructions* Amber Holman MD - 02/26/2023 2:30 PM EDT Post Cortisone Injection home going instructions The injection you have just received normally goes without incident. The injection area may be sore. It is very important that you rest the area of the injection for 24 hours after the injection. Youmay apply ice to the area (10 to 15 minutes every one to two hours) for the first day if you have pain or feel that you need to. The numbing medication given with the injection, can last for 1-2 hours. The actual Cortisone may take up to two to four days to take effect. And should last 6-8 weeks. 1% of the time you can get a steroid flare to the medicine that was injected. It is more of an irritation rather than a true allergy. It is suggested that you apply ice to the affected area 20 minutes on and 20 minutes off. DO NOT APPLY THE ICE DIRECTLY TO THE SKIN. Use a thin layer (T-shirt, pillowcase, towel, etc.) to protect the skin from frostbite. This reaction can last 1-2 days and resolves spontaneously on its own. There are no long-term problems to this steroid flare, it is just a nuisance. The cortisone will still take effect and last as expected. If you develop any abnormal symptoms, such as itching, swelling, redness, rash, or shortness of breath, please call our office. Normally, these are temporary symptoms which resolve within a day but we are more than happy to answer any questions you may have. If you develop hypopigmentation or a dimple in the area near the injection this also can be a reaction to the injection. It may last severalmonths or possibly be permanent. Let your doctor know when you see him next visit. If you do develop symptoms of a true allergy (hives, difficulty breathing, etc.) then you should goto the nearest emergency room. If your injection site becomes red, hot, painful and you develop a fever 3-5 days after the injection this could be an infection. This is serious, call the office immediately and you may be directed to the an emergency room. documented in this [facility] [employer] [facility] note* Diagnosis Acute pain of right knee documented in this encounter [facility] Work Phone: Evaluation note* Diagnosis Right hip pain Pain in joint, pelvic region and thigh Acute midline low back pain without sciatica documented in this encounter [facility] Work Phone: Evaluation note* Diagnosis Stress fracture of right tibia with delayed healing, subsequent encounter documented in this encounter [facility] Work Phone: Evaluation note* Diagnosis Primary osteoarthritis of both knees- Primary documented in this encounter [facility] note* Diagnosis Encounter for screening colonoscopy- Primary documented in this encounter [facility] note* Diagnosis Primary osteoarthritis of both knees- Primary Pain in both knees, unspecified chronicity documented in this encounter [facility] note* Diagnosis Encounter for screening for malignant neoplasm of colon documented in this encounter [facility] note* Diagnosis Degenerative lumbar spinal stenosis- Primary Spinal stenosis of lumbar region documented in this encounter [facility] Work Phone: Hospital Discharge instructions* Attachments The following attachments cannot be sent through Care Everywhere. * Colon Polyps (Setswana) [facility] (n[facility] Consultation (Routine) - Pending Review Specialty Diagnoses / Procedures Referred By Contac t Referred To Contact Gastroenterology Diagnoses Encounter for screening colonoscopy Procedures MA OFFICE/OUTPATIENT [facility] 60-74 MINUTES Amber Holman MD [address] [place] [address] [facility] [address] [place] [address] Referral ID Status Reason Start Date Expiration Date Visits Requested Visits Authorized [id number] Pending Review Specialty Services Required 03/12/2023 03/11/2024 1 1 [facility] Summary Purpose Family History No Family History Records Found Relationship Condition Age at Onset Recorded Date/T marcel Not Specified Malignant melanoma Unknown Malignant neoplasm Unknown Advance Directives No Advanced Directives Records FoundDocuments on File Type Date Recorded Patient Police Service Technician Expl anation ACP-Advance Directive ACP-Power of Press Operator Printing Latest Code Status on File Code Status Date Activated Date Inactivated Comments Full Code 04/25/2019 8:10 AM 04/25/2019 11:48 AM Documents on File Type Date Recorded Patient Police Service Technician Expl anation Advance Directives and Living Will Power of Press Operator Printing Latest Code Status on File Code Status Date Activated Date Inactivated Comments Full Code 04/25/2019 8:10 AM 04/25/2019 11:48 AM Advance Directive Response Recorded Date/ Time Advance Directives No December 14, 2016 2:07pm Advance Directive Response Recorded Date/ Time Do you have a Healthcare Power of Press Operator Printing? No March 27, 2025 9:35am Advance Directives No December 14, 2016 2:07pm Reason for Referral Specialty Diagnoses / Procedures Referred By Contasa t Referred To Contact Radiology Diagnoses Stress fracture of right tibia with delayed healing, subsequent encounter Procedures MRI Lower Extremity Right W JT WO Contrast Amber Holman MD [address] [place] [address] Referral ID Status Reason Start Date Expiration Date V isits Requested Visits Authorized [id number] Authorized 05/22/2022 05/22/2023 1 1 Chief Complaint and Reason for Visit Chief Complaint Admit Date BILATERAL KNEES March 14, 2025 10: 01am chronic knee pain- BOTH KNEES February 10:15am right knee March 28, 2025 3:06pm INT LAB ORDERS March 29, 2025 11:07a m TEMPLATING FOR RT TKA April 03, 2025 7:0 7am Reason for Visit Admit Date Left knee DJD March 14, 2025 10: 01am Right knee DJD March 14, 2025 10: 01am Chronic narcotic use March 14, 2025 10 :01am Right knee pain March 28, 2025 3:06pm Chief Complaint Admit Date BILATERAL KNEES March 14, 2025 10: 01am chronic knee pain- BOTH KNEES February 10:15am right knee March 28, 2025 3:06pm INT LAB ORDERS March 29, 2025 11:07a m PREOP March 29, 2025 11:39a m TEMPLATING FOR RT TKA April 03, 2025 7:0 7am Right Total Knee Replacement Robotic Arm Assisted, April 10, 2025 8:58am Right Total Knee Replacement Robotic Arm Assisted, April 10, 2025 10:10am Chief Complaint Admit Date BILATERAL KNEES March 14, 2025 10: 01am chronic knee pain- BOTH KNEES February 10:15am right knee March 28, 2025 3:06pm INT LAB ORDERS March 29, 2025 11:07a m PREOP March 29, 2025 11:39a m TEMPLATING FOR RT TKA April 03, 2025 7:0 7am Right Total Knee Replacement Robotic Arm Assisted, April 10, 2025 8:58am Right Total Knee Replacement Robotic Arm Assisted, April 10, 2025 10:10am RIGHT KNEE. RX HERE April 25, 2025 9:30a m right knee April 25, 2025 10:28 am Chief Complaint Admit Date BILATERAL KNEES March 14, 2025 10: 01am chronic knee pain- BOTH KNEES February 10:15am right knee March 28, 2025 3:06pm INT LAB ORDERS March 29, 2025 11:07a m PREOP March 29, 2025 11:39a m TEMPLATING FOR RT TKA April 03, 2025 7:0 7am Right Total Knee Replacement Robotic Arm Assisted, April 10, 2025 8:58am Right Total Knee Replacement Robotic Arm Assisted, April 10, 2025 10:10am RIGHT KNEE. RX HERE April 25, 2025 9:30a m right knee April 25, 2025 10:28 am LABS May 02, 2025 1:36 pm Reason for Visit Admit Date Left knee DJD March 14, 2025 10: 01am Right knee DJD March 14, 2025 10: 01am Chronic narcotic use March 14, 2025 10 :01am Right knee pain March 28, 2025 3:06pm Right knee DJD April 25, 2025 10:28 am Total knee replacement status April 25, 2025 10:28am Chief Complaint Admit Date BILATERAL KNEES March 14, 2025 10: 01am chronic knee pain- BOTH KNEES February 10:15am right knee March 28, 2025 3:06pm INT LAB ORDERS March 29, 2025 11:07a m PREOP March 29, 2025 11:39a m TEMPLATING FOR RT TKA April 03, 2025 7:0 7am Right Total Knee Replacement Robotic Arm Assisted, April 10, 2025 8:58am Right Total Knee Replacement Robotic Arm Assisted, April 10, 2025 10:10am right knee April 25, 2025 10:28 am LABS May 02, 2025 1:36 pm RIGHT KNEE. RX HERE May 17, 2025 1:30 pm s/p TKA- RIGHT KNEE May 23, 2025 10:40 am right knee May 23, 2025 10:54 am Additional Source Comments (unrecognized sect ion and content) No Status Records FoundNo Status Records FoundNo Status Records FoundNo Status Records FoundNo Status Records FoundNo Status Records FoundNo Status Records Found INFORMATION SOURCE (unrecogn ized section and content) DATE CREATED AUTHOR 12/20/2019 [facility] DATE CREATED AUTHOR AUTHOR'S ORGANIZ ATION 06/27/2022 [facility] DATE CREATED AUTHOR AUTHOR'S ORGANIZ ATION 04/02/2023 [facility] DATE CREATED AUTHOR AUTHOR'S ORGANIZ ATION 08/16/2023 [facility] DATE CREATED AUTHOR AUTHOR'S ORGANIZ ATION 01/24/2024 [facility] DATE CREATED AUTHOR AUTHOR'S ORGANIZ ATION 05/23/2025 [facility] DATE CREATED AUTHOR AUTHOR'S ORGANIZ ATION 05/23/2025 [facility] Care Teams (unrecognized sec tion and content) Rounder And Backer Relationship Specialty Start Date End Date Amber Holman MD [address] [place] [id number] PCP - General Sports Medicine 11/11/16 [employer] And Backer Relationship Specialty Start Date End Date Amber Holman MD [address] [place] [id number] PCP - General 11/11/16 Rounder And Backer Relationship Specialty Start Date End Date Amber Holman MD [address] [place], [place] [phone] PCP - General 11/11/16 Rounder And Backer Relationship Specialty Start Date End Date Amber Holman MD [address] [place] [id number] PCP - General 11/11/16 Rounder And Backer Relationship Specialty Start Date End Date Amber Holman MD [address] [place] [id number] PCP - General 11/11/16 Rounder And Backer Relationship Specialty Start Date End Date Amber Holman MD [address] [place] [id number] PCP - General 11/11/16 Rounder And Backer Relationship Specialty Start Date End Date Amber Holman MD [address] [place] [id number] PCP - General 08/11/23 Team Status: Active Member Role Status Dates Dr. Aren Jaimes DO Primary Care Provider Active Team Status: Inactive Member Role Status Dates Dr. Amber Holman MD Primary Care Provider Active Start: March 14, 2025 End: March 14, 2025 Dr. Amber Holman MD Referring Provider Active Start: March 14, 2025 End: March 14, 2025 Dr. Ariel Antonio DO Attending Provider Active Start: March 14, 2025 End: March 14, 2025 Team Status: Inactive Member Role Status Dates Dr. Ariel Antonio DO Attending Provider Active Start: March 14, 2025 End: March 14, 2025 Dr. Ariel Antonio DO Referring Provider Active Start: March 14, 2025 End: March 14, 2025 Dr. Amber Holman MD Primary Care Provider Active Start: March 14, 2025 End: March 14, 2025 Team Status: Inactive Member Role Status Dates Dr. Amber Holman MD Primary Care Provider Active Start: March 28, 2025 End: March 28, 2025 Dr. Amber Holman MD Referring Provider Active Start: March 28, 2025 End: March 28, 2025 Dr. Ariel Antonio DO Attending Provider Active Start: March 28, 2025 End: March 28, 2025 Team Status: Inactive Member Role Status Dates Dr. Amber Holman MD Primary Care Provider Active Start: March 29, 2025 End: March 29, 2025 Dr. Ariel Antonio DO Attending Provider Active Start: March 29, 2025 End: March 29, 2025 Dr. Ariel Antonio DO Referring Provider Active Start: March 29, 2025 End: March 29, 2025 Team Status: Active Member Role Status Dates Dr. Ariel Antonio DO Attending Provider Active Start: April 03, 2025 Dr. Ariel Antonio DO Referring Provider Active Start: April 03, 2025 Dr. Aren Jaimes DO Primary Care Provider Active Start: April 03, 2025 Team Status: Active Member Role Status Dates Dr. Aren Jaimes DO Primary Care Provider Active Start: March 29, 2025 End: March 29, 2025 Dr. Aren [place] MD Attending Provider Active Start: March 29, 2025 End: March 29, 2025 Dr. Ariel Antonio DO Referring Provider Active Start: March 29, 2025 End: March 29, 2025 Team Status: Inactive Member Role Status Dates Dr. Ariel Antonio DO Attending Provider Active Start: April 03, 2025 End: April 03, 2025 Dr. Ariel Antonio DO Referring Provider Active Start: April 03, 2025 End: April 03, 2025 Dr. Aren Jaimes DO Primary Care Provider Active Start: April 03, 2025 End: April 03, 2025 Team Status: Active Member Role Status Dates Dr. Ariel Antonio DO Attending Provider Active Start: April 10, 2025 Dr. Ariel Antonio DO Referring Provider Active Start: April 10, 2025 Dr. Aren Jaimes DO Primary Care Provider Active Start: April 10, 2025 Team Status: Active Member Role Status Dates Dr. Ariel Antonio DO Attending Provider Active Start: April 10, 2025 Dr. Ariel Antonio DO Referring Provider Active Start: April 10, 2025 Dr. Ariel Antonio DO Other Provider Active St art: April 10, 2025 Dr. Aren Jaimes DO Primary Care Provider Active Start: April 10, 2025 Team Status: Inactive Member Role Status Dates Dr. Ariel Antonio DO Attending Provider Active Start: April 10, 2025 End: April 10, 2025 Dr. Ariel Antonio DO Referring Provider Active Start: April 10, 2025 End: April 10, 2025 Dr. Aren Jaimes DO Primary Care Provider Active Start: April 10, 2025 End: April 10, 2025 Team Status: Active Member Role Status Dates Dr. Ariel Antonio DO Attending Provider Active Start: April 25, 2025 Dr. Aren Jaimes DO Primary Care Provider Active Start: April 25, 2025 Team Status: Inactive Member Role Status Dates Dr. Amber Holman MD Referring Provider Active Start: April 25, 2025 End: April 25, 2025 MARIBELL Jennings Attending Provider Active Start: April 25, 2025 End: April 25, 2025 Dr. Aren Jaimes DO Primary Care Provider Active Start: April 25, 2025 End: April 25, 2025 Team Status: Inactive Member Role Status Dates Dr. Aren Jaimes DO Primary Care Provider Active Start: May 02, 2025 End: May 02, 2025 Dr. Aren Jaimes DO Attending Provider Active Start: May 02, 2025 End: May 02, 2025 Dr. Aren Jaimes DO Referring Provider Active Start: May 02, 2025 End: May 02, 2025 Team Status: Active Member Role/Relationship Status Dates Dr. Aren Jaimes DO Primary Care Provider Active Team Status: Inactive Member Role/Relationship Status Dates Dr. Amber Holman MD Primary Care Provider Active Start: March 14, 2025 End: March 14, 2025 Dr. Amber Holman MD Referring Provider Active Start: March 14, 2025 End: March 14, 2025 Dr. Ariel Antonio DO Attending Provider Active Start: March 14, 2025 End: March 14, 2025 Team Status: Inactive Member Role/Relationship Status Dates Dr. Ariel Antonio DO Attending Provider Active Start: March 14, 2025 End: March 14, 2025 Dr. Ariel Antonio DO Referring Provider Active Start: March 14, 2025 End: March 14, 2025 Dr. Amber Holman MD Primary Care Provider Active Start: March 14, 2025 End: March 14, 2025 Team Status: Inactive Member Role/Relationship Status Dates Dr. Amber Holman MD Primary Care Provider Active Start: March 28, 2025 End: March 28, 2025 Dr. Amber Holman MD Referring Provider Active Start: March 28, 2025 End: March 28, 2025 Dr. Ariel Antonio DO Attending Provider Active Start: March 28, 2025 End: March 28, 2025 Team Status: Inactive Member Role/Relationship Status Dates Dr. Amber Holman MD Primary Care Provider Active Start: March 29, 2025 End: March 29, 2025 Dr. Ariel Antonio DO Attending Provider Active Start: March 29, 2025 End: March 29, 2025 Dr. Ariel Antonio DO Referring Provider Active Start: March 29, 2025 End: March 29, 2025 Team Status: Active Member Role/Relationship Status Dates Dr. Aren Jaimes DO Primary Care Provider Active Start: March 29, 2025 End: March 29, 2025 Dr. Aren [place] MD Attending Provider Active Start: March 29, 2025 End: March 29, 2025 Dr. Ariel Antonio DO Referring Provider Active Start: March 29, 2025 End: March 29, 2025 Team Status: Inactive Member Role/Relationship Status Dates Dr. Ariel Antonio DO Attending Provider Active Start: April 03, 2025 End: April 03, 2025 Dr. Ariel Antonio DO Referring Provider Active Start: April 03, 2025 End: April 03, 2025 Dr. Aren Jaimes DO Primary Care Provider Active Start: April 03, 2025 End: April 03, 2025 Team Status: Inactive Member Role/Relationship Status Dates Dr. Ariel Antonio DO Attending Provider Active Start: April 10, 2025 End: April 10, 2025 Dr. Ariel Antonio DO Referring Provider Active Start: April 10, 2025 End: April 10, 2025 Dr. Aren Jaimes DO Primary Care Provider Active Start: April 10, 2025 End: April 10, 2025 Team Status: Active Member Role/Relationship Status Dates Dr. Ariel Antonio DO Attending Provider Active Start: April 10, 2025 Dr. Ariel Antonio DO Referring Provider Active Start: April 10, 2025 Dr. Ariel Antonio DO Other Provider Active St art: April 10, 2025 Dr. Aren Jaimes DO Primary Care Provider Active Start: April 10, 2025 Team Status: Inactive Member Role/Relationship Status Dates Dr. Amber Holman MD Referring Provider Active Start: April 25, 2025 End: April 25, 2025 MARIBELL Jennings Attending Provider Active Start: April 25, 2025 End: April 25, 2025 Dr. Aren Jaimes DO Primary Care Provider Active Start: April 25, 2025 End: April 25, 2025 Team Status: Inactive Member Role/Relationship Status Dates Dr. Aren Jaimes DO Primary Care Provider Active Start: May 02, 2025 End: May 02, 2025 Dr. Aren Jaimes DO Attending Provider Active Start: May 02, 2025 End: May 02, 2025 Dr. Aren Jaimes DO Referring Provider Active Start: May 02, 2025 End: May 02, 2025 Team Status: Active Member Role/Relationship Status Dates Dr. Ariel Antonio DO Attending Provider Active Start: May 17, 2025 Dr. Aren Jaimes DO Primary Care Provider Active Start: May 17, 2025 Team Status: Active Member Role/Relationship Status Dates Dr. Ariel Antonio DO Attending Provider Active Start: May 23, 2025 Dr. Ariel Antonio DO Referring Provider Active Start: May 23, 2025 Dr. Aren Jaimes DO Primary Care Provider Active Start: May 23, 2025 Team Status: Inactive Member Role/Relationship Status Dates Dr. Amber Holman MD Referring Provider Active Start: May 23, 2025 End: May 23, 2025 Dr. Ariel Antonio DO Attending Provider Active Start: May 23, 2025 End: May 23, 2025 Dr. Aren Jaimes DO Primary Care Provider Active Start: May 23, 2025 End: May 23, 2025 Reason for Visit (unrecogniz ed section and content) Reason Comments Injections Bilateral knee pain Reason Onset Date Comments Referral 03/12/2023 Colorectal Scree lee Reason Comments New Patient Bilat knee pain Specialty Diagnoses / Procedures Referred By Josue t Referred To Contact Diagnoses Encounter for screening for malignant neoplasm of colon Encounter for screening for malignant neoplasm of colon [Z12.11] Procedures MA COLONOSCOPY FLX DX W/COLLJ SPEC WHEN PFRMD COLONOSCOPY Claudette Stark [address] [place] [address] [facility] [address] [place] [address] Referral ID Status Reason Start Date Expiration Date Visits Re quested Visits Authorized [id number] 1 1 Reason Comments Pain Scheduled Active and Recently Administ ered Medications (unrecognized section and content) Medication Order 03/28/2023 03/29/2023 03/30/2023 sodium chloride 0.9% (NS) flush 10 mL 10 mL, IntraVENous, Every 12 hours scheduled (2 times per day), First dose on Wed03/30/23 at 2100, Preprocedure Continuous Medication Order 03/28/2023 03/29/2023 03/30/2023 lactated Ringer's (LR) infusion 50 mL/hr, IntraVENous, Continuous, Starting on Wed03/30/23 at 1215, Preprocedure, Upon admission to sameday - please start iv if patient does not have iv access. Use 500ml NS for patients on dialysis. 1223 (New Bag - Prov ider: Claire Fink RN)1316 (Continued by Anesthesia - Provider: Rosenda Ellsworth CRNA)1344 (Stopped - Provider: Rosenda Ellsworth CRNA) PRN Medication Order 03/28/2023 03/29/2023 03/30/2023 sodium chloride 0.9 % infusion 5-250 mL/hr, IntraVENous, PRN, if patient receiving piggyback infusions and maintenance fluids are not ordered OR KVO fluids to protect IV site / prevent frequent line interruptions/ long duration, Starting on Wed03/30/23 at 1201, Preprocedure, For piggyback infusion, administer at same rate as piggyback for a total of 25 mL. Enter 25 mL into dose field and piggyback rate into rate field of order. If piggyback is infusing at a rate less than 100 mL/hr, enter 25 mL into dose field and 100 mL/hr into rate field of order. For KVO fluids, enter rate of 20 mL/hr or less into rate field of order. sodium chloride 0.9% (NS) flush 10 mL 10 mL, IntraVENous, PRN, line care, Starting on Wed03/30/23 at 1201, Preprocedure, After every IV line use FOR RECORDS PERTAINING TO PATIENTS WHO ARE OR HAVE BEEN ENROLLED IN A CHEMICAL DEPENDENCY/SUBSTANCEABUSE PROGRAM, SOME INFORMATION MAY BE OMITTED. This clinical summary was aggregated from multiple sources. Caution should be exercised in using it in the provision of clinical care. This summary normalizes information from multiple sources, and as a consequence, information in this document may materially change the coding, format and clinical context of patient data. In addition, data may be omitted in some cases. CLINICAL DECISIONS SHOULD BE BASED ON THE PRIMARY CLINICAL RECORDS. [facility] [employer] [facility]. provides no warranty or guarantee of the accuracy or completeness of information in this document.
== END | disposition home or self-care (01) ==
LOC: MTRAD 10:41
PROVIDERS: PCP Student in an Organized Health Care Education/Training Program; Referring Provider Orthopaedic Surgery; Visit Provider Orthopaedic Surgery
DX: Z96.651 Presence of right artificial knee joint (principal)
CPT/HCPCS: 73562

== ENCOUNTER → 2025-09-13 | Outpatient (CLI) | payer OTHER, SELFPAY ==
[2025-09-13 16:40] LABS: Hematocrit 39.7 % (40-54); Hemoglobin 13.1 g/dL (13.0-16.5); Mean Corp Hgb Conc 33.0 g/dL (32-36); Mean Corpuscular Volume 89.2 fL (80-94); Mean Platelet Vol. 11.3 fl (6.2-12.0); Platelet Count 267 K/mm3 (150-450); RBC Distribution Width CV 12.8 % (11.6-14.6); RBC Distribution Width SD 41.7 fl (35.1-43.9); Red Blood Count 4.45 M/mm3 (4.6-6.2); White Blood Count 8.0 K/mm3 (4.4-11.0)
[2025-09-13 17:32] LABS: AST(SGOT) 24 U/L (<=37); Alanine Aminotransfer ALT/SGPT 24 U/L (<=46); Albumin, Serum 4.2 g/dL (3.4-4.8); Alkaline Phosphatase 85 U/L (40-129); Anion Gap 10 (5-15); BUN 10 mg/dL (4-19); BUN/Creat Ratio 9.7 RATIO (10-20); CRP 3.22 mg/L (0.0-3.0); Calcium,Total 9.7 mg/dL (7.6-11.0); Carbon Dioxide 25.8 mmol/L (21.0-32.0); Chloride 104 mmol/L (98-108); Globulin 2.9 g/dL (2.2-4.2); Glucose 76 mg/dL (70-99); PSA,Total- Diagnostic 5.43 ng/mL (0.00-4.00); Potassium 4.1 mmol/L (3.3-5.1)
== END | disposition home or self-care (01) ==
LOC: LAB 16:03
PROVIDERS: PCP Orthopaedic Surgery; Referring Provider Student in an Organized Health Care Education/Training Program; Visit Provider Student in an Organized Health Care Education/Training Program
DX: M25.469 Effusion, unspecified knee (principal); R97.20 Elevated prostate specific antigen [PSA]
CPT/HCPCS: 36415; 80053; 84153; 85027; 85652; 86140

== ENCOUNTER → 2025-09-18 | Outpatient (CLI) | payer OTHER, SELFPAY ==
--- NOTE | 2025-09-18 18:44 | RAD_ITS ---
PROCEDURE: RAD/Knee 4 or More Views
== END | disposition home or self-care (01) ==
LOC: CVS 18:41
PROVIDERS: PCP Orthopaedic Surgery; Visit Provider Nurse Practitioner Family
DX: Z96.651 Presence of right artificial knee joint (principal)
CPT/HCPCS: 73564

== ENCOUNTER → 2025-09-19 | Outpatient (CLI) | payer OTHER, SELFPAY ==
[2025-09-19 16:01] LABS: Hematocrit 39.5 % (40-54); Hemoglobin 13.1 g/dL (13.0-16.5); Immature Granulocytes Count 0.070 X10^3/uL (0.0-0.0); Mean Corp Hgb Conc 33.2 g/dL (32-36); Mean Corpuscular Volume 89.8 fL (80-94); Mean Platelet Vol. 11.4 fl (6.2-12.0); NRBC Flagged by Analyzer 0 % (0-5); Platelet Count 268 K/mm3 (150-450); RBC Distribution Width CV 12.7 % (11.6-14.6); RBC Distribution Width SD 41.5 fl (35.1-43.9); Red Blood Count 4.40 M/mm3 (4.6-6.2); White Blood Count 7.8 K/mm3 (4.4-11.0)
[2025-09-19 16:36] LABS: Uric Acid 5.3 mg/dL (3.5-7.2)
[2025-09-19 19:45] LABS: Color / Synovial Fluid Yellow (Pale Yellow); Source- Body Fluid SYNOVIAL
[2025-09-19 19:46] LABS: Appearance /Synovial Fluid Turbid (CLEAR)
[2025-09-19 19:55] LABS: Synovial Fld Mononuclear WBC # 0.216 10^3/ul; Synovial Fld Mononuclear WBC % 62.0 %; Synovial Fld Polynuclear WBC # 0.132 10^3/uL; Synovial Fld Polynuclear WBC % 38.0 %; Total Cell Count Synovial Fld 0.3830 10^3/uL (0.000-0.000); WBC / Synovial Fluid 0.3480 10^3/uL (0.000-0.002)
[2025-09-19 19:59] LABS: RBC /Synovial Fluid 0.012 10^6/uL (0)
[2025-09-19 20:01] LABS: AUTO B FLUID DILUENT BKGD CT WBC <0.1 RBC <0.01 (W<.1,R<.01)
[2025-09-19 20:02] LABS: Source / Synovial Fluid RIGHT KNEE
[2025-09-19 22:47] LABS: Body Fluid QC Type(s) BF1Q, BF2Q; CRYSTALS, BODY FLUID NO CRYSTALS SEEN
[2025-09-20 00:33] LABS: Monocyte /Synovial Fluid 62 %
[2025-09-21 14:08] LABS: GLUCOSE, SYNOVIAL FLUID 104 mg/dL (.); PROTEIN, SYNOVIAL FLUID 3.4 g/dL (.)
== END | disposition home or self-care (01) ==
LOC: MTLAB 14:46
PROVIDERS: PCP Student in an Organized Health Care Education/Training Program; Referring Provider Orthopaedic Surgery; Visit Provider Orthopaedic Surgery
DX: M25.461 Effusion, right knee (principal)
CPT/HCPCS: 36415; 82945; 83605; 84157; 84550; 85025; 87070; 87075; 87205; 89050; 89051; 89060